=== PATIENT | female | born 1935 | race American Indian/Alaskan Native ===

== ENCOUNTER 2017-05-22 12:36 | Emergency (ER) | payer MEDICARE ==
[2017-05-22 13:07] VITALS: TEMP 98.5
--- NOTE | 2017-05-22 14:00 | ED PDOC ---
HPI: General Adult Time Seen by Provider: 05/22/17 13:14 Chief Complaint (Nursing): Lower Extremity Problem/Injury History Per: Patient Additional Complaint(s): Pt. states for the past 2 weeks she's had R lower leg pain and swelling. States on 04/19/2017 she took a [address] from [place] to here. She was seen by her PMD, Dr. Riojas who instructed her to come to ED for an US of the leg. Denies chest pain, palpitations, trauma, numbness, tingling, paresthesias, change in color. Past Medical History Reviewed: Historical Data, Nursing Documentation, Vital Signs Vital Signs: Last Vital Signs Temp 98.5 F 05/22/17 13:04 Pulse 77 05/22/17 13:04 Resp 17 05/22/17 13:04 BP 148/74 05/22/17 13:04 Pulse Ox 99 05/22/17 14:01 - Family History Family History: States: No Known Family Hx - Allergies Allergies/Adverse Reactions: Allergies Allergy/AdvReac Type Severity Reaction Status Date / Time tuberculin,PPD,multi-puncture Allergy ANAPHYLAXIS Verified 05/22/17 13:04 Review of Systems ROS Statement: Except As Marked, All Systems Reviewed And Found Negative Musculoskeletal: Positive for: Leg Pain Physical Exam - Physical Exam Appears: Positive for: Well, Non-toxic, No Acute Distress Skin: Positive for: Normal Color, Warm. Negative for: Rash Eye Exam: Positive for: Normal appearance Cardiovascular/Chest: Positive for: Regular Rate, Rhythm Respiratory: Positive for: Normal Breath Sounds. Negative for: Respiratory Distress Pulses-Dorsalis Pedis (L): 2+ Pulses-Dorsalis Pedis (R): 2+ Extremity: Positive for: Normal ROM, Calf Tenderness (R lower leg tenderness), Other (negative Yara's sign b/l; no skin changes to both legs). Negative for: Pedal Edema (b/l) Neurologic/Psych: Positive for: Alert, Oriented - Laboratory Results Result Diagrams: 05/22/17 13:47 05/22/17 13:47 - ECG O2 Sat by Pulse Oximetry: 99 - Progress ED Course And Treament: Labs ordered. Duplex R lower extremity ordered. Duplex RLE: no DVT Case d/w Dr. Riojas including elevated BNP and states pt. can be dc'd and f/u in his office. Disposition - Clinical Impression Clinical Impression: Leg swelling - Patient ED Disposition Is Patient to be Admitted: No - Disposition Referrals: Hebert Riojas MD [Family Provider] - Disposition: Routine/Home Disposition Time: 16:18 Condition: STABLE Instructions: Leg Pain (ED) Forms: [facility] (Fijian)
[2017-05-22 14:09] LABS: BASO # 0.1 K/uL (0.0-0.2); BASO % 0.9 % (0.0-2.0); EOS # 0.1 K/uL (0.0-0.7); EOS % 2.5 % (0.0-4.0); HEMATOCRIT 28.2 % (34.0-47.0); LYMPH # 0.7 K/uL (1.0-4.3); LYMPH % 12.1 % (20.0-40.0); MEAN CELL VOLUME 89.1 fl (81.0-99.0); MEAN CORPUSCULAR HEMOGLOBIN 28.9 pg (27.0-31.0); MEAN CORPUSCULAR HGB CONC 32.4 g/dL (33.0-37.0); MEAN PLATELET VOLUME 7.9 fl (7.2-11.7); MONO # 0.7 K/uL (0.0-0.8); MONO % 11.6 % (0.0-10.0); NEUT # 4.2 K/uL (1.8-7.0); NEUT % 72.9 % (50.0-75.0); NRBC % 0.1 % (0.0-0.0); RED CELL DISTRIBUTION WIDTH 14.3 % (11.5-14.5); WHITE BLOOD COUNT 5.8 K/uL (4.8-10.8)
[2017-05-22 14:17] LABS: ALB/GLOB RATIO 1.5 (1.0-2.1); ALKALINE PHOSPHATASE 58 U/L (38-126); AST/SGOT 25 U/L (14-36); BLOOD UREA NITROGEN 14 mg/dl (7-17); CARBON DIOXIDE 22 mmol/L (22-30); CHLORIDE 100 mmol/L (98-107); GFR AFRICAN-AMERICAN > 60; GLUCOSE,RANDOM 128 mg/dL (65-105); POTASSIUM 4.8 MMOL/L (3.6-5.0); SODIUM 133 mmol/l (132-148); TOTAL PROTEIN 6.7 G/DL (6.3-8.2)
[2017-05-22 14:27] LABS: ALT/SGPT 21 U/L (9-52); BILIRUBIN,TOTAL 0.5 mg/dl (0.2-1.3); CALCIUM 9.2 mg/dL (8.4-10.2)
[2017-05-22 14:37] LABS: PARTIAL THROMBOPLASTIN TIME 39.4 Seconds (25.6-37.1)
--- NOTE | 2017-05-22 15:10 | US ---
PROCEDURE: Right lower extremity venous duplex Doppler. HISTORY: pain and swelling COMPARISON: None available. TECHNIQUE: Common femoral, superficial femoral, popliteal and posterior tibial veins were evaluated. Flow was assessed with color Doppler, compressibility, assessment of phasic flow and augmentation response. FINDINGS: COMMON FEMORAL VEIN: Normal flow, compressibility and augmentation response. SUPERFICIAL FEMORAL VEIN: Normal flow, compressibility and augmentation response. POPLITEAL VEIN: Normal flow, compressibility and augmentation response. POSTERIOR TIBIAL VEIN: Normal flow, compressibility and augmentation response. OTHER FINDINGS: There are 3 hypoechoic collections in the popliteal fossa, the largest measures 1.2 x 1.3 cm. There is diffuse subcutaneous edema in the calf, ankle and popliteal fossa. IMPRESSION: No evidence of deep venous thrombosis in the right lower extremity. At least 3 fluid collections in the popliteal fossa, the larger of which likely represents a popliteal cyst. The sterility of these collections cannot be determined on ultrasound examination.
[2017-05-22 16:33] VITALS: BP 118/69; PULSE 72; RESP 18; O2SAT 98
== END 2017-05-22 16:33 | disposition home or self-care (01) ==
LOC: H.ER 12:36
DX: R60.0 Localized edema (principal); R79.89 Other specified abnormal findings of blood chemistry

== ENCOUNTER 2017-09-17 12:02 | Inpatient (IN) | payer MEDICARE ==
--- NOTE | 2017-09-17 13:29 | ED PDOC ---
Lower Extremity Pain/Injury Chief Complaint (Provider): s/p fall, poor PO intake History Per: Patient, Family History/Exam Limitations: no limitations Onset/Duration Of Symptoms: Days Current Symptoms Are (Timing): Still Present Severity: Moderate Pain Scale Rating Of: 5 Additional Complaint(s): 82 y/o female, with extensive PMHx, presents for evaluation secondary to poor PO intake. Pt suffered a fall on Wednesday 09/13 and underwent evaluation on [facility]. Head CT was negative, but pertinent evaluation findings were: nasal fracture, right wrist fracture, and left patellar fracture. No intervention was done at the hospital and pt was discharge on Tramadol and Meloxicam. Since discharge from [facility], mother and pt reports increased nausea, lack of appetite, poor PO fluid intake and constipation. Pt thinks the medications maybe causing her issues. Pain is currently 5/10. No headaches, changes in vision, CP/SOB/palpitations, V/D, numbness/tingling. PMD: Dr. Mcmanus PMR: Dr. Prince <Jose Martínez - Last Filed: 09/17/17 15:16> <Roya Lara - Last Filed: 09/17/17 16:21> Time Seen by Provider: 09/17/17 13:04 Chief Complaint (Nursing): Lower Extremity Problem/Injury Supervising Attending Note - Supervising Attending Note The Documented history was done by the: Physician Laundry Housekeeping Aide The documented physical exam was done by the: Physician Laundry Housekeeping Aide The documented procedures were done by the: Physician Laundry Housekeeping Aide - Attestation: I have personally seen and examined this patient.: Yes I have fully participated in the care of the patient.: Yes I have reviewed all pertinent clinical information, including history, physical exam and plan: Yes <Roya Lara - Last Filed: 09/17/17 16:21> Past Medical History Vital Signs: Last Vital Signs Temp 97.9 F 09/17/17 12:49 Pulse 85 09/17/17 12:49 Resp 16 09/17/17 12:49 BP 126/75 09/17/17 12:49 Pulse Ox 100 09/17/17 12:49 - Medical History PMH: Anemia, HTN, Hypercholesterolemia, Osteoporosis - Family History Family History: States: Unknown Family Hx - Immunization History Hx Tetanus Toxoid Vaccination: No Hx Influenza Vaccination: No Hx Pneumococcal Vaccination: No <BonideboraNeilJose - Last Filed: 09/17/17 15:16> Vital Signs: Last Vital Signs Temp 97.9 F 09/17/17 12:49 Pulse 85 09/17/17 12:49 Resp 16 09/17/17 12:49 BP 126/75 09/17/17 12:49 Pulse Ox 100 09/17/17 15:20 <LaraRoya ely Zac - Last Filed: 09/17/17 16:21> - Home Medications Home Medications: Ambulatory Orders Medication Instructions Recorded Atorvastatin [Lipitor] 09/17/17 - Allergies Allergies/Adverse Reactions: Allergies Allergy/AdvReac Type Severity Reaction Status Date / Time tuberculin,PPD,multi-puncture Allergy ANAPHYLAXIS Verified 09/17/17 12:48 levetiracetam [From Keppra] AdvReac DIZZINESS Verified 09/17/17 12:49 Wells Criteria for PE - Wells Criteria for Pulmonary Embolism Clinical Signs and Symptoms of DVT: No P.E is #1 Diagnosis, or Equally Likely: No Heart Rate >100: No Total Score: 0 <Jose Martínez - Last Filed: 09/17/17 15:16> Review of Systems ROS Statement: Except As Marked, All Systems Reviewed And Found Negative <Jose Martínez - Last Filed: 09/17/17 15:16> Physical Exam - Reviewed Nursing Documentation Reviewed: Yes Vital Signs Reviewed: Yes - Physical Exam Appears: Positive for: Non-toxic, No Acute Distress Head Exam: Positive for: NORMOCEPHALIC. Negative for: ATRAUMATIC (healing ecchymosis ) Skin: Positive for: Warm, Dry. Negative for: Pallor, Rash Eye Exam: Positive for: EOMI, PERRL, Other (left racoon eye ) ENT: Positive for: Other (nasal bridge edema healing ecchymosis s/p fracture) Neck: Positive for: Supple Cardiovascular/Chest: Positive for: Chest Non Tender, Irregularly Irregular. Negative for: JVD, Murmur Respiratory: Positive for: Normal Breath Sounds. Negative for: Decreased Breath Sounds, Rales, Rhonchi, Wheezing Pulses-Carotid (L): 2+ Pulses-Carotid (R): 2+ Gastrointestinal/Abdominal: Positive for: Bowel Sounds (normal BS), Soft. Negative for: Tenderness, Distended, Guarding, Rebound Extremity: Positive for: Tenderness (tenderness over left patella ). Negative for: Pedal Edema, Calf Tenderness, Deformity Neurologic/Psych: Positive for: Alert, market superintendent II-XII, Oriented. Negative for: Motor/Sensory Deficits <Jose Martínez - Last Filed: 09/17/17 15:16> - Laboratory Results Result Diagrams: 09/17/17 13:50 09/17/17 14:00 - ECG O2 Sat by Pulse Oximetry: 100 - Progress ED Course And Treament: CBC CMP UA EKG re-evaluated reviewed labs, discussed with [facility] resident Dr. Subramanian, pt to be admitted to acute rehab Re-evaluation Time: 15:17 Condition: Re-examined, Unchanged <Jose Martínez - Last Filed: 09/17/17 15:16> - Laboratory Results Result Diagrams: 09/17/17 13:50 09/17/17 14:00 <Roya Lara - Last Filed: 09/17/17 16:21> Disposition - Patient ED Disposition Is Patient to be Admitted: Yes - Disposition Disposition: Rehab Facility/Unit Disposition Time: 15:19 - Pt Status Changed To: Hospital Disposition Of: Inpatient - Admit Certification Admit to Inpatient:: After my assessment, the patient will require hospitalization for at least two midnights. This is because of the severity of symptoms shown, intensity of services needed, and/or the medical risk in this patient being treated as an outpatient. - POA Present On Arrival: Falls Or Trauma (s/p fall 09/13/2016) <Jose Martínez - Last Filed: 09/17/17 15:16> <Roya Lara - Last Filed: 09/17/17 16:21> - Clinical Impression Clinical Impression: Ankle injury, Physical deconditioning, Patellar fracture - Disposition Condition: STABLE
[2017-09-17 14:22] LABS: HEMOGLOBIN 9.2 g/dL (12.0-16.0); MEAN CELL VOLUME 81.3 fl (81.0-99.0); MEAN CORPUSCULAR HEMOGLOBIN 26.7 pg (27.0-31.0); MEAN CORPUSCULAR HGB CONC 32.8 g/dL (33.0-37.0); RBC 3.44 Mil/uL (3.80-5.20); RED CELL DISTRIBUTION WIDTH 15.5 % (11.5-14.5); WHITE BLOOD COUNT 5.8 K/uL (4.8-10.8)
[2017-09-17 14:32] LABS: ALB/GLOB RATIO 1.1 (1.0-2.1); ALBUMIN 3.7 g/dL (3.5-5.0); ALT/SGPT 21 U/L (9-52); AST/SGOT 22 U/L (14-36); BLOOD UREA NITROGEN 14 mg/dl (7-17); CALCIUM 8.9 mg/dL (8.4-10.2); GFR AFRICAN-AMERICAN > 60; GFR NON-AFRICAN AMERICAN > 60
--- NOTE | 2017-09-17 16:04 | CARD ---
APPROVED REPORT EKG Measurement Heart [id number] <Conclusion> Atrial fibrillation Nonspecific ST abnormality Abnormal ECG
--- NOTE | 2017-09-17 16:24 | CP.PCM.HP ---
History of Present Illness - History of Present Illness History of Present Illness: 82 yr old F presented to ED with complaint of severe right wrist and left knee pain along with intolerance to food and liquids s/p mechanical fall at home on . PMHx includes CAD s/p 4 stents placed, chronic A-fib -rate controlled, NIDDM type 2, chronic distal lateral RLE ulcer. Patient was seen and evaluated at [facility], was informed she had a left patella fracture and right wrist sprain, her right hand was placed in a splint and wrapped in JUANA bandage, she is right handed and could not get her balance using the cane with her left hand. She was discharged on the 09/14/17 with instructions to follow up with orthopedics as outpatient. Patient lives alone and was not able to move around her home as there are stairs leading up to her apartment and she also felt overall malaise, nausea/vomiting and couldn't keep food down. She could not get an appointment sooner with orthopedics outpatient. Denies chest pain, SOB, syncope or fevers/chills. Reports extreme difficulty moving around, getting her meds and doing minimal ADL's. PMD: Dr. Hardy Specialists: Dr. Nunez-wound care ; waiting to have appt with new energy efficiency finance manager: Dr. Boyd PMHx: CAD s/p 4 stents placed March 2009, chronic A-fib -rate controlled, NIDDM type 2, chronic distal lateral RLE ulcer SurgHx: BTL, 4 cardiac stents March 2009, tonsillectomy/adenoidectomy, Right thumb trigger finger release FMHx: mother from [place], had thyroid disease, Father at 56 yrs old from stomach cancer, sister at 51 yrs old from aneurysm SocHx: denies smoking, Etoh and drugs Medications: see medication reconciliation Allergies: tuberculin skin test/PPD, levetiracetam Present on Admission - Present on Admission Any Indicators Present on Admission: No History of DVT/PE: No History of Uncontrolled Diabetes: No Urinary Catheter: No Decubitus Ulcer Present: No History Surgical Site Infection Following: None Review of Systems - Review of Systems All systems: reviewed and no additional remarkable complaints except (for what is mentioned in the HPI) - Constitutional Constitutional: Weakness. absent: Chills - EENT Eyes: absent: Change in Vision Ears: absent: Dizziness Nose/Mouth/Throat: absent: Nasal Congestion, Nasal Discharge, Dysphagia - Cardiovascular Cardiovascular: Leg Ulcers (chronic distal lateral RLE). absent: Chest Pain, Palpitations, Pedal Edema - Respiratory Respiratory: absent: Cough, Dyspnea, Hemoptysis - Gastrointestinal Gastrointestinal: Nausea, Vomiting - Genitourinary Genitourinary: absent: Difficulty Urinating, Dysuria - Musculoskeletal Musculoskeletal: Joint Swelling (left knee s/p mechanical fall) Additional comments: right wrist pain - Neurological Neurological: Disequilibrium (cannot balance herself using left hand and cane, she is right hand dominant). absent: Confusion, Syncope - Psychiatric Psychiatric: absent: Anxiety, Homicidal Ideation, Suicidal Ideation - Endocrine Endocrine: absent: Polyphagia, Polyuria - Hematologic/Lymphatic Hematologic: absent: Easy Bleeding, Easy Bruising Past Patient History - Past Social History Smoking Status: Never Smoked - CARDIAC Hx Hypercholesterolemia: Yes Hx Hypertension: Yes - ENDOCRINE/METABOLIC Hx Diabetes Mellitus Type 2: Yes - HEMATOLOGICAL/ONCOLOGICAL Hx Anemia: Yes - MUSCULOSKELETAL/RHEUMATOLOGICAL Hx Osteoporosis: Yes - PSYCHIATRIC Hx Substance Use: No - ANESTHESIA Hx Anesthesia: No Meds Allergies/Adverse Reactions: Allergies Allergy/AdvReac Type Severity Reaction Status Date / Time tuberculin,PPD,multi-puncture Allergy ANAPHYLAXIS Verified 09/17/17 12:48 levetiracetam [From [facility]] AdvReac DIZZINESS Verified 09/17/17 12:49 Physical Exam - Constitutional Appears: No Acute Distress - Head Exam Head Exam: NORMOCEPHALIC Additional comments: ecchymosis present over dorsum of nose and left palpebromalar sulcus area - Eye Exam Eye Exam: EOMI, PERRL - ENT Exam ENT Exam: Mucous Membranes Dry - Neck Exam Neck exam: Positive for: Full Rom - Respiratory Exam Respiratory Exam: Clear to Auscultation Bilateral, NORMAL BREATHING PATTERN - Cardiovascular Exam Cardiovascular Exam: REGULAR RHYTHM, +S1, +S2 - GI/Abdominal Exam GI & Abdominal Exam: Normal Bowel Sounds, Soft. absent: Tenderness - Extremities Exam Extremities exam: Positive for: joint swelling (significant left knee and surrounding area with tenderness to light palpation all around), pedal pulses present. Negative for: pedal edema Additional comments: Right hand in posterior splint and juana bandage, Stage 2 RLE ulcer lateral distal along fibularis longus area, 2 x 1 cm with granulation tissue, no discharge - Back Exam Back exam: absent: CVA tenderness (L), CVA tenderness (R) - Neurological Exam Neurological exam: Alert, CN II-XII Intact, Oriented x3 - Psychiatric Exam Psychiatric exam: Normal Affect, Normal Mood - Skin Skin Exam: Dry, Normal Color, Warm Results - Vital Signs Recent Vital Signs: Last Vital Signs Temp 97.9 F 09/17/17 12:49 Pulse 85 09/17/17 12:49 Resp 16 09/17/17 12:49 BP 126/75 09/17/17 12:49 Pulse Ox 100 09/17/17 15:20 - Labs Result Diagrams: 09/17/17 13:50 09/17/17 14:00 Labs: Laboratory Results - last 24 hr 09/17/17 09/17/17 13:50 14:00 WBC 5.8 RBC 3.44 L Hgb 9.2 L Hct 27.9 L MCV 81.3 D MCH 26.7 L MCHC 32.8 L RDW 15.5 H Plt Count 293 Sodium 134 Potassium 3.8 Chloride 96 L Carbon Dioxide 28 Anion Gap 14 BUN 14 Creatinine 0.8 Est GFR ( Amer) > 60 Est GFR (Non-Af Amer) > 60 Random Glucose 227 H Calcium 8.9 Total Bilirubin 0.5 AST 22 ALT 21 Alkaline Phosphatase 77 Total Protein 7.0 Albumin 3.7 Globulin 3.3 Albumin/Globulin Ratio 1.1 Assessment & Plan - Assessment and Plan (Free Text) Assessment: 82 yr old F admitted for intolerance to PO diet, gait imbalance and difficulties with minimal ADL's s/p mechanical fall resulting in left patella fracture and right wrist sprain. -admit to telemetry -continue home medications -Orthopedic consult appreciated: will follow recommendations -Cardiology consult appreciated: will follow recommendations, chronic A-fib- rate controlled on Xarelto -liquid diet, Zofran PRN -Podiatry consult: Dr. Nunez -chronic RLE ulcer -wound care -IVF -f/u UA, next day CBC, CMP, coags - Date & Time Date: 09/17/17 Time: 15:45
[2017-09-17] MEDS: Sodium Chloride 0.9% 1,000 ML IV SCH (17:30)
[2017-09-17] MEDS: Latanoprost 0.005% Opht SOUTION OU SCH (21:56)
[2017-09-18] MEDS ORDERED: Docusate-Senna 50 mg-8.6 mg Tab PO ONE (00:06)
[2017-09-18 06:05] LABS: BASO # 0.1 K/uL (0.0-0.2); BASO % 0.9 % (0.0-2.0); EOS # 0.3 K/uL (0.0-0.7); EOS % 5.2 % (0.0-4.0); HEMOGLOBIN 7.5 g/dL (12.0-16.0); LYMPH # 0.7 K/uL (1.0-4.3); LYMPH % 13.1 % (20.0-40.0); MEAN CELL VOLUME 81.1 fl (81.0-99.0); MEAN CORPUSCULAR HEMOGLOBIN 26.2 pg (27.0-31.0); MEAN CORPUSCULAR HGB CONC 32.3 g/dL (33.0-37.0); MEAN PLATELET VOLUME 8.2 fl (7.2-11.7); MONO # 0.6 K/uL (0.0-0.8); MONO % 10.9 % (0.0-10.0); NEUT # 3.9 K/uL (1.8-7.0); NEUT % 69.9 % (50.0-75.0); RBC 2.85 Mil/uL (3.80-5.20); RED CELL DISTRIBUTION WIDTH 15.1 % (11.5-14.5); WHITE BLOOD COUNT 5.6 K/uL (4.8-10.8)
[2017-09-18 06:22] LABS: INR 1.3 (0.9-1.2); PROTHROMBIN TIME 14.5 Seconds (9.8-13.1)
[2017-09-18 06:23] LABS: PARTIAL THROMBOPLASTIN TIME 33.7 Seconds (25.6-37.1)
[2017-09-18 06:32] LABS: BLOOD UREA NITROGEN 17 mg/dl (7-17); CALCIUM 8.7 mg/dL (8.4-10.2); GFR AFRICAN-AMERICAN > 60; GFR NON-AFRICAN AMERICAN 53
[2017-09-18] MEDS: Sodium Chloride 0.9% 1,000 ML IV SCH (06:40)
[2017-09-18] MEDS: GlipiZIDE 2.5 mg SR Tab PO SCH (08:18)
[2017-09-18] MEDS: Metoprolol Succinate 25 mg XL Tab PO SCH (08:21)
[2017-09-18] MEDS: diltiaZEM 240 mg/24 Hours CD Cap PO SCH (08:22)
[2017-09-18] MEDS: Venlafaxine 37.5 mg ER Cap PO SCH (08:22)
[2017-09-18] MEDS ORDERED: Enoxaparin 40 mg Syringe SC SCH (09:00)
[2017-09-18 10:08] LABS: IRON 20 ug/dL (37-170)
[2017-09-18 10:17] LABS: TOTAL IRON BINDING CAPACITY 324 ug/dL (250-450)
[2017-09-18 10:19] LABS: % IRON SATURATION 6 % (20-55)
[2017-09-18 10:28] LABS: FERRITIN 66.6 ng/Ml (11.1-264.0)
--- NOTE | 2017-09-18 11:02 | CP.PCM.CON ---
History of Present Illness - History of Present Illness History of Present Illness: THE PATIENT IS AN 82 YEAR OLD FEMALE WHO TRIPPED ON A THROW RUG IN HER HOME ON AND FELL HITTING HER RIGHT WRIST, LEFT KNEE AND FACE. SHE SUSTAINED A LEFT PATELLA FRACTURE, NASAL FRACTURES AND A RIGHT WRIST SPRAIN AND WAS SEEN AT [facility] ER AND WAS DISCHARGED WITH HER DAUGHTER TO HER DAUGHTER 'S HOUSE. SHE COULD NOT CARRY ON WITH ACTIVITIES OF DAILY LIVING AND WENT TO THE ER AT [facility] AND WAS ADMITTED AND WILL GO TO REHAB. SHE ALSO HAS A HISTORY OF CAD, CHRONIC ATRIAL FIBRILLATION, HYPERTENSION, HYPERLIPIDEMIA, TYPE 2 DM AND DEPRESSION. CARDIOLOGY WAS ASKED TO SEE HER DUE TO HER CARDIAC HISTORY. 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 SHE WENT ON TO HAVE A CARDIAC CATHETERIZATION AND HAD CORONARY STENT INSERTIONS AND HAS BEEN STABLE SINCE. SHE STATES THAT SHE NEVER HAD A HEART ATTACK TO HER KNOWLEDGE. SHE DEVELOPED ATRIAL FIBRILLATION IN 2014 AND WAS PLACED ON XARELTO. SHE WAS ASKED IF SHE POSSIBLY GOT LIGHTHEADED OR HAD A BRIEF LOC ON 09/13/17 BUT EMPHATICALLY INSISTS THAT SHE JUST SLIPPED ON A THROW RUG CAUSING HER TO FALL AND SUSTAIN HER INJURIES. Past Patient History - Past Medical History & Family History Past Medical History?: Yes - Past Social History Smoking Status: Never Smoked - CARDIAC Hx Hypercholesterolemia: Yes Hx Hypertension: Yes - ENDOCRINE/METABOLIC Hx Diabetes Mellitus Type 2: Yes - HEMATOLOGICAL/ONCOLOGICAL Hx Anemia: Yes - MUSCULOSKELETAL/RHEUMATOLOGICAL Hx Osteoporosis: Yes - PSYCHIATRIC Hx Substance Use: No - ANESTHESIA Hx Anesthesia: No Meds Allergies/Adverse Reactions: Allergies Allergy/AdvReac Type Severity Reaction Status Date / Time tuberculin,PPD,multi-puncture Allergy ANAPHYLAXIS Verified 09/17/17 12:48 levetiracetam [From [facility]] AdvReac DIZZINESS Verified 09/17/17 12:49 - Medications Medications: Current Medications Acetaminophen (Tylenol 325mg Tab) 650 mg PO Q6 PRN PRN Reason: Pain, moderate (4-7) Aspirin (Ecotrin) 81 mg PO HS [facility] Last Admin: 09/17/17 21:56 Dose: 81 mg Atorvastatin Calcium (Lipitor) 40 mg PO HS [facility] Last Admin: 09/17/17 21:56 Dose: 40 mg Diltiazem HCl (Cardizem Cd) 240 mg PO DAILY [facility] Last Admin: 09/18/17 08:22 Dose: 240 mg Ferrous Sulfate (Feosol) 325 mg PO DAILY [facility] Last Admin: 09/18/17 08:18 Dose: 325 mg Glipizide (Glucotrol Xl) 2.5 mg PO DAILYWM [facility] Last Admin: 09/18/17 08:18 Dose: 2.5 mg Sodium Chloride (Sodium Chloride 0.9%) 1,000 mls @ 80 mls/hr IV .[id number] [facility] Stop: 09/18/17 16:03 Last Admin: 09/18/17 06:40 Dose: 80 mls/hr Isosorbide Mononitrate (Imdur) 60 mg PO DAILY [facility] Last Admin: 09/18/17 08:22 Dose: 60 mg Latanoprost (Xalatan Opht) 1 drop OU HS [facility] Last Admin: 09/17/17 21:56 Dose: 1 drop Metformin HCl (Glucophage) 1,000 mg PO BID [facility] Last Admin: 09/18/17 08:18 Dose: 1,000 mg Metoprolol Succinate (Toprol Xl) 25 mg PO DAILY [facility] Last Admin: 09/18/17 08:21 Dose: 25 mg Ondansetron HCl (Zofran Inj) 4 mg IVP Q6 PRN PRN Reason: Nausea/Vomiting Rivaroxaban (Xarelto) 15 mg PO DAILY@1700 [facility] PRN Reason: Protocol Timolol Maleate (Timoptic 0.5% Oph Soln) 1 drop OU DAILY [facility] Last Admin: 09/18/17 08:23 Dose: 1 drop Venlafaxine HCl (Effexor Xr) 37.5 mg PO DAILY [facility] Last Admin: 09/18/17 08:22 Dose: 37.5 mg Physical Exam - Respiratory Exam Respiratory Exam: Clear to Auscultation Bilateral - Cardiovascular Exam Cardiovascular Exam: Irregular Rhythm, +S1, +S2 - Extremities Exam Additional comments: RIGHT WRIST WITH A SPLINT AND BANDAGES LEFT KNEE WITH A PLASTIC CAST - Additional Findings Additional findings: EKG ATRIAL FIBRILLATION, R 60 BPM, NSSTT CHANGES H/H 9.2/27.[address] 293K 09/17/17 H/H TODAY 7.7/23.1 Results - Vital Signs Recent Vital Signs: Last Vital Signs Temp 98.2 F 09/18/17 07:36 Pulse 69 09/18/17 08:22 Resp 18 09/18/17 07:36 BP 139/69 09/18/17 08:22 Pulse Ox 98 09/18/17 07:36 - Labs Result Diagrams: 09/18/17 05:30 09/18/17 05:30 Labs: Laboratory Results - last 24 hr 09/17/17 09/17/17 09/17/17 13:50 14:00 16:53 WBC 5.8 RBC 3.44 L Hgb 9.2 L Hct 27.9 L MCV 81.3 D MCH 26.7 L MCHC 32.8 L RDW 15.5 H Plt Count 293 MPV Neut % (Auto) Lymph % (Auto) Porter % (Auto) Eos % (Auto) Baso % (Auto) Neut # Lymph # Porter # Eos # Baso # PT INR APTT Sodium 134 Potassium 3.8 Chloride 96 L Carbon Dioxide 28 Anion Gap 14 BUN 14 Creatinine 0.8 Est GFR ( Amer) > 60 Est GFR (Non-Af Amer) > 60 POC Glucose (mg/dL) 168 H Random Glucose 227 H Calcium 8.9 Iron TIBC % Saturation Ferritin Total Bilirubin 0.5 AST 22 ALT 21 Alkaline Phosphatase 77 Total Protein 7.0 Albumin 3.7 Globulin 3.3 Albumin/Globulin Ratio 1.1 BBK History Checked 09/17/17 09/18/17 09/18/17 21:27 05:30 05:30 WBC 5.6 RBC 2.85 L Hgb 7.5 L Hct 23.1 L MCV 81.1 MCH 26.2 L MCHC 32.3 L RDW 15.1 H Plt Count 238 MPV 8.2 Neut % (Auto) 69.9 Lymph % (Auto) 13.1 L Porter % (Auto) 10.9 H Eos % (Auto) 5.2 H Baso % (Auto) 0.9 Neut # 3.9 Lymph # 0.7 L Porter # 0.6 Eos # 0.3 Baso # 0.1 PT INR APTT Sodium 133 Potassium 3.9 Chloride 100 Carbon Dioxide 24 Anion Gap 13 BUN 17 Creatinine 1.0 Est GFR ( Amer) > 60 Est GFR (Non-Af Amer) 53 POC Glucose (mg/dL) 136 H Random Glucose 97 Calcium 8.7 Iron TIBC % Saturation Ferritin Total Bilirubin AST ALT Alkaline Phosphatase Total Protein Albumin Globulin Albumin/Globulin Ratio BBK History Checked 09/18/17 09/18/17 09/18/17 05:30 05:35 09:44 WBC RBC Hgb Hct MCV MCH MCHC RDW Plt Count MPV Neut % (Auto) Lymph % (Auto) Porter % (Auto) Eos % (Auto) Baso % (Auto) Neut # Lymph # Porter # Eos # Baso # PT 14.5 H INR 1.3 H APTT 33.7 Sodium Potassium Chloride Carbon Dioxide Anion Gap BUN Creatinine Est GFR ( Amer) Est GFR (Non-Af Amer) POC Glucose (mg/dL) 99 Random Glucose Calcium Iron 20 L TIBC 324 % Saturation 6 L Ferritin Total Bilirubin AST ALT Alkaline Phosphatase Total Protein Albumin Globulin Albumin/Globulin Ratio BBK History Checked 09/18/17 09/18/17 09:44 10:49 WBC RBC Hgb Hct MCV MCH MCHC RDW Plt Count MPV Neut % (Auto) Lymph % (Auto) Porter % (Auto) Eos % (Auto) Baso % (Auto) Neut # Lymph # Porter # Eos # Baso # PT INR APTT Sodium Potassium Chloride Carbon Dioxide Anion Gap BUN Creatinine Est GFR ( Amer) Est GFR (Non-Af Amer) POC Glucose (mg/dL) Random Glucose Calcium Iron TIBC % Saturation Ferritin 66.6 Total Bilirubin AST ALT Alkaline Phosphatase Total Protein Albumin Globulin Albumin/Globulin Ratio BBK History Checked No verified bt Assessment & Plan - Assessment and Plan (Free Text) Assessment: FALL WITH MULTIPLE TRAUMA INCLUDING NASAL FRACTURES, LEFT PATELLA FRACTURE AND RIGHT WRIST SPRAIN CAD CHRONIC ATRIAL FIBRILLATION HYPERTENSION HYPERLIPIDEMIA TYPE 2 DM ANEMIA WITH H/H DROP FROM 09/17/17 TO 09/18/17-PROBABLY FROM TRAUMA MAY ALSO MAY BE DILUTIONAL SHE IS ON IV FLUIDS Plan: THE PATIENT WAS ADMITTED TO 4N ON TELEMETRY SHE IS ON DILTIAZEM, METOPROLOL, ASPIRIN, XARELTO, NITRATES AND ATORVASTATIN I WILL STOP XARELTO AND ASPIRIN FOR NOW DUE TO HER ANEMIA AND FOLLOW H/H TO SEE IF SHE NEEDS TO BE TRANSFUSED REPEAT CBC IN AM AND PATIENT WILL TYPED AND SCREENED FOR REHAB
--- NOTE | 2017-09-18 11:34 | CP.PCM.CON ---
History of Present Illness - History of Present Illness History of Present Illness: Podiatry Consult Note- Dr. Donnelly 82 y.o f with PMH of CAD, chronic atrial fibrillation, HTN, hyperlipidemia, DM2 consulted for chronic right leg ulceration. Patient is known to Dr. Nunez for continue treatment of her right LE ulceration. Patient denies odor, drainage , pain to the ulceration. Patient reports that she changes her dressing daily at home with Santyl. She denies n/v/sob/cp/chills or f. Past Patient History - Past Medical History & Family History Past Medical History?: Yes - Past Social History Smoking Status: Never Smoked - CARDIAC Hx Hypercholesterolemia: Yes Hx Hypertension: Yes - ENDOCRINE/METABOLIC Hx Diabetes Mellitus Type 2: Yes - HEMATOLOGICAL/ONCOLOGICAL Hx Anemia: Yes - MUSCULOSKELETAL/RHEUMATOLOGICAL Hx Osteoporosis: Yes - PSYCHIATRIC Hx Substance Use: No - ANESTHESIA Hx Anesthesia: No Meds Allergies/Adverse Reactions: Allergies Allergy/AdvReac Type Severity Reaction Status Date / Time tuberculin,PPD,multi-puncture Allergy ANAPHYLAXIS Verified 09/17/17 12:48 levetiracetam [From [facility]] AdvReac DIZZINESS Verified 09/17/17 12:49 - Medications Medications: Current Medications Acetaminophen (Tylenol 325mg Tab) 650 mg PO Q6 PRN PRN Reason: Pain, moderate (4-7) Atorvastatin Calcium (Lipitor) 40 mg PO HS [facility] Last Admin: 09/17/17 21:56 Dose: 40 mg Diltiazem HCl (Cardizem Cd) 240 mg PO DAILY [facility] Last Admin: 09/18/17 08:22 Dose: 240 mg Ferrous Sulfate (Feosol) 325 mg PO DAILY [facility] Last Admin: 09/18/17 08:18 Dose: 325 mg Glipizide (Glucotrol Xl) 2.5 mg PO DAILYWM [facility] Last Admin: 09/18/17 08:18 Dose: 2.5 mg Sodium Chloride (Sodium Chloride 0.9%) 1,000 mls @ 80 mls/hr IV .[id number] [facility] Stop: 09/18/17 16:03 Last Admin: 09/18/17 06:40 Dose: 80 mls/hr Isosorbide Mononitrate (Imdur) 60 mg PO DAILY [facility] Last Admin: 09/18/17 08:22 Dose: 60 mg Latanoprost (Xalatan Opht) 1 drop OU HS [facility] Last Admin: 09/17/17 21:56 Dose: 1 drop Metformin HCl (Glucophage) 1,000 mg PO BID [facility] Last Admin: 09/18/17 08:18 Dose: 1,000 mg Metoprolol Succinate (Toprol Xl) 25 mg PO DAILY [facility] Last Admin: 09/18/17 08:21 Dose: 25 mg Ondansetron HCl (Zofran Inj) 4 mg IVP Q6 PRN PRN Reason: Nausea/Vomiting Timolol Maleate (Timoptic 0.5% Ophth Soln) 1 drop OU DAILY [facility] Last Admin: 09/18/17 08:23 Dose: 1 drop Venlafaxine HCl (Effexor Xr) 37.5 mg PO DAILY [facility] Last Admin: 09/18/17 08:22 Dose: 37.5 mg Physical Exam - Constitutional Appears: Well, Non-toxic, No Acute Distress - Extremities Exam Additional comments: Vasc: DP and PT weakly palpable, CFT < 3 seconds, temperature is cool to cool, no edema noted Ortho: no pain with palpation to the ulceration, MM is 5/5 in all four compartments Neuro: gross sensation intact, protective sensation diminished Derm: partial thickness ulceration noted to the posterior lateral aspect of lower leg measuring approximately 2.5 x 3 x .1, no probe to bone, no erythema, no drainage, no purulence, no undermining, or tunneling, no odor, no clinical signs of infection. Wound base is 80% fibrotic centrally with 20% granular base in peripheral. - Neurological Exam Neurological exam: Alert, Oriented x3 - Psychiatric Exam Psychiatric exam: Normal Affect, Normal Mood Results - Vital Signs Recent Vital Signs: Last Vital Signs Temp 98.2 F 09/18/17 07:36 Pulse 69 09/18/17 08:22 Resp 18 09/18/17 07:36 BP 139/69 09/18/17 08:22 Pulse Ox 98 09/18/17 07:36 - Labs Result Diagrams: 09/18/17 05:30 09/18/17 05:30 Labs: Laboratory Results - last 24 hr 09/17/17 09/17/17 09/17/17 13:50 14:00 16:53 WBC 5.8 RBC 3.44 L Hgb 9.2 L Hct 27.9 L MCV 81.3 D MCH 26.7 L MCHC 32.8 L RDW 15.5 H Plt Count 293 MPV Neut % (Auto) Lymph % (Auto) [place] % (Auto) Eos % (Auto) Baso % (Auto) Neut # Lymph # [place] # Eos # Baso # PT INR APTT Sodium 134 Potassium 3.8 Chloride 96 L Carbon Dioxide 28 Anion Gap 14 BUN 14 Creatinine 0.8 Est GFR ( Amer) > 60 Est GFR (Non-Af Amer) > 60 POC Glucose (mg/dL) 168 H Random Glucose 227 H Calcium 8.9 Iron TIBC % Saturation Ferritin Total Bilirubin 0.5 AST 22 ALT 21 Alkaline Phosphatase 77 Total Protein 7.0 Albumin 3.7 Globulin 3.3 Albumin/Globulin Ratio 1.1 BBK History Checked 09/17/17 09/18/17 09/18/17 21:27 05:30 05:30 WBC 5.6 RBC 2.85 L Hgb 7.5 L Hct 23.1 L MCV 81.1 MCH 26.2 L MCHC 32.3 L RDW 15.1 H Plt Count 238 MPV 8.2 Neut % (Auto) 69.9 Lymph % (Auto) 13.1 L [place] % (Auto) 10.9 H Eos % (Auto) 5.2 H Baso % (Auto) 0.9 Neut # 3.9 Lymph # 0.7 L [place] # 0.6 Eos # 0.3 Baso # 0.1 PT INR APTT Sodium 133 Potassium 3.9 Chloride 100 Carbon Dioxide 24 Anion Gap 13 BUN 17 Creatinine 1.0 Est GFR ( Amer) > 60 Est GFR (Non-Af Amer) 53 POC Glucose (mg/dL) 136 H Random Glucose 97 Calcium 8.7 Iron TIBC % Saturation Ferritin Total Bilirubin AST ALT Alkaline Phosphatase Total Protein Albumin Globulin Albumin/Globulin Ratio BBK History Checked 09/18/17 09/18/17 09/18/17 05:30 05:35 09:44 WBC RBC Hgb Hct MCV MCH MCHC RDW Plt Count MPV Neut % (Auto) Lymph % (Auto) [place] % (Auto) Eos % (Auto) Baso % (Auto) Neut # Lymph # [place] # Eos # Baso # PT 14.5 H INR 1.3 H APTT 33.7 Sodium Potassium Chloride Carbon Dioxide Anion Gap BUN Creatinine Est GFR ( Amer) Est GFR (Non-Af Amer) POC Glucose (mg/dL) 99 Random Glucose Calcium Iron 20 L TIBC 324 % Saturation 6 L Ferritin Total Bilirubin AST ALT Alkaline Phosphatase Total Protein Albumin Globulin Albumin/Globulin Ratio BBK History Checked 09/18/17 09/18/17 09/18/17 09:44 10:49 11:25 WBC RBC Hgb Hct MCV MCH MCHC RDW Plt Count MPV Neut % (Auto) Lymph % (Auto) [place] % (Auto) Eos % (Auto) Baso % (Auto) Neut # Lymph # [place] # Eos # Baso # PT INR APTT Sodium Potassium Chloride Carbon Dioxide Anion Gap BUN Creatinine Est GFR ( Amer) Est GFR (Non-Af Amer) POC Glucose (mg/dL) 144 H Random Glucose Calcium Iron TIBC % Saturation Ferritin 66.6 Total Bilirubin AST ALT Alkaline Phosphatase Total Protein Albumin Globulin Albumin/Globulin Ratio BBK History Checked No verified bt Assessment & Plan - Assessment and Plan (Free Text) Assessment: 82 y.o f with PMH of CAD, chronic atrial fibrillation, HTN, hyperlipidemia, DM2 with chronic right leg ulceration secondary to DM- stable, no clinical signs of infection Plan: Patient seen and evaluated Discussed plan in detail with attending Dr Donnelly Labs, vitals, charts reviewed Ulceration cleansed with saline solution and covered with dsd Will order santyl. Will apply to wounds daily Stable per podiatry Podiatry will continue to follow while in house
--- NOTE | 2017-09-18 12:09 | PQF GENQUE ---
Dr. Barahona, Please clarify the type of anemia: if in agreement with the dx. and if known; i.e. Blood loss anemia, acute Blood loss anemia, chronic Chronic anemia Deficiency anemia (please specify type) Due to/in/with antineoplastic chemotherapy Due to/in/with chronic kidney disease Due to/in/with kidney failure Due to/in/with neoplastic disease Iron deficiency anemia Macrocytic anemia Microcytic anemia Normocytic anemia Postoperative blood loss anemia Pernicious anemia Other anemia (please specify) Clinically unable to determine Unknown Cardiology consult documentation includes: ANEMIA WITH DROP FROM 09/17/17 TO -PROBABLY Plan: I WILL STOP XARELTO AND ASPIRIN FOR NOW DUE TO HER ANEMIA AND FOLLOW H/H TO SEE IF SHE NEEDS TO BE TRANSFUSED FROM TRAUMA. RBC:3.44->2.85 H/H:9.2/27.9->7.5/23.1 Iron:20 TIBC:324 %Saturation 6 Fetrritin:66.6 09/17: ferrous sulfate ordered This form is a permanent part of the medical record Clarification of your documentation is requested to better reflect the severity of illness and intensity of treatment of your patient. Indicators present [] Specify: [] [] Specify: [] [] Specify: [] [] Specify: [] Location in the medical record that reflects the above clinical findings: [] Treatment Provided: [] PHYSICIAN'S RESPONSE Based on your medical judgment of the clinical indicators outlined above please clarify the following: [] Practitioner response [] If unable to determine, please check the box, sign and date. Present On Admission (POA) Indicator: [] Present at the time of admission [] Not present at the time of admission [] Clinically Undetermined In responding to this query, please exercise your independent professional judgment. The fact that a question is asked does not imply that any particular answer is desired or expected. Thank you for your clarification on this documentation. If you have any questions please call. * Thank you, Martha Pierce RN ext. #[phone] MTDD
--- NOTE | 2017-09-18 12:20 | PQF GENQUE ---
Dr. Barahona, 2 queries as follows: 1. If in agreement :please list the BMI:19.4 in your progress note 2. And please provide a correlating diagnosis, if known, related to the the following clinical indicator present in the medical record: BMI:19.4; versus Small Frame etc. OR; Unable to determine OR: Unknown This form is a permanent part of the medical record Clarification of your documentation is requested to better reflect the severity of illness and intensity of treatment of your patient. Indicators present [] Specify: [] [] Specify: [] [] Specify: [] [] Specify: [] Location in the medical record that reflects the above clinical findings: [] Treatment Provided: [] PHYSICIAN'S RESPONSE Based on your medical judgment of the clinical indicators outlined above please clarify the following: [] Practitioner response [] If unable to determine, please check the box, sign and date. Present On Admission (POA) Indicator: [] Present at the time of admission [] Not present at the time of admission [] Clinically Undetermined In responding to this query, please exercise your independent professional judgment. The fact that a question is asked does not imply that any particular answer is desired or expected. Thank you for your clarification on this documentation. If you have any questions please call. * Thank you, Martha Pierce RN ext. #[phone] MTDD
--- NOTE | 2017-09-18 13:32 | CP.PCM.PN ---
Subjective - Date & Time of Evaluation Date of Evaluation: 09/18/17 Time of Evaluation: 10:40 - Subjective Subjective: Patient seen and examined at bedside with attending- Dr. Barahona. Patient reports she now has minimal appetite, upon further questioning reports history of ANALI with iron supplementation. Denies chest pain, SOB, nausea or vomiting. Objective - Vital Signs/Intake and Output Vital Signs (last 24 hours): Temp Pulse Resp BP Pulse Ox 98.6 F 74 18 134/56 L 98 09/18/17 12:00 09/18/17 12:00 09/18/17 12:00 09/18/17 12:00 09/18/17 12:00 - Medications Medications: Current Medications Acetaminophen (Tylenol 325mg Tab) 650 mg PO Q6 PRN PRN Reason: Pain, moderate (4-7) Atorvastatin Calcium (Lipitor) 40 mg PO HS [facility] Last Admin: 09/17/17 21:56 Dose: 40 mg Diltiazem HCl (Cardizem Cd) 240 mg PO DAILY [facility] Last Admin: 09/18/17 08:22 Dose: 240 mg Ferrous Sulfate (Feosol) 325 mg PO DAILY [facility] Last Admin: 09/18/17 08:18 Dose: 325 mg Glipizide (Glucotrol Xl) 2.5 mg PO DAILYWM [facility] Last Admin: 09/18/17 08:18 Dose: 2.5 mg Sodium Chloride (Sodium Chloride 0.9%) 1,000 mls @ 80 mls/hr IV .[id number] [facility] Stop: 09/18/17 16:03 Last Admin: 09/18/17 06:40 Dose: 80 mls/hr Isosorbide Mononitrate (Imdur) 60 mg PO DAILY [facility] Last Admin: 09/18/17 08:22 Dose: 60 mg Latanoprost (Xalatan Opht) 1 drop OU HS [facility] Last Admin: 09/17/17 21:56 Dose: 1 drop Metformin HCl (Glucophage) 1,000 mg PO BID [facility] Last Admin: 09/18/17 08:18 Dose: 1,000 mg Metoprolol Succinate (Toprol Xl) 25 mg PO DAILY [facility] Last Admin: 09/18/17 08:21 Dose: 25 mg Ondansetron HCl (Zofran Inj) 4 mg IVP Q6 PRN PRN Reason: Nausea/Vomiting Timolol Maleate (Timoptic 0.5% Ophth Soln) 1 drop OU DAILY [facility] Last Admin: 09/18/17 08:23 Dose: 1 drop Venlafaxine HCl (Effexor Xr) 37.5 mg PO DAILY [facility] Last Admin: 09/18/17 08:22 Dose: 37.5 mg - Labs Labs: 09/18/17 05:30 09/18/17 05:30 PT 14.5 Seconds (9.8-13.1) H 09/18/17 05:30 INR 1.3 (0.9-1.2) H 09/18/17 05:30 APTT 33.7 Seconds (25.6-37.1) 09/18/17 05:30 - Constitutional Appears: No Acute Distress - Head Exam Head Exam: NORMOCEPHALIC - Eye Exam Eye Exam: EOMI - ENT Exam ENT Exam: Mucous Membranes Moist - Neck Exam Neck Exam: Full ROM - Respiratory Exam Respiratory Exam: NORMAL BREATHING PATTERN - Cardiovascular Exam Cardiovascular Exam: REGULAR RHYTHM, +S1, +S2 - GI/Abdominal Exam GI & Abdominal Exam: Soft, Normal Bowel Sounds. absent: Tenderness - Extremities Exam Extremities Exam: Joint Swelling (significant left knee swelling and tenderness) Additional comments: right wrist in splint and serafin bandage - Neurological Exam Neurological Exam: Alert, Awake, CN II-XII Intact, Oriented x3 - Psychiatric Exam Psychiatric exam: Normal Affect, Normal Mood - Skin Skin Exam: Dry, Pallor, Warm Assessment and Plan - Assessment and Plan (Free Text) Assessment: 82 yr old F admitted for intolerance to PO diet, gait imbalance and difficulties with minimal ADL's s/p mechanical fall resulting in left patella fracture and right wrist sprain. Patient has acute on chronic ANALI likely due to acute blood loss from mechanical fall. -telemetry -continue home medications -Orthopedic consult appreciated: will follow recommendations -Cardiology consult appreciated: will follow recommendations, chronic A-fib- rate controlled; hold xarelto and ASA for now due to anemia -advance diet as tolerated, Zofran PRN -Podiatry consult: chronic RLE ulcer; will follow recommendations -wound care -IVF -f/u next day CBC, anemia profile, stool for occult blood; will consider blood transfusion following pending CBC -f/u repeat right wrist xray and left knee xray
--- NOTE | 2017-09-18 15:55 | RAD ---
PROCEDURE: Left Knee Radiographs. HISTORY: Pain. COMPARISON: None. FINDINGS: BONES: There is a nondisplaced patellar fracture. There is no other fracture identified. JOINTS: Mild medial and lateral compartment osteoarthritis. JOINT EFFUSION: Probable small joint effusion/ hemarthrosis. OTHER FINDINGS: None. IMPRESSION: Nondisplaced patellar fracture
--- NOTE | 2017-09-18 15:59 | RAD ---
PROCEDURE: Right Wrist Radiographs. HISTORY: s/p fall , pain COMPARISON: None. FINDINGS: BONES: No definite fracture. Evaluation of the thumb is grossly limited by overlying fiberglass splint material, however. JOINTS: Osteoarthritis of CMC 1 and of the articulation between the scaphoid and trapezium/trapezoid. SOFT TISSUES: Normal. OTHER FINDINGS: None. IMPRESSION: Limited examination. No definite fracture. Osteoarthritis as described.
[2017-09-18] MEDS: Latanoprost 0.005% Opht SOUTION OU SCH (21:01)
[2017-09-18] MEDS: Docusate-Senna 50 mg-8.6 mg Tab PO SCH (22:29)
[2017-09-19 06:32] LABS: HEMOGLOBIN 7.5 g/dL (12.0-16.0); MEAN CELL VOLUME 81.4 fl (81.0-99.0); MEAN CORPUSCULAR HEMOGLOBIN 26.7 pg (27.0-31.0); MEAN CORPUSCULAR HGB CONC 32.8 g/dL (33.0-37.0); RBC 2.83 Mil/uL (3.80-5.20); RED CELL DISTRIBUTION WIDTH 15.1 % (11.5-14.5); WHITE BLOOD COUNT 5.1 K/uL (4.8-10.8)
[2017-09-19] MEDS: diltiaZEM 240 mg/24 Hours CD Cap PO SCH (08:26)
[2017-09-19] MEDS: Venlafaxine 37.5 mg ER Cap PO SCH (08:30)
[2017-09-19] MEDS: Metoprolol Succinate 25 mg XL Tab PO SCH (08:31)
[2017-09-19] MEDS: Santyl Collagenase OINTMENT TOP SCH (08:32)
[2017-09-19] MEDS: GlipiZIDE 2.5 mg SR Tab PO SCH (08:32)
--- NOTE | 2017-09-19 10:44 | CP.PCM.PN ---
Subjective - Date & Time of Evaluation Date of Evaluation: 09/19/17 Time of Evaluation: 10:30 - Subjective Subjective: NO CHEST PAIN, SOB OR PALPITATIONS APPETITE INCREASING SLIGHTLY Objective - Vital Signs/Intake and Output Vital Signs (last 24 hours): Temp Pulse Resp BP Pulse Ox 97.6 F 72 20 168/88 H 99 09/19/17 08:29 09/19/17 08:31 09/19/17 08:29 09/19/17 08:31 09/19/17 08:29 - Medications Medications: Current Medications Acetaminophen (Tylenol 325mg Tab) 650 mg PO Q6 PRN PRN Reason: Pain, moderate (4-7) Atorvastatin Calcium (Lipitor) 40 mg PO HS [facility] Last Admin: 09/18/17 21:01 Dose: 40 mg Collagenase (Santyl) 1 applic TOP DAILY [facility] Last Admin: 09/19/17 08:32 Dose: 1 applic Diltiazem HCl (Cardizem Cd) 240 mg PO DAILY [facility] Last Admin: 09/19/17 08:26 Dose: 240 mg Ferrous Sulfate (Feosol) 325 mg PO DAILY [facility] Last Admin: 09/19/17 08:31 Dose: 325 mg Glipizide (Glucotrol Xl) 2.5 mg PO DAILYWM [facility] Last Admin: 09/19/17 08:32 Dose: 2.5 mg Isosorbide Mononitrate (Imdur) 60 mg PO DAILY [facility] Last Admin: 09/19/17 08:26 Dose: 60 mg Latanoprost (Xalatan Opht) 1 drop OU [facility] Last Admin: 09/18/17 21:01 Dose: 1 drop Metformin HCl (Glucophage) 1,000 mg PO BID [facility] Last Admin: 09/19/17 08:31 Dose: 1,000 mg Metoprolol Succinate (Toprol Xl) 25 mg PO DAILY [facility] Last Admin: 09/19/17 08:31 Dose: 25 mg Ondansetron HCl (Zofran Inj) 4 mg IVP Q6 PRN PRN Reason: Nausea/Vomiting Senna/Docusate Sodium (Senokot S 50 Mg-8.6 Mg) 2 tab PO HS [facility] Last Admin: 09/18/17 22:29 Dose: Not Given Timolol Maleate (Timoptic 0.5% Ophth Soln) 1 drop OU DAILY [facility] Last Admin: 09/19/17 08:26 Dose: 1 drop Venlafaxine HCl (Effexor Xr) 37.5 mg PO DAILY [facility] Last Admin: 09/19/17 08:30 Dose: 37.5 mg - Labs Labs: 09/19/17 04:28 09/18/17 05:30 PT 14.5 Seconds (9.8-13.1) H 09/18/17 05:30 INR 1.3 (0.9-1.2) H 09/18/17 05:30 APTT 33.7 Seconds (25.6-37.1) 09/18/17 05:30 - Respiratory Exam Respiratory Exam: Clear to Ausculation Bilateral - Cardiovascular Exam Cardiovascular Exam: Irregular Rhythm, +S1, +S2 - Additional Findings Additional findings: 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
--- NOTE | 2017-09-19 13:04 | CP.PCM.PN ---
Subjective - Date & Time of Evaluation Date of Evaluation: 09/19/17 Time of Evaluation: 08:35 - Subjective Subjective: Patient seen and examined at bedside with attending-Dr. Barahona. Awaker, alert, tolerating PO diet. Denies chest pain, SOB, nausea or vomiting. Patient is aware her hemoglobin is low and agrees to a blood transfusion of 2 units. Objective - Vital Signs/Intake and Output Vital Signs (last 24 hours): Temp Pulse Resp BP Pulse Ox 98.2 F 58 L 20 148/66 98 09/19/17 13:00 09/19/17 13:00 09/19/17 13:00 09/19/17 13:00 09/19/17 13:00 - Medications Medications: Current Medications Acetaminophen (Tylenol 325mg Tab) 650 mg PO Q6 PRN PRN Reason: Pain, moderate (4-7) Atorvastatin Calcium (Lipitor) 40 mg PO HS [facility] Last Admin: 09/18/17 21:01 Dose: 40 mg Collagenase (Santyl) 1 applic TOP DAILY [facility] Last Admin: 09/19/17 08:32 Dose: 1 applic Diltiazem HCl (Cardizem Cd) 240 mg PO DAILY [facility] Last Admin: 09/19/17 08:26 Dose: 240 mg Ferrous Sulfate (Feosol) 325 mg PO DAILY [facility] Last Admin: 09/19/17 08:31 Dose: 325 mg Glipizide (Glucotrol Xl) 2.5 mg PO DAILYWM [facility] Last Admin: 09/19/17 08:32 Dose: 2.5 mg Isosorbide Mononitrate (Imdur) 60 mg PO DAILY [facility] Last Admin: 09/19/17 08:26 Dose: 60 mg Latanoprost (Xalatan Opht) 1 drop OU HS [facility] Last Admin: 09/18/17 21:01 Dose: 1 drop Metformin HCl (Glucophage) 1,000 mg PO BID [facility] Last Admin: 09/19/17 08:31 Dose: 1,000 mg Metoprolol Succinate (Toprol Xl) 25 mg PO DAILY [facility] Last Admin: 09/19/17 08:31 Dose: 25 mg Ondansetron HCl (Zofran Inj) 4 mg IVP Q6 PRN PRN Reason: Nausea/Vomiting Senna/Docusate Sodium (Senokot S 50 Mg-8.6 Mg) 2 tab PO [facility] Last Admin: 09/18/17 22:29 Dose: Not Given Timolol Maleate (Timoptic 0.5% Ophth Soln) 1 drop OU DAILY [facility] Last Admin: 09/19/17 08:26 Dose: 1 drop Venlafaxine HCl (Effexor Xr) 37.5 mg PO DAILY [facility] Last Admin: 09/19/17 08:30 Dose: 37.5 mg - Labs Labs: 09/19/17 04:28 09/18/17 05:30 PT 14.5 Seconds (9.8-13.1) H 09/18/17 05:30 INR 1.3 (0.9-1.2) H 09/18/17 05:30 APTT 33.7 Seconds (25.6-37.1) 09/18/17 05:30 - Constitutional Appears: No Acute Distress - Head Exam Head Exam: NORMOCEPHALIC - Eye Exam Eye Exam: EOMI - ENT Exam ENT Exam: Mucous Membranes Moist - Neck Exam Neck Exam: Full ROM - Respiratory Exam Respiratory Exam: NORMAL BREATHING PATTERN - Cardiovascular Exam Cardiovascular Exam: REGULAR RHYTHM, +S1, +S2 - GI/Abdominal Exam GI & Abdominal Exam: Soft, Normal Bowel Sounds - Extremities Exam Extremities Exam: Joint Swelling (significant left knee swelling and tenderness) Additional comments: right wrist in splint and serafin bandage - Neurological Exam Neurological Exam: Alert, Awake, CN II-XII Intact, Oriented x3 - Psychiatric Exam Psychiatric exam: Normal Affect, Normal Mood - Skin Skin Exam: Dry, Pallor, Warm Assessment and Plan - Assessment and Plan (Free Text) Assessment: 82 yr old F admitted for intolerance to PO diet, gait imbalance and difficulties with minimal ADL's s/p mechanical fall resulting in left patella fracture and right wrist sprain. Patient has acute on chronic ANALI likely due to acute blood loss from mechanical fall and small frame with BMI 19.4 kg/m2. -continue home medications -Orthopedic consult appreciated: will follow recommendations -Cardiology consult appreciated: will follow recommendations, chronic A-fib- rate controlled; hold xarelto and ASA for now due to anemia -heart healthy diet -Podiatry consult: chronic RLE ulcer; will follow recommendations -wound care -f/u stool for occult blood -transfuse 2 units pRBC's -right wrist xray: no fracture and left knee xray: nondisplaced fracture with probable small joint effusion/hemarthrosis
--- NOTE | 2017-09-19 17:23 | CP.PCM.PN ---
Subjective - Date & Time of Evaluation Date of Evaluation: 09/19/17 Time of Evaluation: 17:23 - Subjective Subjective: Podiatry Progress Note- Dr. Donnelly 82 y.o f with PMH of CAD, chronic atrial fibrillation, HTN, hyperlipidemia, DM2 consulted for chronic right leg ulceration. Patient is seen at bedside sitting comfortably in bed, in NAD, and AA0x3. She denies n/v/sob/cp/chills or f. No new pedal complaints at this time. Objective - Vital Signs/Intake and Output Vital Signs (last 24 hours): Temp Pulse Resp BP Pulse Ox 98.5 F 57 L 16 126/78 99 09/19/17 16:18 09/19/17 16:18 09/19/17 16:18 09/19/17 16:18 09/19/17 16:18 - Medications Medications: Current Medications Acetaminophen (Tylenol 325mg Tab) 650 mg PO Q6 PRN PRN Reason: Pain, moderate (4-7) Atorvastatin Calcium (Lipitor) 40 mg PO HS [facility] Last Admin: 09/18/17 21:01 Dose: 40 mg Collagenase (Santyl) 1 applic TOP DAILY [facility] Last Admin: 09/19/17 08:32 Dose: 1 applic Diltiazem HCl (Cardizem Cd) 240 mg PO DAILY [facility] Last Admin: 09/19/17 08:26 Dose: 240 mg Ferrous Sulfate (Feosol) 325 mg PO DAILY [facility] Last Admin: 09/19/17 08:31 Dose: 325 mg Glipizide (Glucotrol Xl) 2.5 mg PO DAILYWM [facility] Last Admin: 09/19/17 08:32 Dose: 2.5 mg Isosorbide Mononitrate (Imdur) 60 mg PO DAILY [facility] Last Admin: 09/19/17 08:26 Dose: 60 mg Latanoprost (Xalatan Opht) 1 drop OU HS [facility] Last Admin: 09/18/17 21:01 Dose: 1 drop Metformin HCl (Glucophage) 1,000 mg PO BID [facility] Last Admin: 09/19/17 16:55 Dose: 1,000 mg Metoprolol Succinate (Toprol Xl) 25 mg PO DAILY [facility] Last Admin: 09/19/17 08:31 Dose: 25 mg Ondansetron HCl (Zofran Inj) 4 mg IVP Q6 PRN PRN Reason: Nausea/Vomiting Senna/Docusate Sodium (Senokot S 50 Mg-8.6 Mg) 2 tab PO HS [facility] Last Admin: 09/18/17 22:29 Dose: Not Given Timolol Maleate (Timoptic 0.5% Ophth Soln) 1 drop OU DAILY [facility] Last Admin: 09/19/17 08:26 Dose: 1 drop Venlafaxine HCl (Effexor Xr) 37.5 mg PO DAILY [facility] Last Admin: 09/19/17 08:30 Dose: 37.5 mg - Labs Labs: 09/19/17 04:28 09/18/17 05:30 PT 14.5 Seconds (9.8-13.1) H 09/18/17 05:30 INR 1.3 (0.9-1.2) H 09/18/17 05:30 APTT 33.7 Seconds (25.6-37.1) 09/18/17 05:30 - Constitutional Appears: Well, Non-toxic, No Acute Distress - Extremities Exam Extremities Exam: absent: Calf Tenderness Additional comments: LE Focused Exam: Vasc: DP and PT weakly palpable, CFT < 3 seconds, temperature is cool to cool, no edema noted Ortho: no pain with palpation to the ulceration, MM is 5/5 in all four compartments Neuro: gross sensation intact, protective sensation diminished Derm: partial thickness ulceration noted to the posterior lateral aspect of lower leg measuring approximately 2.5 x 3 x .1, no probe to bone, no erythema, no drainage, no purulence, no undermining, or tunneling, no odor, no clinical signs of infection. Wound base is 80% fibrotic centrally with 20% granular base in peripheral. - Psychiatric Exam Psychiatric exam: Normal Affect, Normal Mood Assessment and Plan - Assessment and Plan (Free Text) Assessment: 82 y.o f with PMH of CAD, chronic atrial fibrillation, HTN, hyperlipidemia, DM2 with chronic right leg ulceration secondary to DM- stable, no clinical signs of infection Plan: Patient seen and evaluated Discussed plan in detail with attending Dr Donnelly Labs, vitals, charts reviewed Nursing will provide wound care today with annel and heber. Stable per podiatry No surgical intervention Podiatry and Dr. Donnelly will continue to follow while in house Will f/u with Dr. Nunez upon discharge
--- NOTE | 2017-09-19 20:01 | CP.PCM.CON ---
History of Present Illness - History of Present Illness History of Present Illness: Consult note for Dr. Loomis 82 year female patient with PMHx of CAD, chronic atrial fibrillation, HTN, hyperlipidemia, DM2 was seen and evaluated at bedside for non-displaced patellar fracture. Patient states that she was at home and caught her foot on the rolled up carpet and fell. Patient reports that after she fell she felt a little pain in her left knee but denies of having pain anymore. Patient denies of having any new F/N/V/C/SOB/CP/headache. Denies of having any new complains at this time. Review of Systems - Constitutional Constitutional: As Per HPI Past Patient History - Past Medical History & Family History Past Medical History?: Yes - Past Social History Smoking Status: Never Smoked - CARDIAC Hx Hypercholesterolemia: Yes Hx Hypertension: Yes - ENDOCRINE/METABOLIC Hx Diabetes Mellitus Type 2: Yes - HEMATOLOGICAL/ONCOLOGICAL Hx Anemia: Yes - MUSCULOSKELETAL/RHEUMATOLOGICAL Hx Osteoporosis: Yes - PSYCHIATRIC Hx Substance Use: No - ANESTHESIA Hx Anesthesia: No Meds Allergies/Adverse Reactions: Allergies Allergy/AdvReac Type Severity Reaction Status Date / Time tuberculin,PPD,multi-puncture Allergy ANAPHYLAXIS Verified 09/17/17 12:48 levetiracetam [From [facility]] AdvReac DIZZINESS Verified 09/17/17 12:49 - Medications Medications: Current Medications Acetaminophen (Tylenol 325mg Tab) 650 mg PO Q6 PRN PRN Reason: Pain, moderate (4-7) Atorvastatin Calcium (Lipitor) 40 mg PO HS [facility] Last Admin: 09/18/17 21:01 Dose: 40 mg Collagenase (Santyl) 1 applic TOP DAILY [facility] Last Admin: 09/19/17 08:32 Dose: 1 applic Diltiazem HCl (Cardizem Cd) 240 mg PO DAILY [facility] Last Admin: 09/19/17 08:26 Dose: 240 mg Ferrous Sulfate (Feosol) 325 mg PO DAILY [facility] Last Admin: 09/19/17 08:31 Dose: 325 mg Glipizide (Glucotrol Xl) 2.5 mg PO DAILYWM [facility] Last Admin: 09/19/17 08:32 Dose: 2.5 mg Isosorbide Mononitrate (Imdur) 60 mg PO DAILY [facility] Last Admin: 09/19/17 08:26 Dose: 60 mg Latanoprost (Xalatan Opht) 1 drop OU HS [facility] Last Admin: 09/18/17 21:01 Dose: 1 drop Metformin HCl (Glucophage) 1,000 mg PO BID [facility] Last Admin: 09/19/17 16:55 Dose: 1,000 mg Metoprolol Succinate (Toprol Xl) 25 mg PO DAILY [facility] Last Admin: 09/19/17 08:31 Dose: 25 mg Ondansetron HCl (Zofran Inj) 4 mg IVP Q6 PRN PRN Reason: Nausea/Vomiting Senna/Docusate Sodium (Senokot S 50 Mg-8.6 Mg) 2 tab PO HS [facility] Last Admin: 09/18/17 22:29 Dose: Not Given Timolol Maleate (Timoptic 0.5% Ophth Soln) 1 drop OU DAILY [facility] Last Admin: 09/19/17 08:26 Dose: 1 drop Venlafaxine HCl (Effexor Xr) 37.5 mg PO DAILY [facility] Last Admin: 09/19/17 08:30 Dose: 37.5 mg Physical Exam - Constitutional Appears: Well, Non-toxic, No Acute Distress - Extremities Exam Extremities exam: Positive for: normal capillary refill, normal inspection, pedal pulses present. Negative for: calf tenderness, pedal edema Additional comments: Knee immobalizer intact to left LE - Neurological Exam Neurological exam: Alert, Oriented x3 - Psychiatric Exam Psychiatric exam: Normal Affect, Normal Mood Results - Vital Signs Recent Vital Signs: Last Vital Signs Temp 98.3 F 09/19/17 19:17 Pulse 75 09/19/17 19:17 Resp 20 09/19/17 19:17 BP 169/93 H 09/19/17 19:17 Pulse Ox 98 09/19/17 19:17 - Labs Result Diagrams: 09/19/17 04:28 09/18/17 05:30 Labs: Laboratory Results - last 24 hr 09/18/17 09/18/17 09/18/17 10:49 15:41 22:10 WBC RBC Hgb Hct MCV MCH MCHC RDW Plt Count POC Glucose (mg/dL) 159 H 103 Blood Type A POSITIVE Antibody Screen Negative Crossmatch See Detail BBK History Checked No verified bt 09/19/17 09/19/17 09/19/17 04:28 05:41 11:12 WBC 5.1 RBC 2.83 L Hgb 7.5 L Hct 23.0 L MCV 81.4 MCH 26.7 L MCHC 32.8 L RDW 15.1 H Plt Count 257 POC Glucose (mg/dL) 95 172 H Blood Type Antibody Screen Crossmatch BBK History Checked 09/19/17 15:47 WBC RBC Hgb Hct MCV MCH MCHC RDW Plt Count POC Glucose (mg/dL) 158 H Blood Type Antibody Screen Crossmatch BBK History Checked Assessment & Plan - Assessment and Plan (Free Text) Assessment: 82 year female patient with PMHx of CAD, chronic atrial fibrillation, HTN, hyperlipidemia, DM2 was evaluated for non-displaced patellar fracture. Plan: Patient seen and evaluated at bedside Discussed patient in details with attending Dr. Loomis X-ray of the L knee evaluated - non displaced patellar fracture noted Patient educated to WBAT Remain in knee immobilizer Follow up with Dr. Loomis in his office once discharge from the hospital Thank you for the Ortho consult - Date & Time Date: 09/19/17 Time: 20:05
[2017-09-19] MEDS: Latanoprost 0.005% Opht SOUTION OU SCH (21:20)
[2017-09-19] MEDS: Docusate-Senna 50 mg-8.6 mg Tab PO SCH (22:00)
[2017-09-20 07:42] LABS: HEMOGLOBIN 10.8 g/dL (12.0-16.0); MEAN CELL VOLUME 82.1 fl (81.0-99.0); MEAN CORPUSCULAR HEMOGLOBIN 26.9 pg (27.0-31.0); MEAN CORPUSCULAR HGB CONC 32.7 g/dL (33.0-37.0); RBC 4.04 Mil/uL (3.80-5.20); RED CELL DISTRIBUTION WIDTH 14.5 % (11.5-14.5); WHITE BLOOD COUNT 6.8 K/uL (4.8-10.8)
[2017-09-20] MEDS: diltiaZEM 240 mg/24 Hours CD Cap PO SCH (08:40)
[2017-09-20] MEDS: GlipiZIDE 2.5 mg SR Tab PO SCH (08:41)
[2017-09-20] MEDS: Venlafaxine 37.5 mg ER Cap PO SCH (08:41)
[2017-09-20] MEDS: Metoprolol Succinate 25 mg XL Tab PO SCH (08:42)
[2017-09-20] MEDS: Santyl Collagenase OINTMENT TOP SCH (08:42)
--- NOTE | 2017-09-20 08:51 | CP.PCM.PN ---
Subjective - Date & Time of Evaluation Date of Evaluation: 09/20/17 Time of Evaluation: 08:49 - Subjective Subjective: Podiatry Progress Note- Dr. Donnelly 82 y/o female patient with PMH of CAD, chronic atrial fibrillation, HTN, hyperlipidemia, DM2 seen and evaluated at bedside with attending Dr. Donnelly for chronic right leg ulceration. Patient is seen at bedside sitting comfortably in bed, in NAD, and AA0x3. She denies n/v/sob/cp/chills or f. No new pedal complaints at this time. Objective - Vital Signs/Intake and Output Vital Signs (last 24 hours): Temp Pulse Resp BP Pulse Ox 97.9 F 78 20 166/89 H 99 09/20/17 08:00 09/20/17 08:42 09/20/17 08:00 09/20/17 08:42 09/20/17 08:00 - Medications Medications: Current Medications Acetaminophen (Tylenol 325mg Tab) 650 mg PO Q6 PRN PRN Reason: Pain, moderate (4-7) Atorvastatin Calcium (Lipitor) 40 mg PO HS [facility] Last Admin: 09/19/17 21:19 Dose: 40 mg Collagenase (Santyl) 1 applic TOP DAILY [facility] Last Admin: 09/20/17 08:42 Dose: 1 applic Diltiazem HCl (Cardizem Cd) 240 mg PO DAILY [facility] Last Admin: 09/20/17 08:40 Dose: 240 mg Ferrous Sulfate (Feosol) 325 mg PO DAILY [facility] Last Admin: 09/20/17 08:40 Dose: 325 mg Glipizide (Glucotrol Xl) 2.5 mg PO DAILYWM [facility] Last Admin: 09/20/17 08:41 Dose: 2.5 mg Isosorbide Mononitrate (Imdur) 60 mg PO DAILY [facility] Last Admin: 09/20/17 08:41 Dose: 60 mg Latanoprost (Xalatan Opht) 1 drop OU HS [facility] Last Admin: 09/19/17 21:20 Dose: 1 drop Metformin HCl (Glucophage) 1,000 mg PO BID [facility] Last Admin: 09/20/17 08:41 Dose: 1,000 mg Metoprolol Succinate (Toprol Xl) 25 mg PO DAILY [facility] Last Admin: 09/20/17 08:42 Dose: 25 mg Ondansetron HCl (Zofran Inj) 4 mg IVP Q6 PRN PRN Reason: Nausea/Vomiting Senna/Docusate Sodium (Senokot S 50 Mg-8.6 Mg) 2 tab PO [facility] Last Admin: 09/19/17 22:00 Dose: Not Given Timolol Maleate (Timoptic 0.5% Ophth Soln) 1 drop OU DAILY [facility] Last Admin: 09/20/17 08:42 Dose: 1 drop Venlafaxine HCl (Effexor Xr) 37.5 mg PO DAILY [facility] Last Admin: 09/20/17 08:41 Dose: 37.5 mg - Labs Labs: 09/20/17 06:05 09/18/17 05:30 PT 14.5 Seconds (9.8-13.1) H 09/18/17 05:30 INR 1.3 (0.9-1.2) H 09/18/17 05:30 APTT 33.7 Seconds (25.6-37.1) 09/18/17 05:30 - Constitutional Appears: Well, Non-toxic, No Acute Distress - Extremities Exam Additional comments: LE Focused Exam: Vasc: DP and PT weakly palpable, CFT < 3 seconds, temperature is cool to cool, no edema noted Derm: partial thickness ulceration noted to the posterior lateral aspect of lower leg measuring approximately 2.5 x 3 x .1, no probe to bone, no erythema, no drainage, no purulence, no undermining, or tunneling, no odor, no clinical signs of infection. Wound base is 80% fibrotic centrally with 20% granular base in peripheral. Ortho: no pain with palpation to the ulceration, MM is 5/5 in all four compartments Neuro: gross sensation intact, protective sensation diminished - Neurological Exam Neurological Exam: Alert, Awake, Oriented x3 - Psychiatric Exam Psychiatric exam: Normal Affect, Normal Mood Assessment and Plan - Assessment and Plan (Free Text) Assessment: 82 y/o female with PMH of CAD, chronic atrial fibrillation, HTN, hyperlipidemia , DM2 with chronic right leg ulceration secondary to DM- stable, no clinical signs of infection Plan: Patient seen and evaluated with attending Dr. Donnelly Labs, vitals, charts reviewed - WBC @ 6.8 today, afebrile Dressing applied using Santyl, DSD Stable per podiatry No surgical intervention Podiatry will continue to follow while in house Will f/u with Dr. Nunez upon discharge
--- NOTE | 2017-09-20 10:28 | CP.PCM.PN ---
Subjective - Date & Time of Evaluation Date of Evaluation: 09/20/17 Time of Evaluation: 10:15 - Subjective Subjective: NO CHEST PAIN, PALPITATIONS OR SOB Objective - Vital Signs/Intake and Output Vital Signs (last 24 hours): Temp Pulse Resp BP Pulse Ox 97.9 F 78 20 166/89 H 99 09/20/17 08:00 09/20/17 08:42 09/20/17 08:00 09/20/17 08:42 09/20/17 08:00 - Medications Medications: Current Medications Acetaminophen (Tylenol 325mg Tab) 650 mg PO Q6 PRN PRN Reason: Pain, moderate (4-7) Atorvastatin Calcium (Lipitor) 40 mg PO HS [facility] Last Admin: 09/19/17 21:19 Dose: 40 mg Collagenase (Santyl) 1 applic TOP DAILY [facility] Last Admin: 09/20/17 08:42 Dose: 1 applic Diltiazem HCl (Cardizem Cd) 240 mg PO DAILY [facility] Last Admin: 09/20/17 08:40 Dose: 240 mg Ferrous Sulfate (Feosol) 325 mg PO DAILY [facility] Last Admin: 09/20/17 08:40 Dose: 325 mg Glipizide (Glucotrol Xl) 2.5 mg PO DAILYWM [facility] Last Admin: 09/20/17 08:41 Dose: 2.5 mg Isosorbide Mononitrate (Imdur) 60 mg PO DAILY [facility] Last Admin: 09/20/17 08:41 Dose: 60 mg Latanoprost (Xalatan Opht) 1 drop OU [facility] Last Admin: 09/19/17 21:20 Dose: 1 drop Metformin HCl (Glucophage) 1,000 mg PO BID [facility] Last Admin: 09/20/17 08:41 Dose: 1,000 mg Metoprolol Succinate (Toprol Xl) 25 mg PO DAILY [facility] Last Admin: 09/20/17 08:42 Dose: 25 mg Ondansetron HCl (Zofran Inj) 4 mg IVP Q6 PRN PRN Reason: Nausea/Vomiting Senna/Docusate Sodium (Senokot S 50 Mg-8.6 Mg) 2 tab PO HS [facility] Last Admin: 09/19/17 22:00 Dose: Not Given Timolol Maleate (Timoptic 0.5% Ophth Soln) 1 drop OU DAILY [facility] Last Admin: 09/20/17 08:42 Dose: 1 drop Venlafaxine HCl (Effexor Xr) 37.5 mg PO DAILY [facility] Last Admin: 09/20/17 08:41 Dose: 37.5 mg - Labs Labs: 09/20/17 06:05 09/18/17 05:30 PT 14.5 Seconds (9.8-13.1) H 09/18/17 05:30 INR 1.3 (0.9-1.2) H 09/18/17 05:30 APTT 33.7 Seconds (25.6-37.1) 09/18/17 05:30 - Respiratory Exam Respiratory Exam: Clear to Ausculation Bilateral - Cardiovascular Exam Cardiovascular Exam: Irregular Rhythm, +S1, +S2 - Additional Findings Additional findings: BLACK TOP RAKER ATRIAL FIBRILLATION WITH MVR H/H 10.8/33.2 Assessment and Plan - Assessment and Plan (Free Text) Assessment: FALL WITH MULTIPLE TRAUMA CAD CHRONIC ATRIAL FIBRILLATION HYPERTENSION HYPERLIPIDEMIA Plan: CONTINUE DILTIAZEM, METOPROLOL, NITRATES AND ATORVASTATIN TO RESUME ASA AND XARELTO ONCE WE ARE SURE H/H REMAIN STABLE THE PATIENT CAN BE DISCHARGED TO REHAB FROM THE [facility]
--- NOTE | 2017-09-20 18:24 | CP.PCM.PN ---
Subjective - Date & Time of Evaluation Date of Evaluation: 09/20/17 Time of Evaluation: 10:00 - Subjective Subjective: Patient feels a lot better today. Noted Hgb to be above 10 Has no chest pain or SOB Has minimal pain on the left knee. Able to ambulate and did some stairs yesterday but balance is not stable yet. Objective - Vital Signs/Intake and Output Vital Signs (last 24 hours): Temp Pulse Resp BP Pulse Ox 98.1 F 54 L 17 147/74 99 09/20/17 16:15 09/20/17 16:15 09/20/17 16:15 09/20/17 16:15 09/20/17 16:15 - Medications Medications: Current Medications Acetaminophen (Tylenol 325mg Tab) 650 mg PO Q6 PRN PRN Reason: Pain, moderate (4-7) Atorvastatin Calcium (Lipitor) 40 mg PO HS [facility] Last Admin: 09/19/17 21:19 Dose: 40 mg Collagenase (Santyl) 1 applic TOP DAILY [facility] Last Admin: 09/20/17 08:42 Dose: 1 applic Diltiazem HCl (Cardizem Cd) 240 mg PO DAILY [facility] Last Admin: 09/20/17 08:40 Dose: 240 mg Ferrous Sulfate (Feosol) 325 mg PO DAILY [facility] Last Admin: 09/20/17 08:40 Dose: 325 mg Glipizide (Glucotrol Xl) 2.5 mg PO DAILYWM [facility] Last Admin: 09/20/17 08:41 Dose: 2.5 mg Isosorbide Mononitrate (Imdur) 60 mg PO DAILY [facility] Last Admin: 09/20/17 08:41 Dose: 60 mg Latanoprost (Xalatan Opht) 1 drop OU HS [facility] Last Admin: 09/19/17 21:20 Dose: 1 drop Metformin HCl (Glucophage) 1,000 mg PO BID [facility] Last Admin: 09/20/17 16:14 Dose: 1,000 mg Metoprolol Succinate (Toprol Xl) 25 mg PO DAILY [facility] Last Admin: 09/20/17 08:42 Dose: 25 mg Ondansetron HCl (Zofran Inj) 4 mg IVP Q6 PRN PRN Reason: Nausea/Vomiting Senna/Docusate Sodium (Senokot S 50 Mg-8.6 Mg) 2 tab PO [facility] Last Admin: 09/19/17 22:00 Dose: Not Given Timolol Maleate (Timoptic 0.5% Ophth Soln) 1 drop OU DAILY [facility] Last Admin: 09/20/17 08:42 Dose: 1 drop Venlafaxine HCl (Effexor Xr) 37.5 mg PO DAILY [facility] Last Admin: 09/20/17 08:41 Dose: 37.5 mg - Labs Labs: 09/20/17 06:05 09/18/17 05:30 PT 14.5 Seconds (9.8-13.1) H 09/18/17 05:30 INR 1.3 (0.9-1.2) H 09/18/17 05:30 APTT 33.7 Seconds (25.6-37.1) 09/18/17 05:30 - Head Exam Head Exam: NORMAL INSPECTION - Eye Exam Eye Exam: Normal appearance - ENT Exam ENT Exam: Mucous Membranes Moist - Respiratory Exam Respiratory Exam: NORMAL BREATHING PATTERN - Cardiovascular Exam Cardiovascular Exam: REGULAR RHYTHM - GI/Abdominal Exam GI & Abdominal Exam: Normal Bowel Sounds - Neurological Exam Neurological Exam: Awake, Oriented x3 Assessment and Plan (1) Gait abnormality Status: Acute (2) Ankle injury Status: Acute (3) Patellar fracture Status: Acute - Assessment and Plan (Free Text) Plan: Cont meds Cont PT eval for TCU cont pain meds
[2017-09-20] MEDS: Latanoprost 0.005% Opht SOUTION OU SCH (21:10)
[2017-09-20] MEDS: Docusate-Senna 50 mg-8.6 mg Tab PO SCH (21:11)
[2017-09-21] MEDS: diltiaZEM 240 mg/24 Hours CD Cap PO SCH (08:48)
[2017-09-21] MEDS: Venlafaxine 37.5 mg ER Cap PO SCH (08:48)
[2017-09-21] MEDS: GlipiZIDE 2.5 mg SR Tab PO SCH (08:49)
[2017-09-21] MEDS: Metoprolol Succinate 25 mg XL Tab PO SCH (08:51)
--- NOTE | 2017-09-21 10:17 | CP.PCM.PN ---
Subjective - Date & Time of Evaluation Date of Evaluation: 09/21/17 Time of Evaluation: 10:15 - Subjective Subjective: Podiatry Progress Note- Dr. Donnelly 82 y/o female patient with PMH of CAD, chronic atrial fibrillation, HTN, hyperlipidemia, DM2 seen and evaluated at bedside for chronic right leg ulceration. Patient is seen at bedside sitting comfortably in bed, in NAD, and AA0x3. She denies n/v/sob/cp/chills or f. No new pedal complaints at this time. Objective - Vital Signs/Intake and Output Vital Signs (last 24 hours): Temp Pulse Resp BP Pulse Ox 97.5 F L 75 20 156/72 H 98 09/21/17 08:12 09/21/17 08:12 09/21/17 08:12 09/21/17 08:48 09/21/17 08:12 - Medications Medications: Current Medications Acetaminophen (Tylenol 325mg Tab) 650 mg PO Q6 PRN PRN Reason: Pain, moderate (4-7) Atorvastatin Calcium (Lipitor) 40 mg PO HS [facility] Last Admin: 09/20/17 21:11 Dose: 40 mg Collagenase (Santyl) 1 applic TOP DAILY [facility] Last Admin: 09/20/17 08:42 Dose: 1 applic Diltiazem HCl (Cardizem Cd) 240 mg PO DAILY [facility] Last Admin: 09/21/17 08:48 Dose: 240 mg Ferrous Sulfate (Feosol) 325 mg PO DAILY [facility] Last Admin: 09/21/17 08:48 Dose: 325 mg Glipizide (Glucotrol Xl) 2.5 mg PO DAILYWM [facility] Last Admin: 09/21/17 08:49 Dose: 2.5 mg Isosorbide Mononitrate (Imdur) 60 mg PO DAILY [facility] Last Admin: 09/21/17 08:50 Dose: 60 mg Latanoprost (Xalatan Opht) 1 drop OU HS [facility] Last Admin: 09/20/17 21:10 Dose: 1 drop Metformin HCl (Glucophage) 1,000 mg PO BID [facility] Last Admin: 09/21/17 08:49 Dose: 1,000 mg Metoprolol Succinate (Toprol Xl) 25 mg PO DAILY [facility] Last Admin: 09/21/17 08:51 Dose: 25 mg Ondansetron HCl (Zofran Inj) 4 mg IVP Q6 PRN PRN Reason: Nausea/Vomiting Senna/Docusate Sodium (Senokot S 50 Mg-8.6 Mg) 2 tab PO HS [facility] Last Admin: 09/20/17 21:11 Dose: 2 tab Timolol Maleate (Timoptic 0.5% Ophth Soln) 1 drop OU DAILY [facility] Last Admin: 09/21/17 08:50 Dose: 1 drop Venlafaxine HCl (Effexor Xr) 37.5 mg PO DAILY [facility] Last Admin: 09/21/17 08:48 Dose: 37.5 mg - Labs Labs: 09/20/17 06:05 09/18/17 05:30 PT 14.5 Seconds (9.8-13.1) H 09/18/17 05:30 INR 1.3 (0.9-1.2) H 09/18/17 05:30 APTT 33.7 Seconds (25.6-37.1) 09/18/17 05:30 - Constitutional Appears: Well, Non-toxic, No Acute Distress - Extremities Exam Additional comments: LE Focused Exam: Vasc: DP and PT weakly palpable, CFT < 3 seconds, temperature is cool to cool, no edema noted Derm: partial thickness ulceration noted to the posterior lateral aspect of lower leg measuring approximately 2.5 x 3 x .1, no probe to bone, no erythema, no drainage, no purulence, no undermining, or tunneling, no odor, no clinical signs of infection. Wound base is 80% fibrotic centrally with 20% granular base in peripheral. Ortho: no pain with palpation to the ulceration, MM is 5/5 in all four compartments Neuro: gross sensation intact, protective sensation diminished - Neurological Exam Neurological Exam: Alert, Awake, Oriented x3 - Psychiatric Exam Psychiatric exam: Normal Affect, Normal Mood Assessment and Plan - Assessment and Plan (Free Text) Assessment: 82 y/o female with PMH of CAD, chronic atrial fibrillation, HTN, hyperlipidemia , DM2 with chronic right leg ulceration secondary to DM- stable, no clinical signs of infection Plan: Patient seen and evaluated Labs, vitals, charts reviewed - WBC @ 6.8 yesterday, afebrile Dressing applied using Santyl, DSD Stable per podiatry No surgical intervention Podiatry will continue to follow while in house Will f/u with Dr. Nunez upon discharge
--- NOTE | 2017-09-21 14:07 | CP.PCM.PN ---
Subjective - Date & Time of Evaluation Date of Evaluation: 09/21/17 Time of Evaluation: 14:05 - Subjective Subjective: Patient remains stable Review of Xray showed patellar fracture. Right wrist Xray showed no fracture. Did well with PT. Objective - Vital Signs/Intake and Output Vital Signs (last 24 hours): Temp Pulse Resp BP Pulse Ox 98.3 F 84 20 152/80 H 98 09/21/17 13:04 09/21/17 13:04 09/21/17 13:04 09/21/17 13:04 09/21/17 13:04 - Medications Medications: Current Medications Acetaminophen (Tylenol 325mg Tab) 650 mg PO Q6 PRN PRN Reason: Pain, moderate (4-7) Atorvastatin Calcium (Lipitor) 40 mg PO HS REPLACED BY [facility] Last Admin: 09/20/17 21:11 Dose: 40 mg Collagenase (Santyl) 1 applic TOP DAILY REPLACED BY [facility] Last Admin: 09/20/17 08:42 Dose: 1 applic Diltiazem HCl (Cardizem Cd) 240 mg PO DAILY REPLACED BY [facility] Last Admin: 09/21/17 08:48 Dose: 240 mg Ferrous Sulfate (Feosol) 325 mg PO DAILY [facility]PL[facility]ED BY [facility] Last Admin: 09/21/17 08:48 Dose: 325 mg Glipizide (Glucotrol Xl) 2.5 mg PO DAILYWM REPLACED BY [facility] Last Admin: 09/21/17 08:49 Dose: 2.5 mg Isosorbide Mononitrate (Imdur) 60 mg PO DAILY REPL[facility]ED BY [facility] Last Admin: 09/21/17 08:50 Dose: 60 mg Latanoprost (Xalatan Opht) 1 drop OU HS REPLACED BY [facility] Last Admin: 09/20/17 21:10 Dose: 1 drop Metformin HCl (Glucophage) 1,000 mg PO BID REPLACED BY [facility] Last Admin: 09/21/17 08:49 Dose: 1,000 mg Metoprolol Succinate (Toprol Xl) 25 mg PO DAILY REPLACED BY [facility] Last Admin: 09/21/17 08:51 Dose: 25 mg Ondansetron HCl (Zofran Inj) 4 mg IVP Q6 PRN PRN Reason: Nausea/Vomiting Senna/Docusate Sodium (Senokot S 50 Mg-8.6 Mg) 2 tab PO HS REPLACED BY [facility] Last Admin: 09/20/17 21:11 Dose: 2 tab Timolol Maleate (Timoptic 0.5% Ophth Soln) 1 drop OU DAILY [facility] Last Admin: 09/21/17 08:50 Dose: 1 drop Venlafaxine HCl (Effexor Xr) 37.5 mg PO DAILY [facility] Last Admin: 09/21/17 08:48 Dose: 37.5 mg - Labs Labs: 09/20/17 06:05 09/18/17 05:30 PT 14.5 Seconds (9.8-13.1) H 09/18/17 05:30 INR 1.3 (0.9-1.2) H 09/18/17 05:30 APTT 33.7 Seconds (25.6-37.1) 09/18/17 05:30 - Head Exam Head Exam: NORMAL INSPECTION - Eye Exam Eye Exam: Normal appearance - ENT Exam ENT Exam: Mucous Membranes Moist - Respiratory Exam Respiratory Exam: Clear to Ausculation Bilateral - Cardiovascular Exam Cardiovascular Exam: REGULAR RHYTHM - Neurological Exam Neurological Exam: Awake, Oriented x3 Assessment and Plan (1) Gait abnormality Status: Acute (2) Patellar fracture Status: Acute (3) Wrist sprain Status: Acute - Assessment and Plan (Free Text) Plan: Cot meds Cont tx Cont pT discussed with Dr Ramirez
[2017-09-21] MEDS: Santyl Collagenase OINTMENT TOP SCH (16:34)
[2017-09-21] MEDS: Docusate-Senna 50 mg-8.6 mg Tab PO SCH (21:42)
[2017-09-21] MEDS: Latanoprost 0.005% Opht SOUTION OU SCH (21:42)
--- NOTE | 2017-09-22 02:53 | CON ---
DATE: 09/21/2017 CHIEF COMPLAINT: Left knee patella fracture and right wrist sprain. HISTORY OF PRESENT ILLNESS: Patient is an 82-year-old female who had a mechanical fall on 09/13/2017, patient was taken to outside hospital where the x-rays shown a nondisplaced fracture of the left patella and a sprain of the right wrist. Patient was initially treated at [facility]; however, patient was discharged on 09/14/2017. Since the patient lives alone, while at home, she had difficulty with stairs and also overall malaise, nausea, vomiting. Patient currently is examined at bedside, comfortable. She is in a left knee mobilizer and right thumb spica splint. Denies any loss of consciousness, denies any shortness of breath, or pain in any of the extremity joint. PAST MEDICAL HISTORY: Chronic AFib that is rate controlled, type 2 diabetes, CAD status post stent placement. PAST SURGICAL HISTORY: Cardiac stents, tonsillectomy, right thumb trigger finger release. ALLERGIES: TO PPD AND LEVETIRACETAM. PHYSICAL EXAMINATION: EXTREMITIES: Examination of patient's left knee, the knee mobilizer was taken off. No swelling or ecchymosis. Patient is able to straight leg raise. Minimal tenderness to palpation of the fracture site. Neurovascularly intact distally. Limited range of motion secondary to pain. The ligament exam is limited secondary to pain. Examination of patient's right thumb, a thumb spica splint is in place. Sensation is intact. Patient is able to move rest of the digits. Neurovascularly intact distally. IMAGING STUDIES: X-ray of the patient's right wrist showing advanced basal joint osteoarthritis. No evident displaced fracture or dislocation. X-ray of the patient's left knee showing a minimally displaced left transverse patella fracture. ASSESSMENT: An 82-year-old female with left status post mechanical fall with a left nondisplaced patella fracture and right thumb sprain. TREATMENT: I had a detailed discussion with the patient and her daughter who was at bedside. I explained the nature of the injury and reviewed different treatment options. Due to nondisplaced nature of the patella, I am recommending taping verus knee mobilizer with the knee locked in extension. Patient has agreed to proceed with the restrictions of knee mobilizer with the knee in extension. Regarding the patient's right wrist, she would continue the use of thumb spica splint. Patient may be weightbearing as tolerated with the knee mobilizer. Once the patient is discharged, will follow up in my office with repeat x-rays for further treatment options. If this fracture displaces, we will recommend surgery. However, at this point , we will proceed with nonoperative management for both right wrist and left patella fracture. Eladia Loomis MD
[2017-09-22] MEDS: Metoprolol Succinate 25 mg XL Tab PO SCH (08:22)
[2017-09-22] MEDS: diltiaZEM 240 mg/24 Hours CD Cap PO SCH (08:23)
[2017-09-22] MEDS: Venlafaxine 37.5 mg ER Cap PO SCH (08:23)
[2017-09-22] MEDS: GlipiZIDE 2.5 mg SR Tab PO SCH (08:24)
[2017-09-22] MEDS: Santyl Collagenase OINTMENT TOP SCH (08:25)
--- NOTE | 2017-09-22 09:01 | CP.PCM.PN ---
Subjective - Date & Time of Evaluation Date of Evaluation: 09/22/17 Time of Evaluation: 09:00 - Subjective Subjective: NO NEW COMPLAINTS Objective - Vital Signs/Intake and Output Vital Signs (last 24 hours): Temp Pulse Resp BP Pulse Ox 98.2 F 69 18 162/72 H 97 09/22/17 08:17 09/22/17 08:23 09/22/17 08:17 09/22/17 08:23 09/22/17 08:17 - Medications Medications: Current Medications Acetaminophen (Tylenol 325mg Tab) 650 mg PO Q6 PRN PRN Reason: Pain, moderate (4-7) Atorvastatin Calcium (Lipitor) 40 mg PO HS [facility] Last Admin: 09/21/17 21:42 Dose: 40 mg Collagenase (Santyl) 1 applic TOP DAILY [facility] Last Admin: 09/22/17 08:25 Dose: 1 applic Diltiazem HCl (Cardizem Cd) 240 mg PO DAILY [facility] Last Admin: 09/22/17 08:23 Dose: 240 mg Ferrous Sulfate (Feosol) 325 mg PO DAILY [facility] Last Admin: 09/22/17 08:21 Dose: 325 mg Glipizide (Glucotrol Xl) 2.5 mg PO DAILYWM [facility] Last Admin: 09/22/17 08:24 Dose: 2.5 mg Isosorbide Mononitrate (Imdur) 60 mg PO DAILY [facility] Last Admin: 09/22/17 08:24 Dose: 60 mg Latanoprost (Xalatan Opht) 1 drop OU [facility] Last Admin: 09/21/17 21:42 Dose: 1 drop Metformin HCl (Glucophage) 1,000 mg PO BID [facility] Last Admin: 09/22/17 08:21 Dose: 1,000 mg Metoprolol Succinate (Toprol Xl) 25 mg PO DAILY [facility] Last Admin: 09/22/17 08:22 Dose: 25 mg Ondansetron HCl (Zofran Inj) 4 mg IVP Q6 PRN PRN Reason: Nausea/Vomiting Senna/Docusate Sodium (Senokot S 50 Mg-8.6 Mg) 2 tab PO HS [facility] Last Admin: 09/21/17 21:42 Dose: 2 tab Timolol Maleate (Timoptic 0.5% Ophth Soln) 1 drop OU DAILY [facility] Last Admin: 09/22/17 08:24 Dose: 1 drop Venlafaxine HCl (Effexor Xr) 37.5 mg PO DAILY [facility] Last Admin: 09/22/17 08:23 Dose: 37.5 mg - Labs Labs: 09/20/17 06:05 09/18/17 05:30 PT 14.5 Seconds (9.8-13.1) H 09/18/17 05:30 INR 1.3 (0.9-1.2) H 09/18/17 05:30 APTT 33.7 Seconds (25.6-37.1) 09/18/17 05:30 - Respiratory Exam Respiratory Exam: Clear to Ausculation Bilateral - Cardiovascular Exam Cardiovascular Exam: Irregular Rhythm, +S1, +S2 - Additional Findings Additional findings: HOURLY SHIFT MANAGER SHOWS ATRIAL FIBRILLATION WITH MVR Assessment and Plan - Assessment and Plan (Free Text) Assessment: FALL WITH MULTIPLE TRAUMA CAD-STABLE CHRONIC ATRIAL FIBRILLATION HYPERTENSION HYPERLIPIDEMIA Plan: FOR DISCHARGE TO TCU
--- NOTE | 2017-09-22 10:33 | CP.PCM.DIS ---
Provider - Provider Date of Admission: 09/17/17 15:14 Attending physician: Kendall Barahona MD Time Spent in preparation of Discharge (in minutes): 30 Diagnosis - Discharge Diagnosis (1) Gait abnormality Status: Acute (2) Patellar fracture Status: Acute (3) Wrist sprain Status: Acute Hospital Course - Lab Results Lab Results: Most Recent Lab Values WBC 6.8 K/uL (4.8-10.8) 09/20/17 06:05 RBC 4.04 Mil/uL (3.80-5.20) 09/20/17 06:05 Hgb 10.8 g/dL (12.0-16.0) L D 09/20/17 06:05 Hct 33.2 % (34.0-47.0) L 09/20/17 06:05 MCV 82.1 fl (81.0-99.0) 09/20/17 06:05 MCH 26.9 pg (27.0-31.0) L 09/20/17 06:05 MCHC 32.7 g/dL (33.0-37.0) L 09/20/17 06:05 RDW 14.5 % (11.5-14.5) 09/20/17 06:05 Plt Count 284 K/uL (130-400) 09/20/17 06:05 MPV 8.2 fl (7.2-11.7) 09/18/17 05:30 Neut % (Auto) 69.9 % (50.0-75.0) 09/18/17 05:30 Lymph % (Auto) 13.1 % (20.0-40.0) L 09/18/17 05:30 [place] % (Auto) 10.9 % (0.0-10.0) H 09/18/17 05:30 Eos % (Auto) 5.2 % (0.0-4.0) H 09/18/17 05:30 Baso % (Auto) 0.9 % (0.0-2.0) 09/18/17 05:30 Neut # 3.9 K/uL (1.8-7.0) 09/18/17 05:30 Lymph # 0.7 K/uL (1.0-4.3) L 09/18/17 05:30 [place] # 0.6 K/uL (0.0-0.8) 09/18/17 05:30 Eos # 0.3 K/uL (0.0-0.7) 09/18/17 05:30 Baso # 0.1 K/uL (0.0-0.2) 09/18/17 05:30 PT 14.5 Seconds (9.8-13.1) H 09/18/17 05:30 INR 1.3 (0.9-1.2) H 09/18/17 05:30 APTT 33.7 Seconds (25.6-37.1) 09/18/17 05:30 Sodium 133 mmol/l (132-148) 09/18/17 05:30 Potassium 3.9 MMOL/L (3.6-5.0) 09/18/17 05:30 Chloride 100 mmol/L (98-107) 09/18/17 05:30 Carbon Dioxide 24 mmol/L (22-30) 09/18/17 05:30 Anion Gap 13 (10-20) 09/18/17 05:30 BUN 17 mg/dl (7-17) 09/18/17 05:30 Creatinine 1.0 mg/dl (0.7-1.2) 09/18/17 05:30 Est GFR ( Amer) > 60 09/18/17 05:30 Est GFR (Non-Af Amer) 53 09/18/17 05:30 POC Glucose (mg/dL) 111 mg/dL (65-110) H 09/22/17 05:10 Random Glucose 97 mg/dL (65-105) 09/18/17 05:30 Calcium 8.7 mg/dL (8.4-10.2) 09/18/17 05:30 Iron 20 ug/dL (37-170) L 09/18/17 09:44 TIBC 324 ug/dL (250-450) 09/18/17 09:44 % Saturation 6 % (20-55) L 09/18/17 09:44 Ferritin 66.6 ng/Ml (11.1-264.0) 09/18/17 09:44 Total Bilirubin 0.5 mg/dl (0.2-1.3) 09/17/17 14:00 AST 22 U/L (14-36) 01/17/18 14:00 ALT 21 U/L (9-52) 09/17/17 14:00 Alkaline Phosphatase 77 U/L (38-126) 09/17/17 14:00 Total Protein 7.0 G/DL (6.3-8.2) 09/17/17 14:00 Albumin 3.7 g/dL (3.5-5.0) 09/17/17 14:00 Globulin 3.3 gm/dL (2.2-3.9) 09/17/17 14:00 Albumin/Globulin Ratio 1.1 (1.0-2.1) 09/17/17 14:00 Folate 10.0 ng/mL 09/18/17 09:44 Blood Type A POSITIVE 09/18/17 10:49 Blood Type Confirm A POSITIVE 09/18/17 11:15 Antibody Screen Negative 09/18/17 10:49 Crossmatch See Detail 09/18/17 10:49 BBK History Checked No verified bt 09/18/17 10:49 - Hospital Course Hospital Course: This is an 82 y/o female admitted for gait dysfunciton. Noted to have sprain of the right wrist and fracture of the left patella which she sustained after a fa.. She was initially seen at [facility] and was sent home but could not ambulate hence sought consult at ER. She was noted to have patellar fracture. She was started on pain medications and phys therapy and did very well, She was noted to have elevated Bp and meds were adjusted. She was seen by Dr Ramirez and was advised no surgical intervention . She will be discharged to subacute rehab for further PT. She was discharged in stable condition. Discharge Exam - Head Exam Head Exam: NORMAL INSPECTION - Eye Exam Eye Exam: Normal appearance - Respiratory Exam Respiratory Exam: NORMAL BREATHING PATTERN - Cardiovascular Exam Cardiovascular Exam: REGULAR RHYTHM - GI/Abdominal Exam GI & Abdominal Exam: Normal Bowel Sounds - Neurological Exam Neurological exam: CN II-XII Intact, Oriented x3 Discharge Plan - Follow Up Plan Condition: STABLE Disposition: HOME/ ROUTINE Additional Instructions: discharge to TCU for rehab increase metoprolol to 25 bid
[2017-09-22 12:36] LABS: HEMOGLOBIN 11.5 g/dL (12.0-16.0); MEAN CELL VOLUME 83.5 fl (81.0-99.0); MEAN CORPUSCULAR HEMOGLOBIN 26.9 pg (27.0-31.0); MEAN CORPUSCULAR HGB CONC 32.2 g/dL (33.0-37.0); RBC 4.3 Mil/uL (3.80-5.20); RED CELL DISTRIBUTION WIDTH 15.1 % (11.5-14.5)
[2017-09-22 17:01] VITALS: BP 130/67; PULSE 61; RESP 14; TEMP 98; O2SAT 97
--- NOTE | 2017-09-22 21:13 | CP.PCM.PN ---
Subjective - Date & Time of Evaluation Date of Evaluation: 09/22/17 Time of Evaluation: 15:00 - Subjective Subjective: Podiatry Progress Note- Dr. Donnelly 82 y/o female patient with PMH of CAD, chronic atrial fibrillation, HTN, hyperlipidemia, DM2 seen and evaluated at bedside for chronic right leg ulceration. Patient is seen at bedside sitting comfortably in bed, in NAD, and AA0x3. She denies n/v/sob/cp/chills or f. No new pedal complaints at this time. Patient reports that she will be going to TCU today. She reports that she feels her wound is getting better. Objective - Vital Signs/Intake and Output Vital Signs (last 24 hours): Temp Pulse Resp BP Pulse Ox 98 F 61 14 130/67 97 09/22/17 17:01 09/22/17 17:01 09/22/17 17:01 09/22/17 17:01 09/22/17 17:01 - Labs Labs: 09/22/17 12:11 09/18/17 05:30 PT 14.5 Seconds (9.8-13.1) H 09/18/17 05:30 INR 1.3 (0.9-1.2) H 09/18/17 05:30 APTT 33.7 Seconds (25.6-37.1) 09/18/17 05:30 - Constitutional Appears: Well, Non-toxic, No Acute Distress - Extremities Exam Additional comments: Dressing is c/d/i without strikethrough - Neurological Exam Neurological Exam: Alert, Awake - Psychiatric Exam Psychiatric exam: Normal Affect, Normal Mood Assessment and Plan - Assessment and Plan (Free Text) Assessment: 82 y/o female with PMH of CAD, chronic atrial fibrillation, HTN, hyperlipidemia , DM2 with 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 Nunez upon discharge
== END 2017-09-22 18:00 | DRG 92 ==
LOC: H.ER 12:02 → H.ERHOLD 15:14 → H.TEL 18:58
PROVIDERS: ADMIT Family Medicine; ATTEND Family Medicine
PROC: 30233N1 Transfusion of Nonautologous Red Blood Cells into Peripheral Vein, Percutaneous Approach (ICD-10-PCS; principal; 2017-09-19)
DX: R26.89 Other abnormalities of gait and mobility (principal); D62 Acute posthemorrhagic anemia; E11.622 Type 2 diabetes mellitus with other skin ulcer; I48.2 Chronic atrial fibrillation; L97.919 Non-pressure chronic ulcer of unspecified part of right lower leg with unspecified severity; M25.00 Hemarthrosis, unspecified joint; Z68.1 Body mass index [BMI] 19.9 or less, adult; E78.00 Pure hypercholesterolemia, unspecified; E78.5 Hyperlipidemia, unspecified; I10 Essential (primary) hypertension; I25.10 Atherosclerotic heart disease of native coronary artery without angina pectoris; M81.0 Age-related osteoporosis without current pathological fracture; S63.501D Unspecified sprain of right wrist, subsequent encounter; S82.002D Unspecified fracture of left patella, subsequent encounter for closed fracture with routine healing; Z79.84 Long term (current) use of oral hypoglycemic drugs; Z95.5 Presence of coronary angioplasty implant and graft; F32.9 Major depressive disorder, single episode, unspecified; W01.0XXD Fall on same level from slipping, tripping and stumbling without subsequent striking against object, subsequent encounter; Y92.009 Unspecified place in unspecified non-institutional (private) residence as the place of occurrence of the external cause; M25.40 Effusion, unspecified joint; R63.0 Anorexia; S02.2XXD Fracture of nasal bones, subsequent encounter for fracture with routine healing

== ENCOUNTER 2017-09-22 12:30 | Inpatient (IN) | payer OTHER, MEDICARE ==
[2017-09-22 18:04] VITALS: BMI 19.3
[2017-09-22 18:33] VITALS: RESP 20
[2017-09-22] MEDS: Latanoprost 0.005% Opht SOUTION OU SCH (22:20)
--- NOTE | 2017-09-23 07:48 | CP.PCM.CON ---
History of Present Illness - History of Present Illness History of Present Illness: Podiatry Consult Note- Dr. Donnelly 82 y.o f with PMH of CAD, chronic atrial fibrillation, HTN, hyperlipidemia, DM2 consulted for chronic right leg ulceration. Patient is known to Dr. Nunez/ Dr. Donnelly for continue treatment of her right LE ulceration.Patient reports that she had this ulceration since May. She reports that it may have been from a insect bite. Patient denies odor, drainage, pain to the ulceration. Patient reports that she changes her dressing daily at home with Santyl. She denies n/v/sob/cp/chills or f. Past Patient History - Past Medical History & Family History Past Medical History?: Yes - Past Social History Smoking Status: Former Smoker - CARDIAC Hx Hypercholesterolemia: Yes Hx Hypertension: Yes - ENDOCRINE/METABOLIC Hx Diabetes Mellitus Type 2: Yes - HEMATOLOGICAL/ONCOLOGICAL Hx Anemia: Yes - MUSCULOSKELETAL/RHEUMATOLOGICAL Hx Falls: Yes (1) Hx Osteoporosis: Yes - PSYCHIATRIC Hx Substance Use: No - ANESTHESIA Hx Anesthesia: No Meds Allergies/Adverse Reactions: Allergies Allergy/AdvReac Type Severity Reaction Status Date / Time tuberculin,PPD,multi-puncture Allergy ANAPHYLAXIS Verified 09/22/17 18:05 levetiracetam [From [facility]] AdvReac DIZZINESS Verified 09/22/17 18:05 - Medications Medications: Current Medications Acetaminophen (Tylenol 325mg Tab) 650 mg PO Q6 PRN PRN Reason: Pain, moderate (4-7) Aspirin (Ecotrin) 81 mg PO HS [facility] Last Admin: 09/22/17 22:18 Dose: 81 mg Atorvastatin Calcium (Lipitor) 40 mg PO HS [facility] Last Admin: 09/22/17 22:19 Dose: 40 mg Collagenase (Santyl) 1 applic TOP DAILY [facility] Diltiazem HCl (Cardizem Cd) 240 mg PO DAILY [facility] Ferrous Sulfate (Feosol) 325 mg PO DAILY [facility] Glipizide (Glucotrol Xl) 2.5 mg PO BRK [facility] Isosorbide Mononitrate (Imdur) 60 mg PO DAILY [facility] Latanoprost (Xalatan Opht) 1 drop OU HS [facility] Last Admin: 09/22/17 22:20 Dose: 1 drop Metformin HCl (Glucophage) 1,000 mg PO BID [facility] Metoprolol Tartrate (Lopressor) 25 mg PO Q12 [facility] Last Admin: 09/22/17 22:19 Dose: 25 mg Rivaroxaban (Xarelto) 15 mg PO DAILY [facility] PRN Reason: Protocol Last Admin: 09/22/17 22:21 Dose: Not Given Timolol Maleate (Timoptic 0.5% Ophth Soln) 1 drop OU DAILY [facility] Venlafaxine HCl (Effexor Xr) 37.5 mg PO DAILY [facility] Physical Exam - Back Exam Additional comments: Vasc: DP and PT weakly palpable, CFT < 3 seconds, temperature is cool to cool, no edema noted Ortho: no pain with palpation to the ulceration, MM is 5/5 in all four compartments Neuro: gross sensation intact, protective sensation diminished Derm: partial thickness ulceration noted to the posterior lateral aspect of lower leg measuring approximately 2.5 x 3 x .1, no probe to bone, no erythema, no drainage, no purulence, no undermining, or tunneling, no odor, no clinical signs of infection. Wound base is 80% fibrotic centrally with 20% granular base in peripheral - Neurological Exam Neurological exam: Alert, Oriented x3 - Psychiatric Exam Psychiatric exam: Normal Affect, Normal Mood Results - Vital Signs Recent Vital Signs: Last Vital Signs Temp 97.3 F L 09/22/17 21:31 Pulse 80 09/22/17 22:19 Resp 20 09/22/17 21:31 BP 132/79 09/22/17 22:19 Pulse Ox 100 09/22/17 21:31 - Labs Labs: Laboratory Results - last 24 hr 09/22/17 09/23/17 21:07 05:57 POC Glucose (mg/dL) 89 99 Assessment & Plan - Assessment and Plan (Free Text) Assessment: 82 y.o f with PMH of CAD, chronic atrial fibrillation, HTN, hyperlipidemia, DM2 with 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 Nunez upon discharge - Date & Time Date: 09/23/17 Time: 09:36
--- NOTE | 2017-09-23 08:46 | CP.PCM.HP ---
History of Present Illness - History of Present Illness History of Present Illness: 82 yr old F admitted to TCU for PT and rehabilitations s/p mechanical fall resulting in right wrist sprain and left patellar fracture. Patient lives alone and was unable to safely ambulate using cane with left hand. PMHx includes CAD s /p 4 stents placed, chronic A-fib -rate controlled, NIDDM type 2, chronic distal lateral RLE ulcer. PMD: Dr. Hardy Specialists: Dr. Nunez-wound care ; Regulatory Leader: Dr. Boyd PMHx: CAD s/p 4 stents placed March 2009, chronic A-fib -rate controlled, NIDDM type 2, chronic distal lateral RLE ulcer SurgHx: BTL, 4 cardiac stents March 2009, tonsillectomy/adenoidectomy, Right thumb trigger finger release FMHx: mother from [place], had thyroid disease, Father at 56 yrs old from stomach cancer, sister at 51 yrs old from aneurysm SocHx: denies smoking, Etoh and drugs Medications: see medication reconciliation Allergies: tuberculin skin test/PPD, levetiracetam Present on Admission - Present on Admission Any Indicators Present on Admission: No History of DVT/PE: No History of Uncontrolled Diabetes: No Urinary Catheter: No Decubitus Ulcer Present: No History Surgical Site Infection Following: None Review of Systems - Review of Systems All systems: reviewed and no additional remarkable complaints except (for what is mentioned in the HPI) - Constitutional Constitutional: absent: Chills, Fever - EENT Eyes: absent: Blurred Vision, Change in Vision Ears: absent: Ear Pain Nose/Mouth/Throat: absent: Nasal Congestion, Nasal Discharge - Cardiovascular Cardiovascular: absent: Chest Pain, Dyspnea - Respiratory Respiratory: absent: Cough, Hemoptysis - Gastrointestinal Gastrointestinal: absent: Abdominal Pain, Nausea, Vomiting - Genitourinary Genitourinary: absent: Difficulty Urinating, Dysuria - Musculoskeletal Musculoskeletal: absent: Numbness, Tingling - Integumentary Integumentary: absent: Bleeding Lesions - Neurological Neurological: absent: Dizziness, Focal Weakness - Psychiatric Psychiatric: absent: Anxiety, Depression - Endocrine Endocrine: absent: Polydipsia, Polyuria - Hematologic/Lymphatic Hematologic: absent: Easy Bleeding, Easy Bruising Past Patient History - Past Medical History & Family History Past Medical History?: Yes - Past Social History Smoking Status: Former Smoker - CARDIAC Hx Hypercholesterolemia: Yes Hx Hypertension: Yes - ENDOCRINE/METABOLIC Hx Diabetes Mellitus Type 2: Yes - HEMATOLOGICAL/ONCOLOGICAL Hx Anemia: Yes - MUSCULOSKELETAL/RHEUMATOLOGICAL Hx Falls: Yes (1) Hx Osteoporosis: Yes - PSYCHIATRIC Hx Substance Use: No - ANESTHESIA Hx Anesthesia: No Meds Allergies/Adverse Reactions: Allergies Allergy/AdvReac Type Severity Reaction Status Date / Time tuberculin,PPD,multi-puncture Allergy ANAPHYLAXIS Verified 09/22/17 18:05 levetiracetam [From [facility]] AdvReac DIZZINESS Verified 09/22/17 18:05 Physical Exam - Constitutional Appears: Other (small thin frame) - Head Exam Head Exam: ATRAUMATIC, NORMOCEPHALIC - Eye Exam Eye Exam: EOMI - ENT Exam ENT Exam: Mucous Membranes Moist - Neck Exam Neck exam: Positive for: Full Rom. Negative for: Lymphadenopathy - Respiratory Exam Respiratory Exam: Clear to Auscultation Bilateral, NORMAL BREATHING PATTERN - Cardiovascular Exam Cardiovascular Exam: REGULAR RHYTHM, +S1, +S2 - GI/Abdominal Exam GI & Abdominal Exam: Normal Bowel Sounds, Soft. absent: Tenderness - Extremities Exam Extremities exam: Negative for: pedal edema Additional comments: right wrist in splint - Neurological Exam Neurological exam: Alert, CN II-XII Intact, Oriented x3 - Psychiatric Exam Psychiatric exam: Normal Affect, Normal Mood - Skin Skin Exam: Dry, Normal Color, Warm Results - Vital Signs Recent Vital Signs: Last Vital Signs Temp 97.3 F L 09/22/17 21:31 Pulse 80 09/22/17 22:19 Resp 20 09/22/17 21:31 BP 132/79 09/22/17 22:19 Pulse Ox 100 09/22/17 21:31 - Labs Labs: Laboratory Results - last 24 hr 09/22/17 09/23/17 21:07 05:57 POC Glucose (mg/dL) 89 99 Assessment & Plan - Assessment and Plan (Free Text) Assessment: 82 yr old F admitted to TCU for PT and rehabilitations s/p mechanical fall resulting in right wrist sprain and left patellar fracture. Patient lives alone and was unable to safely ambulate using cane with left hand. PMHx includes CAD s /p 4 stents placed, chronic A-fib -rate controlled, NIDDM type 2, chronic distal lateral RLE ulcer. -PT/OT -resume home meds -heart healthy diet -resume Xarelto -SCD's PRN -hypoglycemia protocol in place -Podiatry on consult - Date & Time Date: 09/23/17 Time: 08:45
[2017-09-23] MEDS ORDERED: Metoprolol Succinate 25 mg XL Tab PO SCH (09:00)
[2017-09-23] MEDS: diltiaZEM 240 mg/24 Hours CD Cap PO SCH (09:17)
[2017-09-23] MEDS: GlipiZIDE 2.5 mg SR Tab PO SCH (09:18)
[2017-09-23] MEDS: Venlafaxine 37.5 mg ER Cap PO SCH (09:19)
[2017-09-23] MEDS: Santyl Collagenase OINTMENT TOP SCH (09:20)
[2017-09-23] MEDS ORDERED: Dextrose 50% SYRINGE Inj (50 ml) IV PRN (18:12)
[2017-09-23] MEDS ORDERED: Glucagon Recombinant 1 mg Inj IM PRN (18:12)
[2017-09-23] MEDS: Latanoprost 0.005% Opht SOUTION OU SCH (21:21)
[2017-09-24] MEDS: Santyl Collagenase OINTMENT TOP SCH (08:18)
[2017-09-24] MEDS: diltiaZEM 240 mg/24 Hours CD Cap PO SCH (08:19)
[2017-09-24] MEDS: Venlafaxine 37.5 mg ER Cap PO SCH (08:20)
[2017-09-24] MEDS: GlipiZIDE 2.5 mg SR Tab PO SCH (08:20)
--- NOTE | 2017-09-24 09:11 | CP.PCM.PN ---
Subjective - Date & Time of Evaluation Date of Evaluation: 09/24/17 Time of Evaluation: 08:00 - Subjective Subjective: Podiatry Progress Note- Dr. Donnelly 82 y.o f with PMH of CAD, chronic atrial fibrillation, HTN, hyperlipidemia, DM2 seen at bedside for chronic right leg ulceration. Patient is sitting comfortably in bed enjoying breakfast. Patient reports no acute overnight events. She is in NAD and AA0x3. Reports no pain. She denies n/v/sob/cp/chills or f. No new pedal complaints Objective - Vital Signs/Intake and Output Vital Signs (last 24 hours): Temp Pulse Resp BP Pulse Ox 97.0 F L 82 20 152/78 H 99 09/24/17 08:22 09/24/17 08:22 09/24/17 08:22 09/24/17 08:22 09/24/17 08:22 - Medications Medications: Current Medications Acetaminophen (Tylenol 325mg Tab) 650 mg PO Q6 PRN PRN Reason: Pain, moderate (4-7) Aspirin (Ecotrin) 81 mg PO HS [facility] Last Admin: 09/23/17 21:21 Dose: 81 mg Atorvastatin Calcium (Lipitor) 40 mg PO HS [facility] Last Admin: 09/23/17 21:21 Dose: 40 mg Collagenase (Santyl) 1 applic TOP DAILY [facility] Last Admin: 09/24/17 08:18 Dose: 1 u Dextrose (Dextrose 50% Inj) 0 ml IV STAT PRN; Protocol PRN Reason: Hypoglycemia Protocol Dextrose (Glutose 15) 0 gm PO ONCE PRN; Protocol PRN Reason: Hypoglycemia Protocol Diltiazem HCl (Cardizem Cd) 240 mg PO DAILY [facility] Last Admin: 09/24/17 08:19 Dose: 240 mg Ferrous Sulfate (Feosol) 325 mg PO DAILY [facility] Last Admin: 09/24/17 08:20 Dose: 325 mg Glipizide (Glucotrol Xl) 2.5 mg PO BRK [facility] Last Admin: 09/24/17 08:20 Dose: 2.5 mg Glucagon (Glucagen Diagnostic Kit) 0 mg IM STAT PRN; Protocol PRN Reason: Hypoglycemia Protocol Isosorbide Mononitrate (Imdur) 60 mg PO DAILY [facility] Last Admin: 09/24/17 08:20 Dose: 60 mg Latanoprost (Xalatan Opht) 1 drop OU HS [facility] Last Admin: 09/23/17 21:21 Dose: 1 drop Metformin HCl (Glucophage) 1,000 mg PO BID [facility] Last Admin: 09/24/17 08:20 Dose: 1,000 mg Metoprolol Tartrate (Lopressor) 25 mg PO Q12 [facility] Last Admin: 09/24/17 08:20 Dose: 25 mg Rivaroxaban (Xarelto) 15 mg PO DAILY [facility] PRN Reason: Protocol Last Admin: 09/24/17 08:21 Dose: 15 mg Timolol Maleate (Timoptic 0.5% Ophth Soln) 1 drop OU DAILY [facility] Last Admin: 09/24/17 08:19 Dose: 1 u Venlafaxine HCl (Effexor Xr) 37.5 mg PO DAILY [facility] Last Admin: 09/24/17 08:20 Dose: 37.5 mg - Constitutional Appears: Well, Non-toxic, No Acute Distress - Extremities Exam Additional comments: Vasc: DP and PT weakly palpable, CFT < 3 seconds, temperature is cool to cool, no edema noted Ortho: no pain with palpation to the ulceration, MM is 5/5 in all four compartments Neuro: gross sensation intact, protective sensation diminished Derm: partial thickness ulceration noted to the posterior lateral aspect of lower leg measuring approximately 2.5 x 3 x .1, no probe to bone, no erythema, no drainage, no purulence, no undermining, or tunneling, no odor, no clinical signs of infection. 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 Nunez upon discharge
[2017-09-24] MEDS: Latanoprost 0.005% Opht SOUTION OU SCH (22:45)
[2017-09-25] MEDS: diltiaZEM 240 mg/24 Hours CD Cap PO SCH (08:49)
[2017-09-25] MEDS: GlipiZIDE 2.5 mg SR Tab PO SCH (08:49)
[2017-09-25] MEDS: Venlafaxine 37.5 mg ER Cap PO SCH (08:50)
[2017-09-25] MEDS: Santyl Collagenase OINTMENT TOP SCH (08:51)
--- NOTE | 2017-09-25 15:06 | CP.PCM.PN ---
Subjective - Date & Time of Evaluation Date of Evaluation: 09/25/17 Time of Evaluation: 10:55 - Subjective Subjective: Patient seen and examined with attending- Dr. Barahona, patient was actively participating in PT. Reports tolerating PO diet, ambulating with assistance. Denies chest pain, nausea, vomiting, weakness or dizziness. Objective - Vital Signs/Intake and Output Vital Signs (last 24 hours): Temp Pulse Resp BP Pulse Ox 97.5 F L 70 20 142/75 99 09/25/17 07:49 09/25/17 08:49 09/25/17 07:49 09/25/17 08:49 09/25/17 07:49 - Medications Medications: Current Medications Acetaminophen (Tylenol 325mg Tab) 650 mg PO Q6 PRN PRN Reason: Pain, moderate (4-7) Aspirin (Ecotrin) 81 mg PO HS [facility] Last Admin: 09/24/17 21:29 Dose: 81 mg Atorvastatin Calcium (Lipitor) 40 mg PO HS [facility] Last Admin: 09/24/17 21:30 Dose: 40 mg Collagenase (Santyl) 1 applic TOP DAILY [facility] Last Admin: 09/25/17 08:51 Dose: 1 u Dextrose (Dextrose 50% Inj) 0 ml IV STAT PRN; Protocol PRN Reason: Hypoglycemia Protocol Dextrose (Glutose 15) 0 gm PO ONCE PRN; Protocol PRN Reason: Hypoglycemia Protocol Diltiazem HCl (Cardizem Cd) 240 mg PO DAILY [facility] Last Admin: 09/25/17 08:49 Dose: 240 mg Ferrous Sulfate (Feosol) 325 mg PO DAILY [facility] Last Admin: 09/25/17 08:50 Dose: 325 mg Glipizide (Glucotrol Xl) 2.5 mg PO BRK [facility] Last Admin: 09/25/17 08:49 Dose: 2.5 mg Glucagon (Glucagen Diagnostic Kit) 0 mg IM STAT PRN; Protocol PRN Reason: Hypoglycemia Protocol Isosorbide Mononitrate (Imdur) 60 mg PO DAILY [facility] Last Admin: 09/25/17 08:49 Dose: 60 mg Latanoprost (Xalatan Opht) 1 drop OU HS [facility] Last Admin: 09/24/17 22:45 Dose: 1 drop Metformin HCl (Glucophage) 1,000 mg PO BID [facility] Last Admin: 09/25/17 08:48 Dose: 1,000 mg Metoprolol Tartrate (Lopressor) 25 mg PO Q12 [facility] Last Admin: 09/25/17 08:48 Dose: 25 mg Rivaroxaban (Xarelto) 15 mg PO DAILY [facility] PRN Reason: Protocol Last Admin: 09/25/17 08:48 Dose: 15 mg Timolol Maleate (Timoptic 0.5% Ophth Soln) 1 drop OU DAILY [facility] Last Admin: 09/25/17 08:51 Dose: 1 u Venlafaxine HCl (Effexor Xr) 37.5 mg PO DAILY [facility] Last Admin: 09/25/17 08:50 Dose: 37.5 mg - Constitutional Appears: No Acute Distress, Other (patient has small thin frame) - Head Exam Head Exam: ATRAUMATIC, NORMOCEPHALIC - Eye Exam Eye Exam: EOMI - ENT Exam ENT Exam: Mucous Membranes Moist - Neck Exam Neck Exam: Full ROM - Respiratory Exam Respiratory Exam: NORMAL BREATHING PATTERN - Cardiovascular Exam Cardiovascular Exam: REGULAR RHYTHM, +S1, +S2 - GI/Abdominal Exam GI & Abdominal Exam: Soft, Normal Bowel Sounds - Extremities Exam Extremities Exam: absent: Pedal Edema Additional comments: Right wrist and thumb in splint and JUANA bandage - Neurological Exam Neurological Exam: Alert, Awake, Oriented x3 - Psychiatric Exam Psychiatric exam: Normal Affect, Normal Mood - Skin Skin Exam: Dry, Warm Assessment and Plan - Assessment and Plan (Free Text) Assessment: 82 yr old F admitted to TCU for PT and rehabilitations s/p mechanical fall resulting in right wrist sprain and left patellar fracture. -PT/OT -continue home medications -heart healthy diet -SCD's PRN -hypoglycemia protocol in place -Podiatry on consult -consider right wrist thumb spica brace
[2017-09-25] MEDS: Latanoprost 0.005% Opht SOUTION OU SCH (21:02)
[2017-09-26 06:52] LABS: HEMOGLOBIN 11.4 g/dL (12.0-16.0); MEAN CELL VOLUME 82.5 fl (81.0-99.0); MEAN CORPUSCULAR HEMOGLOBIN 27.2 pg (27.0-31.0); RBC 4.2 Mil/uL (3.80-5.20); RED CELL DISTRIBUTION WIDTH 15.4 % (11.5-14.5); WHITE BLOOD COUNT 7.5 K/uL (4.8-10.8)
[2017-09-26 07:27] LABS: BLOOD UREA NITROGEN 27 mg/dl (7-17); CALCIUM 9.2 mg/dL (8.4-10.2); GFR AFRICAN-AMERICAN > 60; GFR NON-AFRICAN AMERICAN 53
[2017-09-26] MEDS: diltiaZEM 240 mg/24 Hours CD Cap PO SCH (08:00)
[2017-09-26] MEDS: GlipiZIDE 2.5 mg SR Tab PO SCH (08:01)
[2017-09-26] MEDS: Venlafaxine 37.5 mg ER Cap PO SCH (08:01)
--- NOTE | 2017-09-26 15:12 | CP.PCM.PN ---
Subjective - Date & Time of Evaluation Date of Evaluation: 09/26/17 Time of Evaluation: 10:50 - Subjective Subjective: Patient seen and examined at bedside with attending-Dr. Barahona. Patient reports doing well with PT. Denies chest pain, SOB, weakness or dizziness. Right wrist splint was removed and placed in a thump spica brace. Objective - Vital Signs/Intake and Output Vital Signs (last 24 hours): Temp Pulse Resp BP Pulse Ox 97.1 F L 74 20 154/88 H 99 09/26/17 10:00 09/26/17 10:00 09/26/17 10:00 09/26/17 10:00 09/26/17 10:00 - Medications Medications: Current Medications Acetaminophen (Tylenol 325mg Tab) 650 mg PO Q6 PRN PRN Reason: Pain, moderate (4-7) Aspirin (Ecotrin) 81 mg PO HS [facility] Last Admin: 09/25/17 21:00 Dose: 81 mg Atorvastatin Calcium (Lipitor) 40 mg PO HS [facility] Last Admin: 09/25/17 21:00 Dose: 40 mg Collagenase (Santyl) 1 applic TOP DAILY [facility] Last Admin: 09/25/17 08:51 Dose: 1 u Dextrose (Dextrose 50% Inj) 0 ml IV STAT PRN; Protocol PRN Reason: Hypoglycemia Protocol Dextrose (Glutose 15) 0 gm PO ONCE PRN; Protocol PRN Reason: Hypoglycemia Protocol Diltiazem HCl (Cardizem Cd) 240 mg PO DAILY [facility] Last Admin: 09/26/17 08:00 Dose: 240 mg Ferrous Sulfate (Feosol) 325 mg PO DAILY [facility] Last Admin: 09/26/17 08:01 Dose: 325 mg Glipizide (Glucotrol Xl) 2.5 mg PO BRK [facility] Last Admin: 09/26/17 08:01 Dose: 2.5 mg Glucagon (Glucagen Diagnostic Kit) 0 mg IM STAT PRN; Protocol PRN Reason: Hypoglycemia Protocol Isosorbide Mononitrate (Imdur) 60 mg PO DAILY [facility] Last Admin: 09/26/17 08:02 Dose: 60 mg Latanoprost (Xalatan Opht) 1 drop OU HS [facility] Last Admin: 09/25/17 21:02 Dose: 1 drop Metformin HCl (Glucophage) 1,000 mg PO BID [facility] Last Admin: 09/26/17 08:07 Dose: 1,000 mg Metoprolol Tartrate (Lopressor) 25 mg PO Q12 [facility] Last Admin: 09/26/17 08:02 Dose: 25 mg Rivaroxaban (Xarelto) 15 mg PO DAILY [facility] PRN Reason: Protocol Last Admin: 09/26/17 08:03 Dose: 15 mg Timolol Maleate (Timoptic 0.5% Ophth Soln) 1 drop OU DAILY [facility] Last Admin: 09/26/17 08:03 Dose: 1 u Venlafaxine HCl (Effexor Xr) 37.5 mg PO DAILY [facility] Last Admin: 09/26/17 08:01 Dose: 37.5 mg - Labs Labs: 09/26/17 06:25 09/26/17 06:25 - Constitutional Appears: No Acute Distress - Head Exam Head Exam: ATRAUMATIC, NORMOCEPHALIC - Eye Exam Eye Exam: EOMI - ENT Exam ENT Exam: Mucous Membranes Moist - Neck Exam Neck Exam: Full ROM - Respiratory Exam Respiratory Exam: Clear to Ausculation Bilateral, NORMAL BREATHING PATTERN - Cardiovascular Exam Cardiovascular Exam: REGULAR RHYTHM, +S1, +S2 - GI/Abdominal Exam GI & Abdominal Exam: Soft, Normal Bowel Sounds - Extremities Exam Extremities Exam: Full ROM. absent: Calf Tenderness, Pedal Edema - Neurological Exam Neurological Exam: Alert, Awake, CN II-XII Intact, Oriented x3 - Psychiatric Exam Psychiatric exam: Normal Affect, Normal Mood - Skin Skin Exam: Dry, Normal Color, Warm Assessment and Plan - Assessment and Plan (Free Text) Assessment: -continue present management -Wear right-thumb spica brace PRN -PT/OT
[2017-09-26] MEDS: Santyl Collagenase OINTMENT TOP SCH (16:42)
[2017-09-26] MEDS: Latanoprost 0.005% Opht SOUTION OU SCH (21:18)
[2017-09-27] MEDS: GlipiZIDE 2.5 mg SR Tab PO SCH (08:13)
[2017-09-27] MEDS: Venlafaxine 37.5 mg ER Cap PO SCH (08:14)
[2017-09-27] MEDS: diltiaZEM 240 mg/24 Hours CD Cap PO SCH (08:14)
[2017-09-27] MEDS: Santyl Collagenase OINTMENT TOP SCH (08:15)
--- NOTE | 2017-09-27 09:18 | CP.PCM.PN ---
Subjective - Date & Time of Evaluation Date of Evaluation: 09/27/17 Time of Evaluation: 09:16 - Subjective Subjective: 82 year old female seen at bedside for painful, healing ulceration of right lateral leg. Patient is AAO x 3 and NAD seen eating breakfast in bed at time of visit. Patient denies any acute overnight events or any further pedal complaints at this time. Denies any recent N/V/F/C/CP/SOB/D/posterior calf pain when squeezed. Objective - Vital Signs/Intake and Output Vital Signs (last 24 hours): Temp Pulse Resp BP Pulse Ox 97.7 F 75 20 142/76 99 09/26/17 19:57 09/27/17 08:15 09/26/17 19:57 09/27/17 08:15 09/26/17 19:57 - Medications Medications: Current Medications Acetaminophen (Tylenol 325mg Tab) 650 mg PO Q6 PRN PRN Reason: Pain, moderate (4-7) Aspirin (Ecotrin) 81 mg PO HS [facility] Last Admin: 09/26/17 21:17 Dose: 81 mg Atorvastatin Calcium (Lipitor) 40 mg PO HS [facility] Last Admin: 09/26/17 21:17 Dose: 40 mg Collagenase (Santyl) 1 applic TOP DAILY [facility] Last Admin: 09/27/17 08:15 Dose: 1 u Dextrose (Dextrose 50% Inj) 0 ml IV STAT PRN; Protocol PRN Reason: Hypoglycemia Protocol Dextrose (Glutose 15) 0 gm PO ONCE PRN; Protocol PRN Reason: Hypoglycemia Protocol Diltiazem HCl (Cardizem Cd) 240 mg PO DAILY [facility] Last Admin: 09/27/17 08:14 Dose: 240 mg Ferrous Sulfate (Feosol) 325 mg PO DAILY [facility] Last Admin: 09/27/17 08:14 Dose: 325 mg Glipizide (Glucotrol Xl) 2.5 mg PO BRK [facility] Last Admin: 09/27/17 08:13 Dose: 2.5 mg Glucagon (Glucagen Diagnostic Kit) 0 mg IM STAT PRN; Protocol PRN Reason: Hypoglycemia Protocol Isosorbide Mononitrate (Imdur) 60 mg PO DAILY [facility] Last Admin: 09/27/17 08:14 Dose: 60 mg Latanoprost (Xalatan Opht) 1 drop OU HS [facility] Last Admin: 09/26/17 21:18 Dose: 1 drop Metformin HCl (Glucophage) 1,000 mg PO BID [facility] Last Admin: 09/27/17 08:13 Dose: 1,000 mg Metoprolol Tartrate (Lopressor) 25 mg PO Q12 [facility] Last Admin: 09/27/17 08:15 Dose: 25 mg Rivaroxaban (Xarelto) 15 mg PO DAILY [facility] PRN Reason: Protocol Last Admin: 09/27/17 08:13 Dose: 15 mg Timolol Maleate (Timoptic 0.5% Ophth Soln) 1 drop OU DAILY [facility] Last Admin: 09/27/17 08:16 Dose: 1 u Venlafaxine HCl (Effexor Xr) 37.5 mg PO DAILY [facility] Last Admin: 09/27/17 08:14 Dose: 37.5 mg - Labs Labs: 09/26/17 06:25 09/26/17 06:25 - Constitutional Appears: Well, Non-toxic, No Acute Distress - Extremities Exam Additional comments: Vasc: DP and PT weakly palpable, CFT < 3 seconds, temperature is cool to cool, no edema noted Ortho: no pain with palpation to the ulceration, MM is 5/5 in all four compartments Neuro: gross sensation intact, protective sensation diminished Derm: partial thickness ulceration noted to the posterior lateral aspect of lower leg measuring approximately 2 x 2.5 x .1, no probe to bone, no erythema, no drainage, no purulence, no undermining, or tunneling, no odor, no clinical signs of infection. 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 Donnelly Afebrile and absent leukocytosis at last measurements Wound dressed with JAYLAN Rodriges No plan for surgical intervention at this time Podiatry will continue to follow while patient in house
[2017-09-27] MEDS: Latanoprost 0.005% Opht SOUTION OU SCH (20:59)
[2017-09-28] MEDS: Venlafaxine 37.5 mg ER Cap PO SCH (08:13)
[2017-09-28] MEDS: diltiaZEM 240 mg/24 Hours CD Cap PO SCH (08:14)
[2017-09-28] MEDS: GlipiZIDE 2.5 mg SR Tab PO SCH (08:14)
[2017-09-28] MEDS: Santyl Collagenase OINTMENT TOP SCH (08:17)
[2017-09-28 17:25] VITALS: O2SAT 99
[2017-09-28] MEDS: Latanoprost 0.005% Opht SOUTION OU SCH (21:15)
[2017-09-29 08:11] VITALS: BP 147/91; PULSE 91; TEMP 97.5
--- NOTE | 2017-09-29 08:19 | CP.PCM.PN ---
Subjective - Date & Time of Evaluation Date of Evaluation: 09/29/17 Time of Evaluation: 08:00 - Subjective Subjective: 82 year old female seen at bedside for painful, healing ulceration of right lateral leg. Patient is AAO x 3 and NAD seen eating breakfast in bed at time of visit. Patient denies any acute overnight events or any further pedal complaints at this time. Patient reports that pain has decreased greatly to the ulceration site. She feels that the ulceration appears smaller as well. Denies any recent N/V/F/C/CP/SOB/D/posterior calf pain when squeezed. Objective - Vital Signs/Intake and Output Vital Signs (last 24 hours): Temp Pulse Resp BP Pulse Ox 97.5 F L 91 H 20 147/91 H 99 09/29/17 08:09 09/29/17 08:09 09/29/17 08:09 09/29/17 08:09 09/29/17 08:09 - Medications Medications: Current Medications Acetaminophen (Tylenol 325mg Tab) 650 mg PO Q6 PRN PRN Reason: Pain, moderate (4-7) Aspirin (Ecotrin) 81 mg PO HS [facility] Last Admin: 09/28/17 21:15 Dose: 81 mg Atorvastatin Calcium (Lipitor) 40 mg PO HS [facility] Last Admin: 09/28/17 21:15 Dose: 40 mg Collagenase (Santyl) 1 applic TOP DAILY [facility] Last Admin: 09/28/17 08:17 Dose: Not Given Dextrose (Dextrose 50% Inj) 0 ml IV STAT PRN; Protocol PRN Reason: Hypoglycemia Protocol Dextrose (Glutose 15) 0 gm PO ONCE PRN; Protocol PRN Reason: Hypoglycemia Protocol Diltiazem HCl (Cardizem Cd) 240 mg PO DAILY [facility] Last Admin: 09/28/17 08:14 Dose: 240 mg Ferrous Sulfate (Feosol) 325 mg PO DAILY [facility] Last Admin: 09/28/17 08:14 Dose: 325 mg Glipizide (Glucotrol Xl) 2.5 mg PO BRK [facility] Last Admin: 09/28/17 08:14 Dose: 2.5 mg Glucagon (Glucagen Diagnostic Kit) 0 mg IM STAT PRN; Protocol PRN Reason: Hypoglycemia Protocol Isosorbide Mononitrate (Imdur) 60 mg PO DAILY [facility] Last Admin: 09/28/17 08:14 Dose: 60 mg Latanoprost (Xalatan Opht) 1 drop OU HS [facility] Last Admin: 09/28/17 21:15 Dose: 1 drop Metformin HCl (Glucophage) 1,000 mg PO BID [facility] Last Admin: 09/28/17 16:40 Dose: 1,000 mg Metoprolol Tartrate (Lopressor) 25 mg PO Q12 [facility] Last Admin: 09/28/17 21:15 Dose: 25 mg Rivaroxaban (Xarelto) 15 mg PO DAILY [facility] PRN Reason: Protocol Last Admin: 09/28/17 08:14 Dose: 15 mg Timolol Maleate (Timoptic 0.5% Ophth Soln) 1 drop OU DAILY [facility] Last Admin: 09/28/17 08:15 Dose: 1 u Venlafaxine HCl (Effexor Xr) 37.5 mg PO DAILY [facility] Last Admin: 09/28/17 08:13 Dose: 37.5 mg - Labs Labs: 09/26/17 06:25 09/26/17 06:25 - Constitutional Appears: Well, Non-toxic, No Acute Distress - Extremities Exam Additional comments: Vasc: DP and PT weakly palpable, CFT < 3 seconds, temperature is cool to cool, no edema noted Ortho: no pain with palpation to the ulceration, MM is 5/5 in all four compartments Neuro: gross sensation intact, protective sensation diminished Derm: partial thickness ulceration noted to the posterior lateral aspect of lower leg measuring approximately 2 x 2.5 x .1, no probe to bone, no erythema, no drainage, no purulence, no undermining, or tunneling, no odor, no clinical signs of infection. 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 Donnelly Afebrile and absent leukocytosis at last measurements Wound dressed with Santyl, DSD No plan for surgical intervention at this time-stable per podiatry standpoint Patient will follow up with Dr. Nunez as an outpatient Patient instructed to continue application of Santyl with dsd every other day or as instructed by Dr. Nunez
[2017-09-29] MEDS: Venlafaxine 37.5 mg ER Cap PO SCH (08:32)
[2017-09-29] MEDS: diltiaZEM 240 mg/24 Hours CD Cap PO SCH (08:32)
[2017-09-29] MEDS: GlipiZIDE 2.5 mg SR Tab PO SCH (08:32)
[2017-09-29] MEDS: Santyl Collagenase OINTMENT TOP SCH (08:35)
--- NOTE | 2017-09-29 22:58 | CP.PCM.PN ---
Subjective - Date & Time of Evaluation Date of Evaluation: 09/27/17 Time of Evaluation: 09:30 - Subjective Subjective: Patient remains stable Doing well with PT Has no chest pain or SOB. Has minimal pain on the knee. Objective - Vital Signs/Intake and Output Vital Signs (last 24 hours): Temp Pulse Resp BP Pulse Ox 97.5 F L 91 H 20 147/91 H 99 09/29/17 08:09 09/29/17 08:33 09/29/17 08:09 09/29/17 08:33 09/29/17 08:09 - Labs Labs: 09/26/17 06:25 09/26/17 06:25 - Head Exam Head Exam: NORMAL INSPECTION - Eye Exam Eye Exam: Normal appearance - ENT Exam ENT Exam: Mucous Membranes Moist - Respiratory Exam Respiratory Exam: NORMAL BREATHING PATTERN - Cardiovascular Exam Cardiovascular Exam: REGULAR RHYTHM - GI/Abdominal Exam GI & Abdominal Exam: Normal Bowel Sounds - Neurological Exam Neurological Exam: CN II-XII Intact - Skin Skin Exam: Intact Assessment and Plan (1) Gait abnormality Status: Acute (2) Patellar fracture Status: Acute (3) Wrist sprain Status: Acute - Assessment and Plan (Free Text) Plan: Cont meds Cont tx Cont PT
--- NOTE | 2017-09-29 23:01 | CP.PCM.PN ---
Subjective - Date & Time of Evaluation Date of Evaluation: 09/28/17 Time of Evaluation: 10:00 - Subjective Subjective: Patient is doing well Has no chest pain or SOB Has been doing well with PT Objective - Vital Signs/Intake and Output Vital Signs (last 24 hours): Temp Pulse Resp BP Pulse Ox 97.5 F L 91 H 20 147/91 H 99 09/29/17 08:09 09/29/17 08:33 09/29/17 08:09 09/29/17 08:33 09/29/17 08:09 - Labs Labs: 09/26/17 06:25 09/26/17 06:25 - Head Exam Head Exam: NORMAL INSPECTION - Eye Exam Eye Exam: Normal appearance - Respiratory Exam Respiratory Exam: NORMAL BREATHING PATTERN - Cardiovascular Exam Cardiovascular Exam: REGULAR RHYTHM - GI/Abdominal Exam GI & Abdominal Exam: Normal Bowel Sounds Assessment and Plan (1) Gait abnormality Status: Acute (2) Patellar fracture Status: Acute (3) Wrist sprain Status: Acute - Assessment and Plan (Free Text) Plan: Cont meds Cont tx Cont PT Discharge plans in am
--- NOTE | 2017-09-29 23:24 | CP.PCM.DIS ---
Provider - Provider Date of Admission: 09/22/17 18:14 Attending physician: Kendall Barahona MD Time Spent in preparation of Discharge (in minutes): 30 Diagnosis - Discharge Diagnosis (1) Gait abnormality Status: Acute (2) Patellar fracture Status: Acute (3) Wrist sprain Status: Acute Hospital Course - Lab Results Lab Results: Most Recent Lab Values WBC 7.5 K/uL (4.8-10.8) 09/26/17 06:25 RBC 4.20 Mil/uL (3.80-5.20) 09/26/17 06:25 Hgb 11.4 g/dL (12.0-16.0) L 09/26/17 06:25 Hct 34.7 % (34.0-47.0) 09/26/17 06:25 MCV 82.5 fl (81.0-99.0) 09/26/17 06:25 MCH 27.2 pg (27.0-31.0) 09/26/17 06:25 MCHC 33.0 g/dL (33.0-37.0) 09/26/17 06:25 RDW 15.4 % (11.5-14.5) H 09/26/17 06:25 Plt Count 380 K/uL (130-400) 09/26/17 06:25 Sodium 133 mmol/l (132-148) 09/26/17 06:25 Potassium 4.5 MMOL/L (3.6-5.0) 09/26/17 06:25 Chloride 94 mmol/L (98-107) L 09/26/17 06:25 Carbon Dioxide 30 mmol/L (22-30) 09/26/17 06:25 Anion Gap 14 (10-20) 09/26/17 06:25 BUN 27 mg/dl (7-17) H 09/26/17 06:25 Creatinine 1.0 mg/dl (0.7-1.2) 09/26/17 06:25 Est GFR ( Amer) > 60 09/26/17 06:25 Est GFR (Non-Af Amer) 53 09/26/17 06:25 POC Glucose (mg/dL) 285 mg/dL (65-110) H 09/29/17 10:38 Random Glucose 105 mg/dL (65-105) 01/26/18 06:25 Calcium 9.2 mg/dL (8.4-10.2) 09/26/17 06:25 - Hospital Course Hospital Course: This is an 82 y/o female who was admitted to TCU for further PT after she was discharged from the medical floor for sprain of the right wrist and fracture of the left patella. She was started on PT and Dr Ramirez was called for consult and suggested no surgery and to continues PT. She was able to achieve all the goals of Pt and was discharged in stable condition and advised follow up with PMD. Discharge Exam - Head Exam Head Exam: NORMAL INSPECTION - Eye Exam Pupil Exam: NORMAL ACCOMODATION - Respiratory Exam Respiratory Exam: Clear to PA & Lateral, NORMAL BREATHING PATTERN - Cardiovascular Exam Cardiovascular Exam: REGULAR RHYTHM - GI/Abdominal Exam GI & Abdominal Exam: Normal Bowel Sounds - Neurological Exam Neurological exam: CN II-XII Intact - Psychiatric Exam Psychiatric exam: Normal Affect, Normal Mood Discharge Plan - Follow Up Plan Condition: GOOD Disposition: HOME/ ROUTINE Instructions: Fall Prevention (DC), Knee Immobilizer (DC) Additional Instructions: followup with Dr. Ricardo Mcmanus, call for appointment to see in one week [phone] Nunez, call for appointment. [phone]. wound care center phone number [phone]. continue to change dressings every other day with annel.
== END 2017-09-29 12:00 | disposition home or self-care (01) | DRG 945 ==
LOC: H.TCU 18:14
PROVIDERS: ADMIT Family Medicine; ATTEND Family Medicine
PROC: F07Z9FZ Gait Training/Functional Ambulation Treatment using Assistive, Adaptive, Supportive or Protective Equipment (ICD-10-PCS; principal; 2017-09-22)
PROC: F07M6FZ Therapeutic Exercise Treatment of Musculoskeletal System - Whole Body using Assistive, Adaptive, Supportive or Protective Equipment (ICD-10-PCS; 2017-09-22)
PROC: F08Z4FZ Home Management Treatment using Assistive, Adaptive, Supportive or Protective Equipment (ICD-10-PCS; 2017-09-22)
DX: S63.501D Unspecified sprain of right wrist, subsequent encounter (principal); L97.919 Non-pressure chronic ulcer of unspecified part of right lower leg with unspecified severity; E11.622 Type 2 diabetes mellitus with other skin ulcer; I48.2 Chronic atrial fibrillation; S82.002D Unspecified fracture of left patella, subsequent encounter for closed fracture with routine healing; R26.9 Unspecified abnormalities of gait and mobility; E78.00 Pure hypercholesterolemia, unspecified; E78.5 Hyperlipidemia, unspecified; I10 Essential (primary) hypertension; I25.10 Atherosclerotic heart disease of native coronary artery without angina pectoris; M81.0 Age-related osteoporosis without current pathological fracture; Z79.01 Long term (current) use of anticoagulants; Z79.84 Long term (current) use of oral hypoglycemic drugs; Z80.0 Family history of malignant neoplasm of digestive organs; Z83.49 Family history of other endocrine, nutritional and metabolic diseases; Z87.891 Personal history of nicotine dependence; Z95.5 Presence of coronary angioplasty implant and graft; D64.9 Anemia, unspecified; W18.30XD Fall on same level, unspecified, subsequent encounter

== ENCOUNTER 2017-11-21 01:00 | Emergency (ER) | payer MEDICARE ==
[2017-11-21 01:00] VITALS: BMI 19.3
[2017-11-21 01:12] VITALS: O2SAT 98
[2017-11-21] MEDS ORDERED: Sodium Chloride 0.9% 500 ML IV STA (01:20)
[2017-11-21] MEDS ORDERED: Morphine 4 MG/ML VIAL IVP ONE ×2 (01:41→03:10)
[2017-11-21] MEDS ORDERED: Morphine 4 MG/ML VIAL ONE ×2 (01:52→03:12)
[2017-11-21 02:30] LABS: ALB/GLOB RATIO 1.3 (1.0-2.1); ALBUMIN 4.4 g/dL (3.5-5.0); ALT/SGPT 36 U/L (9-52); AST/SGOT 26 U/L (14-36); BLOOD UREA NITROGEN 24 mg/dl (7-17); CALCIUM 9.5 mg/dL (8.4-10.2); GFR AFRICAN-AMERICAN > 60; GFR NON-AFRICAN AMERICAN > 60; LIPASE 113 U/L (23-300)
[2017-11-21 02:32] LABS: INR 1.4 (0.9-1.2); PARTIAL THROMBOPLASTIN TIME 33.2 Seconds (25.6-37.1); PROTHROMBIN TIME 15.8 Seconds (9.8-13.1)
--- NOTE | 2017-11-21 02:42 | CT ---
EXAM: CT Head Without Intravenous Contrast EXAM DATE/TIME: 11/21/2017 1:40 AM CLINICAL HISTORY: 82 years old, female; Pain; Headache TECHNIQUE: Axial computed tomography images of the head/brain without intravenous contrast. All CT scans at this facility use one or more dose reduction techniques, viz.: automated exposure control; ma/kV adjustment per patient size (including targeted exams where dose is matched to indication; i.e. head); or iterative reconstruction technique. Coronal and sagittal reformatted images were created and reviewed. COMPARISON: No relevant prior studies available. FINDINGS: There is atrophy. There is chronic small vessel ischemic disease. There is subarachnoid blood within the suprasellar cistern more prominent on the right. There is blood within the ambient cistern more prominent on the left. CTA is recommended to evaluate for possible aneurysm. No intraparenchymal hemorrhage. Mucosal thickening left maxillary sinus. The osseous structures are normal. IMPRESSION: Subarachnoid blood in the suprasellar and ambient cisterns. CTA is recommended to evaluate for possible aneurysm.
[2017-11-21] MEDS ORDERED: Nicardipine 20 MG/200 ML 20 MG/200 ML BAG IV ONE (02:44)
[2017-11-21] MEDS ORDERED: Iodixanol 320 MG/ML 100 ML BOTTLE IV ONE (02:50)
[2017-11-21 03:11] LABS: BASO # 0.1 K/uL (0.0-0.2); BASO % 0.4 % (0.0-2.0); EOS # 0.1 K/uL (0.0-0.7); EOS % 0.9 % (0.0-4.0); HEMOGLOBIN 11.6 g/dL (12.0-16.0); LYMPH # 0.7 K/uL (1.0-4.3); LYMPH % 5.5 % (20.0-40.0); MEAN CELL VOLUME 85.8 fl (81.0-99.0); MEAN CORPUSCULAR HEMOGLOBIN 27.7 pg (27.0-31.0); MEAN CORPUSCULAR HGB CONC 32.3 g/dL (33.0-37.0); MONO # 0.4 K/uL (0.0-0.8); MONO % 3.4 % (0.0-10.0); NEUT # 11.4 K/uL (1.8-7.0); NEUT % 89.8 % (50.0-75.0); NRBC % 0.1 % (0.0-0.0); PLATELET COUNT 244 K/uL (130-400); RBC 4.18 Mil/uL (3.80-5.20); RED CELL DISTRIBUTION WIDTH 17.6 % (11.5-14.5); WHITE BLOOD COUNT 12.7 K/uL (4.8-10.8)
[2017-11-21] MEDS ORDERED: Nicardipine 20 MG/200 ML 20 MG/200 ML BAG ONE ×2 (03:11→06:54)
[2017-11-21 03:17] LABS: URINE BILIRUBIN NEGATIVE (NEGATIVE); URINE BLOOD NEGATIVE (NEGATIVE); URINE CLARITY CLEAR (Clear); URINE COLOR STRAW (YELLOW); URINE GLUCOSE (UA) 150 mg/dL (Normal); URINE LEUKOCYTE ESTERASE NEG Leu/uL (Negative); URINE PROTEIN 30 mg/dL (NEGATIVE); URINE UROBILINOGEN 0.2-1.0 mg/dL (0.2-1.0)
--- NOTE | 2017-11-21 04:02 | ED PDOC ---
HPI:Nausea, Vomiting, Diarrhea Time Seen by Provider: 11/21/17 01:19 Chief Complaint (Nursing): GI Problem Chief Complaint (Provider): GI Problem History Per: Patient History/Exam Limitations: no limitations Onset/Duration Of Symptoms: Hrs (x6) Current Symptoms Are (Timing): Still Present Associated Symptoms: Vomiting, Diarrhea Additional Complaint(s): 82 year old female presents to ED with complaints of persistent vomiting and diarrhea x6 hours and has a past medical history of diabetes mellitus, HTN, and 4 stents. (+) right-sided frontal headache and difficulty opening right eyelid. (-) chest pain, SOB, injury, fall, sycnopal event, or LOC. Of note, patient takes Xarelto and ASA. Patient was recently admitted for subacute rehab for a left patellar fracture. PCP: Ricardo Mcmanus NIHSS Stroke Scale - Date/Time Evaluation Performed Date Performed: 11/21/17 Time Performed: 01:19 When Was NIHSS Performed: Baseline - How Severe is the Stroke Level of Consciousness: 0=Alert LOC to Questions: 0=Both comments correct LOC to commands: 0=Obeys both correctly Best Gaze: 0=Normal Visual: 0=No visual loss Facial: 1=Minor asymmetry Motor Arm - Left: 0=No drift Motor Arm - Right: 0=No drift Motor Leg - Left: 0=No drift Motor Leg - Right: 0=No drift Limb Ataxia: 0=Absent Sensory: 0=Normal Best Language: 0=No aphasia Dysarthia: 0=Normal articulation Extinction & Inattention (Neglect): 0=Normal, no object Score: 1 Past Medical History Reviewed: Historical Data, Nursing Documentation, Vital Signs Vital Signs: Last Vital Signs Temp 96.0 F L 11/21/17 01:04 Pulse 102 H 11/21/17 01:04 Resp 18 11/21/17 01:04 BP 116/74 11/21/17 01:04 Pulse Ox 98 11/21/17 01:04 - Medical History PMH: Anemia, Atrial Fibrillation, HTN, Hypercholesterolemia, Osteoporosis - Family History Family History: States: Unknown Family Hx - Living Arrangements Living Arrangements: Alone - Immunization History Hx Tetanus Toxoid Vaccination: No Hx Influenza Vaccination: No Hx Pneumococcal Vaccination: No - Home Medications Home Medications: Ambulatory Orders Medication Instructions Recorded Alendronate [Fosamax] 70 mg PO SUN 09/17/17 Aspirin [Ecotrin] 81 mg PO HS 09/17/17 Atorvastatin [Lipitor] 40 mg PO HS 09/17/17 Ferrous Sulfate [Feosol] 325 mg PO DAILY 09/17/17 Glucosamine HCl 1,500 mg PO BID 09/17/17 Isosorbide Mononitrate [Imdur] 60 mg PO DAILY 09/17/17 Latanoprost 0.005% Opht [Xalatan 1 drop LEFTEYE HS 09/17/17 Opht] MetFORMIN [glucoPHAGE] 1,000 mg PO BID 09/17/17 Rivaroxaban [Xarelto] 15 mg PO DAILY 09/17/17 Timolol 0.5% Ophth [Timoptic 0.5% 1 drop EACHEYE DAILY 09/17/17 Ophth Soln] Venlafaxine [Effexor XR] 37.5 mg PO DAILY 09/17/17 [id number] CD [Cardizem CD] 240 mg PO DAILY 09/17/17 Collagenase [Santyl] 1 appl TOP DAILY 09/29/17 GlipiZIDE SR [Glucotrol XL] 2.5 mg PO BRK 09/29/17 Metoprolol Tartrate [Lopressor] 25 mg PO Q12 09/29/17 - Allergies Allergies/Adverse Reactions: Allergies Allergy/AdvReac Type Severity Reaction Status Date / Time tuberculin,PPD,multi-puncture Allergy ANAPHYLAXIS Verified 11/21/17 01:12 levetiracetam [From Keppra] AdvReac DIZZINESS Verified 11/21/17 01:12 Review of Systems ROS Statement: Except As Marked, All Systems Reviewed And Found Negative Eyes: Positive for: Other (Right eyelid is difficult to open) Cardiovascular: Negative for: Chest Pain Respiratory: Negative for: Shortness of Breath Gastrointestinal: Positive for: Vomiting, Diarrhea Neurological: Positive for: Headache Physical Exam - Reviewed Nursing Documentation Reviewed: Yes Vital Signs Reviewed: Yes - Physical Exam Appears: Positive for: Non-toxic, No Acute Distress Skin: Positive for: Normal Color, Warm, Dry Eye Exam: Positive for: EOMI, PERRL. Negative for: Normal appearance (ptosis to the right eyelid) Cardiovascular/Chest: Positive for: Regular Rate, Rhythm. Negative for: Murmur Respiratory: Positive for: Normal Breath Sounds. Negative for: Respiratory Distress Gastrointestinal/Abdominal: Positive for: Soft. Negative for: Tenderness Extremity: Positive for: Normal ROM. Negative for: Deformity Neurologic/Psych: Positive for: Alert, Oriented - Laboratory Results Result Diagrams: 11/21/17 03:09 11/21/17 02:18 - ECG O2 Sat by Pulse Oximetry: 98 (RA) Pulse Ox Interpretation: Normal - Critical Care Total Time (In Min): 120 Comments: Multiple re-evals, multiple phone calls. Extensive arrangements for transfer. Medical Decision Making Medical Decision Makin Initial impression: right ptosis, gastroenteritis Initial plan: * EKG * Labs * UDip * PTT/PT * Zofran Inj 4mg IV * NS IV * UA 0140 * CT HEAD * Morphine 4mg IVP 0244 CT HEAD FINDINGS: There is atrophy. There is chronic small vessel ischemic disease. There is subarachnoid blood within the suprasellar cistern more prominent on the right. There is blood within the ambient cistern more prominent on the left. CTA is recommended to evaluate for possible aneurysm. No intraparenchymal hemorrhage. Mucosal thickening left maxillary sinus. The osseous structures are normal. IMPRESSION: Subarachnoid blood in the suprasellar and ambient cisterns. CTA is recommended to evaluate for possible aneurysm. * CT ANGIOGRAPHY HEAD * Cardene IV 0310 * Morphine 4mg IVP 0421 CTA FINDINGS: Atherosclerotic calcifications are present throughout the vasculature. The distal vertebral arteries are patent. The basilar artery is patent. The right posterior cerebral artery is patent. The P1 segment of the left posterior cerebral artery is hypotrophic. The P2 segment of the left posterior cerebral artery is well supplied by the anterior circulation/ posterior communicating artery. The internal carotid arteries are ectatic and contain calcifications. There is no significant stenosis or occlusion. The M1 segments of the middle cerebral arteries are patent. The bifurcation of the left middle cerebral artery is seen on coronal images 85 through 88. The M1 bifurcation is not as well-seen on the right. however opacified insular branches are presen . If there is concern for acute infarct in this region, MRI diffusion weighted imaging could be performed. The anterior cerebral arteries and anterior communicating artery are patent. Again seen is extensive subarachnoid hemorrhage within the suprasellar cistern more prominent on the right and in the ambient cistern more prominent on the left. The left posterior cerebral artery is seen coursing through the left ambient cistern without evidence of contrast extravasation. There is no evidence of contrast extravasation within the suprasellar subarachnoid hemorrhage. Partial opacification of the left maxillary sinus IMPRESSION: Subarachnoid hemorrhage in the suprasellar cistern and ambient cisterns. No aneurysm. Asymmetry in the M2 segments of the middle cerebral artery, being less prominent on the right. If there is concern for acute infarct in this region, MRI diffusion weighted imaging could be performed [address] Carney (neurologist construction trades contractor). Recommends further consultation with neuro interventionalist service. Agrees with the Bindu drip for BP mgmnt. [address] Onofre (neuro-interventionalist). Accepts patient and will return call to further determine where patient will be transferred. 0442 Dr. Carney called back: asks to give 2g Mag Sulfate. [address] Ayala, Dr. Onofre' partner. Accepts case, would like to transfer patient to [facility]. Spoke with patient's daughter, Pushpa, who agreed to transfer. Patient also agreed and signed consent. 0517 Dr. Ayala reports that there is a bed within [facility], but no transport rig from their side. Requests [facility]'s phone number. 0527 Dr. Ayala called back, [facility]'s transfer at 06:15 is adequate as he wants patient at facility before 0800. States that the patient can eat crackers for now. Asks that the patient receives 50mg Vimpat for seizure prophylaxis. 0608 * Vimpat IV Dx: subarachnoid hemorrhage Condition: guarded Scribe Attestation: Documented by Re Castellon acting as a scribe Negro Alicea MD. Scribe Attestation: All medical record entries made by the Scribe were at my direction and personally dictated by me. I have reviewed the chart and agree that the record accurately reflects my personal performance of the history, physical exam, medical decision making, and the department course for this patient. I have also personally directed, reviewed, and agree with the discharge instructions and disposition. Disposition - Clinical Impression Clinical Impression: Subarachnoid hemorrhage, Ptosis - Disposition Referrals: Ricardo Hardy MD [Primary Care Provider] - Disposition: Other Institution Disposition Time: 06:47 Condition: GUARDED Forms: F-Origin (Kazakh)
--- NOTE | 2017-11-21 04:22 | CT ---
EXAM: CT Angiography Head Mip With Intravenous Contrast EXAM DATE/TIME: 11/21/2017 2:44 AM CLINICAL HISTORY: 82 years old, female; Condition or disease; Other: Subarachonid bleed; Additional info: Subarrachnoid bleed TECHNIQUE: Axial computed tomographic angiography images of the head mip with intravenous contrast. All CT scans at this facility use one or more dose reduction techniques, viz.: automated exposure control; ma/kV adjustment per patient size (including targeted exams where dose is matched to indication; i.e. head); or iterative reconstruction technique. MIP reconstructed images were created and reviewed. CONTRAST: 95 mL of [id number] administered intravenously. COMPARISON: CT - HEAD W/O CONTRAST 2017-11-21 01:57 FINDINGS: Atherosclerotic calcifications are present throughout the vasculature. The distal vertebral arteries are patent. The basilar artery is patent. The right posterior cerebral artery is patent. The P1 segment of the left posterior cerebral artery is hypotrophic. The P2 segment of the left posterior cerebral artery is well supplied by the anterior circulation/posterior communicating artery. The internal carotid arteries are ectatic and contain calcifications. There is no significant stenosis or occlusion. The M1 segments of the middle cerebral arteries are patent. The bifurcation of the left middle cerebral artery is seen on coronal images 85 through 88. The M1 bifurcation is not as well-seen on the right. however opacified insular branches are presen . If there is concern for acute infarct in this region, MRI diffusion weighted imaging could be performed. The anterior cerebral arteries and anterior communicating artery are patent. Again seen is extensive subarachnoid hemorrhage within the suprasellar cistern more prominent on the right and in the ambient cistern more prominent on the left. The left posterior cerebral artery is seen coursing through the left ambient cistern without evidence of contrast extravasation. There is no evidence of contrast extravasation within the suprasellar subarachnoid hemorrhage. Partial opacification of the left maxillary sinus IMPRESSION: Subarachnoid hemorrhage in the suprasellar cistern and ambient cisterns. No aneurysm. Asymmetry in the M2 segments of the middle cerebral artery, being less prominent on the right. If there is concern for acute infarct in this region, MRI diffusion weighted imaging could be performed.
[2017-11-21] MEDS ORDERED: Magnesium Sulfate 2 gm/50 ml 2 GM/50 ML BAG IV STA (04:37)
[2017-11-21] MEDS ORDERED: Magnesium Sulfate 2 gm/50 ml 2 GM/50 ML BAG ONE (04:40)
[2017-11-21 05:48] LABS: EOSINOPHIL 1 % (0-7); LYMPHOCYTE 8 % (20-50); MONOCYTE 3 % (0-10); NEUTROPHIL 88 % (42-75); TOTAL CELLS COUNTED 100
[2017-11-21 05:49] LABS: ANISOCYTOSIS SLIGHT; PLATELET ESTIMATE NORMAL (NORMAL)
[2017-11-21 06:06] VITALS: BP 118/61; PULSE 96; RESP 17; TEMP 98.1
[2017-11-21] MEDS ORDERED: LACOSAMIDE IVPB STA (06:08)
[2017-11-21] MEDS ORDERED: SODIUM CHLORIDE 0.9% IVPB STA (06:08)
--- NOTE | 2017-11-21 09:56 | CARD ---
APPROVED REPORT EKG Measurement Heart [id number] <Conclusion> Atrial fibrillation Abnormal ECG
--- NOTE | 2017-11-21 10:15 | RAD ---
HISTORY: chest pain COMPARISON: No prior. FINDINGS: LUNGS: No active pulmonary disease. PLEURA: No significant pleural effusion identified, no pneumothorax apparent. CARDIOVASCULAR: Cardiomegaly is not excluded but frontal technique limits interpretation. No pulmonary vascular derangement appreciable. OSSEOUS STRUCTURES: No significant abnormalities. VISUALIZED UPPER ABDOMEN: Normal. OTHER FINDINGS: None. IMPRESSION: No acute infiltrate, pleural effusion or pneumothorax. Cardiomegaly not excluded. No pulmonary vascular derangement. Yes
== END 2017-11-21 07:20 | disposition short-term general hospital (02) ==
LOC: H.ER 01:00
DX: I60.9 Nontraumatic subarachnoid hemorrhage, unspecified (principal); Z79.84 Long term (current) use of oral hypoglycemic drugs; E11.9 Type 2 diabetes mellitus without complications; Z79.82 Long term (current) use of aspirin; M81.0 Age-related osteoporosis without current pathological fracture; I48.91 Unspecified atrial fibrillation; E78.00 Pure hypercholesterolemia, unspecified
CPT/HCPCS: 70450; 70496; 71045; 80053; 81003; 82948; 83605; 83690; 84484; 85025; 85610; 85730; 93005; 96374; 96375; 96376; 99284; J2270; J2405; J7040; Q9967

== ENCOUNTER 2017-12-05 16:51 | Inpatient (IN) | payer MEDICARE ==
[2017-12-06 12:21] VITALS: BMI 30.8
[2017-12-06] MEDS ORDERED: Insulin Regular 100 units/ml SC SCH ×2 (16:30→17:15)
[2017-12-06] MEDS: Insulin Regular 100 units/ml SC SCH (21:41)
[2017-12-06] MEDS: Latanoprost 0.005% Opht SOUTION OS SCH (21:42)
[2017-12-06] MEDS ORDERED: Insulin Detemir 100 Units/ml Inj SC SCH (22:00)
--- NOTE | 2017-12-06 23:19 | CP.PCM.HP ---
History of Present Illness - History of Present Illness History of Present Illness: This is an 82 y/o female admitted for acute rehab after a CVA.( subarachnoid hemorrhage).She developed a focal deficit of right ptosis. There was no facial palsy. No extremity weakness. Has a history of hypertension, DM 2 osteoporosis She developed a diffused erythematous rash all over body which she claims to have started after a CT scan procedure. Present on Admission - Present on Admission Any Indicators Present on Admission: No History of DVT/PE: No History of Uncontrolled Diabetes: No Urinary Catheter: No Decubitus Ulcer Present: No Past Patient History - Past Medical History & Family History Past Medical History?: Yes - Past Social History Smoking Status: Never Smoked - CARDIAC Hx Atrial Fibrillation: Yes Hx Hypercholesterolemia: Yes Hx Hypertension: Yes Other/Comment: pherepheral neuropathy - NEUROLOGICAL HX Cerebrovascular Accident: Yes - HEENT Hx Cataracts: Yes (both eyes) Other/Comment: ppytosis rt eyetrydium excision with graft left. pytosis rt eye - ENDOCRINE/METABOLIC Hx Diabetes Mellitus Type 2: Yes - HEMATOLOGICAL/ONCOLOGICAL Hx AIDS: No Hx Anemia: Yes Hx Blood Transfusions: Yes Hx Human Immunodeficiency Virus (HIV): No - MUSCULOSKELETAL/RHEUMATOLOGICAL Hx Arthritis: Yes (hands) Hx Falls: Yes Hx Fractures: Yes (left patella ,nose) Hx Osteoporosis: Yes - PSYCHIATRIC Hx Depression: Yes (effexor) Hx Substance Use: No - SURGICAL HISTORY Hx Angioplasty: Yes Other/Comment: trigger finger left hand - ANESTHESIA Hx Anesthesia: No Hx Anesthesia Reactions: No Meds Allergies/Adverse Reactions: Allergies Allergy/AdvReac Type Severity Reaction Status Date / Time tuberculin,PPD,multi-puncture Allergy ANAPHYLAXIS Verified 11/21/17 01:12 levetiracetam [From [facility]] AdvReac DIZZINESS Verified 11/21/17 01:12 Physical Exam - Head Exam Head Exam: NORMAL INSPECTION - Eye Exam Eye Exam: Normal appearance - ENT Exam ENT Exam: Mucous Membranes Moist - Respiratory Exam Respiratory Exam: Clear to Auscultation Bilateral, NORMAL BREATHING PATTERN - Cardiovascular Exam Cardiovascular Exam: REGULAR RHYTHM - GI/Abdominal Exam GI & Abdominal Exam: Normal Bowel Sounds - Neurological Exam Neurological exam: Alert, Normal Gait, Oriented x3 Additional comments: ptosis right - Skin Skin Exam: Erythema, Rash Results - Vital Signs Recent Vital Signs: Last Vital Signs Temp 97.7 F 12/06/17 20:00 Pulse 80 12/06/17 21:40 Resp 19 12/06/17 20:00 BP 159/86 H 12/06/17 21:40 Pulse Ox 99 12/06/17 20:00 - Labs Result Diagrams: 12/09/17 05:30 12/09/17 05:30 Labs: Laboratory Results - last 24 hr 12/06/17 12/06/17 16:28 21:03 POC Glucose (mg/dL) 152 H 127 H Assessment & Plan (1) Ptosis Status: Acute (2) Subarachnoid hemorrhage Status: Acute (3) Hypertension Status: Acute (4) Diabetes mellitus type 2 in nonobese Status: Acute (5) Drug allergy Status: Acute - Assessment and Plan (Free Text) Plan: start PT Bp meds start iv solumedrol and benadryl cont diabetic meds.
[2017-12-07] MEDS: Insulin Regular 100 units/ml SC SCH ×4 (06:37→21:04)
[2017-12-07 07:52] LABS: HEMOGLOBIN 10.6 g/dL (12.0-16.0); MEAN CELL VOLUME 86.7 fl (81.0-99.0); MEAN CORPUSCULAR HEMOGLOBIN 28.6 pg (27.0-31.0); RBC 3.7 Mil/uL (3.80-5.20); RED CELL DISTRIBUTION WIDTH 17.8 % (11.5-14.5); WHITE BLOOD COUNT 7.6 K/uL (4.8-10.8)
[2017-12-07 08:10] LABS: PROTHROMBIN TIME 11.6 Seconds (9.8-13.1)
[2017-12-07 08:11] LABS: ALBUMIN 2.8 g/dL (3.5-5.0); ALT/SGPT 48 U/L (9-52); AST/SGOT 40 U/L (14-36); BLOOD UREA NITROGEN 15 mg/dl (7-17); CALCIUM 8.7 mg/dL (8.4-10.2); GFR AFRICAN-AMERICAN > 60; GFR NON-AFRICAN AMERICAN 60
--- NOTE | 2017-12-07 09:44 | CP.PCM.CON ---
History of Present Illness - History of Present Illness History of Present Illness: 82 year old female admitted with diagnosis of CVA secondary to subarachnoid hge , with PMH of HTn, Cad, peripheral neuropathy, elevated cholestrol Review of Systems - Musculoskeletal Musculoskeletal: Muscle Weakness - Neurological Neurological: Abnormal Gait, Weakness, Other Visual Disturbances Past Patient History - Past Medical History & Family History Past Medical History?: Yes - Past Social History Smoking Status: Never Smoked - CARDIAC Hx Atrial Fibrillation: Yes Hx Hypercholesterolemia: Yes Hx Hypertension: Yes Other/Comment: pherepheral neuropathy - NEUROLOGICAL HX Cerebrovascular Accident: Yes - HEENT Hx Cataracts: Yes (both eyes) Other/Comment: ppytosis rt eyetrydium excision with graft left. pytosis rt eye - ENDOCRINE/METABOLIC Hx Diabetes Mellitus Type 2: Yes - HEMATOLOGICAL/ONCOLOGICAL Hx AIDS: No Hx Anemia: Yes Hx Blood Transfusions: Yes Hx Human Immunodeficiency Virus (HIV): No - MUSCULOSKELETAL/RHEUMATOLOGICAL Hx Arthritis: Yes (hands) Hx Falls: Yes Hx Fractures: Yes (left patella ,nose) Hx Osteoporosis: Yes - PSYCHIATRIC Hx Depression: Yes (effexor) Hx Substance Use: No - SURGICAL HISTORY Hx Angioplasty: Yes Other/Comment: trigger finger left hand - ANESTHESIA Hx Anesthesia: No Hx Anesthesia Reactions: No Meds Allergies/Adverse Reactions: Allergies Allergy/AdvReac Type Severity Reaction Status Date / Time tuberculin,PPD,multi-puncture Allergy ANAPHYLAXIS Verified 11/21/17 01:12 levetiracetam [From [facility]] AdvReac DIZZINESS Verified 11/21/17 01:12 - Medications Medications: Current Medications Alendronate Sodium (Fosamax) 70 mg PO SUN [facility] Apixaban (Eliquis) 2.5 mg PO BID [facility] PRN Reason: Protocol Last Admin: 12/06/17 17:33 Dose: 2.5 mg Atorvastatin Calcium (Lipitor) 40 mg PO HS [facility] Last Admin: 12/06/17 21:40 Dose: 40 mg Diltiazem HCl (Cardizem Cd) 120 mg PO DAILY [facility] Ferrous Sulfate (Feosol) 325 mg PO DAILY [facility] Glipizide (Glucotrol Xl) 2.5 mg PO BRK [facility] Home Med (Glucosamine Hcl [Glucosamine Hcl]) 1,500 mg PO BID [facility] Insulin Human Regular (Humulin R) 0 units SC ACHS [facility] Last Admin: 12/07/17 06:37 Dose: 6 units Isosorbide Mononitrate (Imdur) 60 mg PO DAILY [facility] Latanoprost (Xalatan Opht) 1 drop OS HS [facility] Last Admin: 12/06/17 21:42 Dose: 1 drop Magnesium Oxide (Mag-Ox) 400 mg PO DAILY [facility] Metoprolol Tartrate (Lopressor) 25 mg PO Q12 [facility] Last Admin: 12/06/17 21:40 Dose: 25 mg Timolol Maleate (Timoptic 0.5% Ophth Soln) 1 drop OU DAILY [facility] Venlafaxine HCl (Effexor Xr) 37.5 mg PO DAILY [facility] Physical Exam - Head Exam Head Exam: ATRAUMATIC, NORMAL INSPECTION, NORMOCEPHALIC - Eye Exam Eye Exam: Normal appearance, PERRL Additional comments: problems with vision - ENT Exam ENT Exam: Mucous Membranes Moist - Neck Exam Neck exam: Positive for: Normal Inspection - Respiratory Exam Respiratory Exam: Clear to Auscultation Bilateral, NORMAL BREATHING PATTERN - Cardiovascular Exam Cardiovascular Exam: REGULAR RHYTHM - GI/Abdominal Exam GI & Abdominal Exam: Normal Bowel Sounds - Rectal Exam Rectal Exam: NORMAL INSPECTION - Exam External exam: NORMAL EXTERNAL EXAM - Back Exam Back exam: NORMAL INSPECTION - Neurological Exam Neurological exam: Alert, Oriented x3 Additional comments: problems with balance , coordination - Psychiatric Exam Psychiatric exam: Normal Affect, Normal Mood - Skin Skin Exam: Normal Color Results - Vital Signs Recent Vital Signs: Last Vital Signs Temp 98.0 F 12/07/17 08:56 Pulse 78 12/07/17 08:56 Resp 20 12/07/17 08:56 BP 143/68 12/07/17 08:56 Pulse Ox 98 12/07/17 08:56 - Labs Result Diagrams: 12/07/17 06:20 12/07/17 06:20 Labs: Laboratory Results - last 24 hr 12/06/17 12/06/17 12/07/17 16:28 21:03 06:15 WBC RBC Hgb Hct MCV MCH MCHC RDW Plt Count PT INR Sodium Potassium Chloride Carbon Dioxide Anion Gap BUN Creatinine Est GFR ( Amer) Est GFR (Non-Af Amer) POC Glucose (mg/dL) 152 H 127 H 206 H Random Glucose Calcium Total Bilirubin AST ALT Alkaline Phosphatase Total Protein Albumin Globulin Albumin/Globulin Ratio 12/07/17 12/07/17 12/07/17 06:20 06:20 06:20 WBC 7.6 RBC 3.70 L Hgb 10.6 L Hct 32.1 L MCV 86.7 MCH 28.6 MCHC 33.0 RDW 17.8 H Plt Count 570 H D PT 11.6 INR 1.0 Sodium 135 Potassium 4.8 Chloride 102 Carbon Dioxide 21 L Anion Gap 17 BUN 15 Creatinine 0.9 Est GFR ( Amer) > 60 Est GFR (Non-Af Amer) 60 POC Glucose (mg/dL) Random Glucose 209 H Calcium 8.7 Total Bilirubin 0.2 AST 40 H D ALT 48 Alkaline Phosphatase 59 Total Protein 5.7 L Albumin 2.8 L D Globulin 2.8 Albumin/Globulin Ratio 1.0 Assessment & Plan (1) Ankle injury Status: Acute (2) Gait abnormality Status: Acute (3) Leg swelling Status: Acute (4) Patellar fracture Status: Acute (5) Physical deconditioning Status: Acute (6) Ptosis Status: Acute (7) Subarachnoid hemorrhage Assessment and Plan: plan for physical, occupatioanl, rec and speech therapy for range of motion, strenghtening,transfers and gait training. to write overall plan of care. Covering for Dr Prince Status: Acute (8) Wrist sprain Status: Acute
--- NOTE | 2017-12-07 09:51 | PCM.OPOC ---
Physiatry Overall Plan of Care - Overall Plan of Care Rehab Impairment: Mobility, Gait, Cognition, Balance, Coordination Etiologic Diagnosis: Cerebrovascular Accident Rehab/Medical Prognosis: Fair - Anticipated Interventions Physical Therapy:: Yes Occupational Therapy:: Yes Speech Therapy:: Yes Recreational Therapy:: Yes - Therapy Goals Bed Mobility: Independent Ambulation: Supervision Functional Positional Changes:: Independent - Functional Outcomes Functional Outcomes: fair - Discharge Plan Identification of Barriers to Discharge: Cognition Discharge Destination: Home
[2017-12-07] MEDS: diltiaZEM 120 mg/24 Hours CD Cap PO SCH (09:54)
[2017-12-07] MEDS: GlipiZIDE 2.5 mg SR Tab PO SCH (10:00)
[2017-12-07] MEDS: ALENDRONATE 70 MG TAB PO SCH (10:00)
[2017-12-07] MEDS: Magnesium Oxide 400 mg Tab UD PO SCH (10:01)
[2017-12-07] MEDS: Venlafaxine 37.5 mg ER Cap PO SCH (10:15)
--- NOTE | 2017-12-07 11:07 | CP.PCM.CON ---
History of Present Illness - History of Present Illness History of Present Illness: 82 yr old woman who was found on 11/21/17 to have a suprasellar and ambient cistern subarachnoid hemorrhage, with resulting underlying stroke, transferred to [facility] for care, who is here now for rehab. She has a pmh of DM1, hypertension , cad s/p stenting, afib on xarelto, and peripheral neuropathy. The headahe started on 11/20/17 after fide patient had dinner and had a severe headache, progressing to lright eye ptosis and lblurred vision. There were no aneurysms found on CTA and conventional angiogram done in [facility] showed no aneurysm, but dysplastic Right MCA and basilar arteries. PMH/PSH: as above FH/SH: . no tobacco, no etoh. All: keppra on exam: aaxox3. pupils 3mm-2mm with light. right CN 3 lesion, with complete ptosis. All other cranial nerves normal. motor, sensory exam normal, with no deficits. +2 dtr ul and ll bl. toes downgoing. No clonus Gait normal. no ataxia. Past Patient History - Past Medical History & Family History Past Medical History?: Yes - Past Social History Smoking Status: Never Smoked - CARDIAC Hx Atrial Fibrillation: Yes Hx Hypercholesterolemia: Yes Hx Hypertension: Yes Other/Comment: pherepheral neuropathy - NEUROLOGICAL HX Cerebrovascular Accident: Yes - HEENT Hx Cataracts: Yes (both eyes) Other/Comment: ppytosis rt eyetrydium excision with graft left. pytosis rt eye - ENDOCRINE/METABOLIC Hx Diabetes Mellitus Type 2: Yes - HEMATOLOGICAL/ONCOLOGICAL Hx AIDS: No Hx Anemia: Yes Hx Blood Transfusions: Yes Hx Human Immunodeficiency Virus (HIV): No - MUSCULOSKELETAL/RHEUMATOLOGICAL Hx Arthritis: Yes (hands) Hx Falls: Yes Hx Fractures: Yes (left patella ,nose) Hx Osteoporosis: Yes - PSYCHIATRIC Hx Depression: Yes (effexor) Hx Substance Use: No - SURGICAL HISTORY Hx Angioplasty: Yes Other/Comment: trigger finger left hand - ANESTHESIA Hx Anesthesia: No Hx Anesthesia Reactions: No Meds Allergies/Adverse Reactions: Allergies Allergy/AdvReac Type Severity Reaction Status Date / Time tuberculin,PPD,multi-puncture Allergy ANAPHYLAXIS Verified 11/21/17 01:12 levetiracetam [From [facility]] AdvReac DIZZINESS Verified 11/21/17 01:12 - Medications Medications: Current Medications Alendronate Sodium (Fosamax) 70 mg PO SUN [facility] Last Admin: 12/07/17 10:00 Dose: 70 mg Apixaban (Eliquis) 2.5 mg PO BID [facility] PRN Reason: Protocol Last Admin: 12/07/17 10:00 Dose: 2.5 mg Atorvastatin Calcium (Lipitor) 40 mg PO HS [facility] Last Admin: 12/06/17 21:40 Dose: 40 mg Diltiazem HCl (Cardizem Cd) 120 mg PO DAILY [facility] Last Admin: 12/07/17 09:54 Dose: 120 mg Ferrous Sulfate (Feosol) 325 mg PO DAILY [facility] Last Admin: 12/07/17 10:00 Dose: 325 mg Glipizide (Glucotrol Xl) 2.5 mg PO BRK [facility] Last Admin: 12/07/17 10:00 Dose: 2.5 mg Home Med (Glucosamine Hcl [Glucosamine Hcl]) 1,500 mg PO BID [facility] Insulin Human Regular (Humulin R) 0 units SC [facility] Last Admin: 12/07/17 06:37 Dose: 6 units Isosorbide Mononitrate (Imdur) 60 mg PO DAILY [facility] Last Admin: 12/07/17 10:01 Dose: 60 mg Latanoprost (Xalatan Opht) 1 drop OS HS [facility] Last Admin: 12/06/17 21:42 Dose: 1 drop Magnesium Oxide (Mag-Ox) 400 mg PO DAILY [facility] Last Admin: 12/07/17 10:01 Dose: 400 mg Metoprolol Tartrate (Lopressor) 25 mg PO Q12 [facility] Last Admin: 12/07/17 10:01 Dose: 25 mg Timolol Maleate (Timoptic 0.5% Ophth Soln) 1 drop OU DAILY [facility] Last Admin: 12/07/17 10:18 Dose: 1 drop Venlafaxine HCl (Effexor Xr) 37.5 mg PO DAILY [facility] Last Admin: 12/07/17 10:15 Dose: 37.5 mg Results - Vital Signs Recent Vital Signs: Last Vital Signs Temp 98.0 F 12/07/17 08:56 Pulse 78 12/07/17 10:01 Resp 20 12/07/17 08:56 BP 130/61 12/07/17 10:01 Pulse Ox 98 12/07/17 08:56 - Labs Result Diagrams: 12/07/17 06:20 12/07/17 06:20 Labs: Laboratory Results - last 24 hr 12/06/17 12/06/17 12/07/17 16:28 21:03 06:15 WBC RBC Hgb Hct MCV MCH MCHC RDW Plt Count PT INR Sodium Potassium Chloride Carbon Dioxide Anion Gap BUN Creatinine Est GFR ( Amer) Est GFR (Non-Af Amer) POC Glucose (mg/dL) 152 H 127 H 206 H Random Glucose Calcium Total Bilirubin AST ALT Alkaline Phosphatase Total Protein Albumin Globulin Albumin/Globulin Ratio 12/07/17 12/07/17 12/07/17 06:20 06:20 06:20 WBC 7.6 RBC 3.70 L Hgb 10.6 L Hct 32.1 L MCV 86.7 MCH 28.6 MCHC 33.0 RDW 17.8 H Plt Count 570 H D PT 11.6 INR 1.0 Sodium 135 Potassium 4.8 Chloride 102 Carbon Dioxide 21 L Anion Gap 17 BUN 15 Creatinine 0.9 Est GFR ( Amer) > 60 Est GFR (Non-Af Amer) 60 POC Glucose (mg/dL) Random Glucose 209 H Calcium 8.7 Total Bilirubin 0.2 AST 40 H D ALT 48 Alkaline Phosphatase 59 Total Protein 5.7 L Albumin 2.8 L D Globulin 2.8 Albumin/Globulin Ratio 1.0 - Imaging and Cardiology CT scan - head Additional comment: ct head recent has not been repeated. Assessment & Plan - Assessment and Plan (Free Text) Assessment: 82 yr old woman s/p subarachnoid bleed in suprasellar cistern with CN3 affected, now stable on eliquiis for afib. She is very stable neurologically but i feel that repeat CT scan head would be helpful. no aeds at this time. PLan: 1. CT head without contrast 2. Continue rehab 3. Recommend outpatient plastic surgery for correction of right eyelid ptosis. Thankyou for this consult. Our team will follow Dr. Shahla Saenz [facility] neurology
--- NOTE | 2017-12-07 20:12 | CP.PCM.PN ---
Subjective - Date & Time of Evaluation Date of Evaluation: 12/07/17 Time of Evaluation: 14:00 - Subjective Subjective: patient continues to do well Still with difficulty opening right eye. Has no facial palsy Objective - Vital Signs/Intake and Output Vital Signs (last 24 hours): Temp Pulse Resp BP Pulse Ox 98.0 F 78 20 130/61 98 12/07/17 08:56 12/07/17 10:01 12/07/17 08:56 12/07/17 10:01 12/07/17 08:56 - Medications Medications: Current Medications Alendronate Sodium (Fosamax) 70 mg PO SUN [facility] Last Admin: 12/07/17 10:00 Dose: 70 mg Apixaban (Eliquis) 2.5 mg PO BID [facility] PRN Reason: Protocol Last Admin: 12/07/17 17:49 Dose: 2.5 mg Atorvastatin Calcium (Lipitor) 40 mg PO HS [facility] Last Admin: 12/06/17 21:40 Dose: 40 mg Diltiazem HCl (Cardizem Cd) 120 mg PO DAILY [facility] Last Admin: 12/07/17 09:54 Dose: 120 mg Ferrous Sulfate (Feosol) 325 mg PO DAILY [facility] Last Admin: 12/07/17 10:00 Dose: 325 mg Glipizide (Glucotrol Xl) 2.5 mg PO BRK [facility] Last Admin: 12/07/17 10:00 Dose: 2.5 mg Home Med (Glucosamine Hcl [Glucosamine Hcl]) 1,500 mg PO BID [facility] Insulin Human Regular (Humulin R) 0 units SC [facility] Last Admin: 12/07/17 17:49 Dose: Not Given Isosorbide Mononitrate (Imdur) 60 mg PO DAILY [facility] Last Admin: 12/07/17 10:01 Dose: 60 mg Latanoprost (Xalatan Opht) 1 drop OS HS [facility] Last Admin: 12/06/17 21:42 Dose: 1 drop Magnesium Oxide (Mag-Ox) 400 mg PO DAILY [facility] Last Admin: 12/07/17 10:01 Dose: 400 mg Metoprolol Tartrate (Lopressor) 25 mg PO Q12 [facility] Last Admin: 12/07/17 10:01 Dose: 25 mg Timolol Maleate (Timoptic 0.5% Ophth Soln) 1 drop OU DAILY [facility] Last Admin: 12/07/17 10:18 Dose: 1 drop Venlafaxine HCl (Effexor Xr) 37.5 mg PO DAILY [facility] Last Admin: 12/07/17 10:15 Dose: 37.5 mg - Labs Labs: 12/07/17 06:20 12/07/17 06:20 PT 11.6 Seconds (9.8-13.1) 12/07/17 06:20 INR 1.0 (0.9-1.2) 12/07/17 06:20 - Head Exam Head Exam: NORMAL INSPECTION - Eye Exam Eye Exam: Normal appearance - Respiratory Exam Respiratory Exam: Clear to Ausculation Bilateral - Cardiovascular Exam Cardiovascular Exam: REGULAR RHYTHM - GI/Abdominal Exam GI & Abdominal Exam: Normal Bowel Sounds - Neurological Exam Neurological Exam: CN II-XII Intact, Oriented x3 Additional comments: inability to open right eye, complete paralysis of right upper lid Assessment and Plan (1) Ptosis Status: Acute (2) Subarachnoid hemorrhage Status: Acute - Assessment and Plan (Free Text) Plan: cont meds cont tx PT cont all meds.
[2017-12-07] MEDS: Latanoprost 0.005% Opht SOUTION OS SCH (21:04)
[2017-12-08] MEDS: Insulin Regular 100 units/ml SC SCH (06:39)
[2017-12-08] MEDS: GLUCOSAMINE HCL 750 MG PO SCH ×4 (08:13→16:43)
[2017-12-08] MEDS: diltiaZEM 120 mg/24 Hours CD Cap PO SCH (08:17)
[2017-12-08] MEDS: Venlafaxine 37.5 mg ER Cap PO SCH (08:17)
[2017-12-08] MEDS: GlipiZIDE 2.5 mg SR Tab PO SCH (08:19)
[2017-12-08] MEDS: Magnesium Oxide 400 mg Tab UD PO SCH (08:19)
--- NOTE | 2017-12-08 10:39 | CT ---
PROCEDURE: CT HEAD WITHOUT CONTRAST. HISTORY: subarachnoid hemorrhage COMPARISON: CT head dated 11/21/2017. TECHNIQUE: Axial computed tomography images were obtained through the head/brain without intravenous contrast. Radiation dose: Total exam DLP = 765.5 mGy-cm. This CT exam was performed using one or more of the following dose reduction techniques: Automated exposure control, adjustment of the mA and/or kV according to patient size, and/or use of iterative reconstruction technique. FINDINGS: HEMORRHAGE: Subarachnoid hemorrhage has resolved. No intracranial hemorrhage. BRAIN: No mass effect or edema. Atrophy. Chronic microvascular ischemic changes. Left basal ganglia lacunar infarction. VENTRICLES: Prominent. No hydrocephalus. CALVARIUM: Unremarkable. PARANASAL SINUSES: Unremarkable as visualized. No significant inflammatory changes. MASTOID AIR CELLS: Unremarkable as visualized. No inflammatory changes. OTHER FINDINGS: None. IMPRESSION: Resolution of his previously described subarachnoid hemorrhage. No acute intracranial pathology.
--- NOTE | 2017-12-08 19:24 | CP.PCM.PN ---
Subjective - Date & Time of Evaluation Date of Evaluation: 12/08/17 Time of Evaluation: 19:23 - Subjective Subjective: Patient seen in the room doing ok good strength in the UE right eye still with reduced vision denies N/V or chest pain stable and appreciates her improvement in therapies to this point Objective - Vital Signs/Intake and Output Vital Signs (last 24 hours): Temp Pulse Resp BP Pulse Ox 97.9 F 94 H 20 143/76 99 12/08/17 10:00 12/08/17 10:00 12/08/17 10:00 12/08/17 10:00 12/08/17 10:00 - Medications Medications: Current Medications Alendronate Sodium (Fosamax) 70 mg PO SUN [facility] Last Admin: 12/07/17 10:00 Dose: 70 mg Apixaban (Eliquis) 2.5 mg PO BID [facility] PRN Reason: Protocol Last Admin: 12/08/17 16:44 Dose: 2.5 mg Atorvastatin Calcium (Lipitor) 40 mg PO HS [facility] Last Admin: 12/07/17 21:03 Dose: 40 mg Diltiazem HCl (Cardizem Cd) 120 mg PO DAILY [facility] Last Admin: 12/08/17 08:17 Dose: 120 mg Diphenhydramine HCl (Benadryl) 50 mg PO HS PRN PRN Reason: Itching / Pruritus Ferrous Sulfate (Feosol) 325 mg PO DAILY [facility] Last Admin: 12/08/17 08:18 Dose: 325 mg Glipizide (Glucotrol Xl) 2.5 mg PO BRK [facility] Last Admin: 12/08/17 08:19 Dose: 2.5 mg Home Med (Glucosamine Hcl [Glucosamine Hcl]) 750 mg PO BID [facility] Last Admin: 12/08/17 16:43 Dose: 750 mg Hydrocortisone (Hydrocortisone 2.5%) 1 applic TOP Q12 [facility] Insulin Human Regular (Humulin R) 0 units SC 0630 [facility] Isosorbide Mononitrate (Imdur) 60 mg PO DAILY [facility] Last Admin: 12/08/17 08:19 Dose: 60 mg Latanoprost (Xalatan Opht) 1 drop OS HS [facility] Last Admin: 12/07/17 21:04 Dose: 1 drop Magnesium Oxide (Mag-Ox) 400 mg PO DAILY [facility] Last Admin: 12/08/17 08:19 Dose: 400 mg Metformin HCl (Glucophage) 1,000 mg PO BID [facility] Last Admin: 12/08/17 16:43 Dose: 1,000 mg Metoprolol Tartrate (Lopressor) 25 mg PO Q12 [facility] Last Admin: 12/08/17 08:19 Dose: 25 mg Pantoprazole Sodium (Protonix Ec Tab) 40 mg PO 0630 [facility] Timolol Maleate (Timoptic 0.5% [facility]) 1 drop OU DAILY [facility] Last Admin: 12/08/17 08:17 Dose: 1 drop Venlafaxine HCl (Effexor Xr) 37.5 mg PO DAILY [facility] Last Admin: 12/08/17 08:17 Dose: 37.5 mg - Labs Labs: 12/07/17 06:20 12/07/17 06:20 PT 11.6 Seconds (9.8-13.1) 12/07/17 06:20 INR 1.0 (0.9-1.2) 12/07/17 06:20
[2017-12-08] MEDS: Latanoprost 0.005% Opht SOUTION OS SCH (21:13)
[2017-12-09 06:21] LABS: HEMOGLOBIN 9.6 g/dL (12.0-16.0); MEAN CELL VOLUME 87.3 fl (81.0-99.0); MEAN CORPUSCULAR HEMOGLOBIN 28.4 pg (27.0-31.0); MEAN CORPUSCULAR HGB CONC 32.5 g/dL (33.0-37.0); RBC 3.38 Mil/uL (3.80-5.20); RED CELL DISTRIBUTION WIDTH 18.2 % (11.5-14.5); WHITE BLOOD COUNT 8.7 K/uL (4.8-10.8)
[2017-12-09] MEDS: Pantoprazole 40 mg EC Tab PO SCH (06:23)
[2017-12-09] MEDS ORDERED: Pantoprazole 40 mg EC Tab PO SCH (06:30)
[2017-12-09 06:36] LABS: ALB/GLOB RATIO 1.1 (1.0-2.1); ALBUMIN 3.1 g/dL (3.5-5.0); ALT/SGPT 47 U/L (9-52); AST/SGOT 29 U/L (14-36); BLOOD UREA NITROGEN 22 mg/dl (7-17); CALCIUM 9.1 mg/dL (8.4-10.2); GFR AFRICAN-AMERICAN > 60; GFR NON-AFRICAN AMERICAN 53
[2017-12-09] MEDS: Insulin Regular 100 units/ml SC SCH (07:07)
[2017-12-09] MEDS: Venlafaxine 37.5 mg ER Cap PO SCH (08:28)
[2017-12-09] MEDS: diltiaZEM 120 mg/24 Hours CD Cap PO SCH (08:29)
[2017-12-09] MEDS: Magnesium Oxide 400 mg Tab UD PO SCH (08:31)
[2017-12-09] MEDS: GLUCOSAMINE HCL 750 MG PO SCH ×2 (08:31→17:17)
[2017-12-09] MEDS: GlipiZIDE 2.5 mg SR Tab PO SCH (08:31)
[2017-12-09] MEDS: GlipiZIDE 5 mg SR Tab PO SCH ×2 (09:53→17:18)
--- NOTE | 2017-12-09 13:20 | PSY.TMCNF ---
Nursing - Vital Signs Vital Signs (Last 8 hours): Vital Signs 12/09/17 12/09/17 12/09/17 08:28 08:29 08:30 Temperature 98.1 F Pulse Rate 70 77 93 H Respiratory 20 Rate Blood Pressure 132/77 132/77 132/77 O2 Sat by Pulse 100 Oximetry 12/09/17 09:00 Temperature 98.1 F Pulse Rate 93 H Respiratory 20 Rate Blood Pressure 132/77 O2 Sat by Pulse Oximetry - Medications/Other Issues Comment: To follow as per nutrition protocol - Bladder Management Bladder Pattern: Normal Voiding Method: Toilet - Bowel Management Bowel Pattern: Normal - Goals/Time Frame Comments: Pt was seen awake and alert laying in bed in her room. Pt agreeable to evaluation visit. Pt was able to identify her leisure interests such as art, reading, traveling, and spending time with family. Pt reported that she enjoys mounting photos on the side and that she knows 4 languages. Pt reported she enjoys traveling and her goal is to travel again within a year or two depending on her medical state. Pt was engaged in discussion about traveling and her hobbies. Pt stated that she has visual deficits with the R eye as it will open at times. Pt would benefit from participating in recreation therapy sessions to improve attention to task and arousal level. Pt's mood leighton stable-positive throughout visit. Physical Therapy - Bed Mobility Bed Mobility: Supervision, Verbal Cues, Contact Guard Comment: CG/CS. HOB elevated w/ bed rail bed mob, occ CG needed for to complete task - Transfers Wheelchair to Mat: Verbal Cues, Contact Guard Sit to Stand: Verbal Cues, Contact Guard Comment: vc for hand placement for t/f - Ambulation Level of Assistance: Verbal Cues, Contact Guard Distance (ft.): 150 Assistive Devices: N/A Comment: x2, 75' x 2, 250' x 1 w/o AD. wide COLBY, mildly unsteady when navigating turns/obstacles/close quarters, decr'd step/stride length, decr'd gait speed, decr'd reciprocal arm swing (pt tends to keep B shldrs slightly abducted during gait). occ LOB to R w/ CG to recover when navigating obstacles or turns - Stair Negotiation Stairs: Level of Assistance: Verbal Cues, Contact Guard, Minimal Assistance Number of Stairs: 11 Stairs: Assistive Devices: Right Handrail Comment: 8 in steps. B UE on R HR, step to pattern (pt states this is her PLOF strategy for stairs - pt has 29 steps at home), asc w/ R, decr'd w/ L (pt preference) - Standing Balance Static Stand: Supervision Dynamic Stand: Contact Guard Assist, Minimal Assistance - Pain Pain (assessed during therapy session): 0 - Insight/Carryover Insight/Carryover: Good - Patient/Family Education Comment: CVA related recovery topics, safety, fxnl mob, balance, vision, posture , rehab goals, POC, benefits of being OOB - Assessment/Plan Assessment: 82 yo female presenting to [facility] s/ acute CVA. pt presents with ptosis R eye, unsteadiness on feet, impaired standing balance, impaired act tolerance and generalized weakness impacting her ability to complete her self care routine safely and effectivley. pt is doing well so far and progressing towards goals . she is able to complete lb self care with cga , transfers and mobiltiy with cga w/o an AD. Tricia warrenkameron skilled OT services 5-6x/week to improve aforementioned defecits. - Goals Timeframe: 2 weeks Goals: MOD I. -transfers. -tub transfer using shower chair. -improve act tolerance to 10 mins during adl. -toileting tasks - Provider License Number: [id number] Occupational Therapy - Arousal/Attention/Orientation Level of Consciousness: Awake, Alert Patient Orientation: Person, Place, Time, Appropriate to Age, Appropriate to Situation - ADL/IADL Self Feeding: Set-up Help Grooming: Set-up Help Dressing-Upper Extremity: Minimal Assistance Dressing-Lower Extremity: Minimal Assistance - Sitting Balance Static Sitting: Independent without upper extremity support Dynamic Sitting: Requires supervision - Transfers Wheelchair to Bed Transfers: Contact Guard Toilet Transfers: Contact Guard Comment: tub/shower transfers TBA - Upper Extremity Status Right Upper Extremity Comment: WFL Left Upper Extremity Comment: WFL - Pain Pain (assessed during therapy session): 0 - Insight/Carryover Insight/Carryover: Good - Patient/Family Education Comment: CVA related recovery topics, safety, fxnl mob, balance, vision, posture , rehab goals, POC, benefits of being OOB - Assessment/Plan Assessment: 82 yo female presenting to [facility] s/ acute CVA. pt presents with ptosis R eye, unsteadiness on feet, impaired standing balance, impaired act tolerance and generalized weakness impacting her ability to complete her self care routine safely and effectivley. pt is doing well so far and progressing towards goals . she is able to complete lb self care with cga , transfers and mobiltiy with cga w/o an AD. Reccommend skileld skilled OT services 5-6x/week to improve aforementioned defecits. - Goals Timeframe: 2 weeks Goals: MOD I. -transfers. -tub transfer using shower chair. -improve act tolerance to 10 mins during adl. -toileting tasks - Provider Therapist: Jazz Jean OTR/L License Number: [id number] Speech Therapy - Plan Assessment: 82 yo female presenting to [facility] acute CVA. pt presents with ptosis R eye, unsteadiness on feet, impaired standing balance, impaired act tolerance and generalized weakness impacting her ability to complete her self care routine safely and effectivley. pt is doing well so far and progressing towards goals . she is able to complete lb self care with cga , transfers and mobiltiy with cga w/o an AD. Reccommend [facility] skilled OT services 5-6x/week to improve aforementioned defecits. Recreational Therapy - Participation Participation: Participates in Individual and/or Group Sessions - Attendance Attendance: 3-5 times per week - Activities Leisure Activities: Reading - Socialization Level of Socialization: Initiates/interacts freely with care givers and peer - Diversional Time Diversional Time: reading, watching television - Assessment Assessment/Plan: 82 yo female presenting to [facility] acute CVA. pt presents with ptosis R eye, unsteadiness on feet, impaired standing balance, impaired act tolerance and generalized weakness impacting her ability to complete her self care routine safely and effectivley. pt is doing well so far and progressing towards goals . she is able to complete lb self care with cga , transfers and mobiltiy with cga w/o an AD. Reccommend [facility] skilled OT services 5-6x/week to improve aforementioned defecits. - Provider Therapist: Dinora Zapata, [employer] #[id number] Nutrition - Current Diet Current Diet/ Supplement/ Feedings: Moderate consistent CHO Heart healthy Soft thin liquids - Appetite Percent Meal Consumed: 50-74% - Assessment/Goals/Time Frame Assessment/Goals/Time Frame: To follow as per nutrition protocol - Provider Provider: Ignacia Delvalle RD Rehabilitation Plan - Discharge Plan Discharge to: Home
--- NOTE | 2017-12-09 13:32 | CP.PCM.PN ---
Subjective - Date & Time of Evaluation Date of Evaluation: 12/09/17 Time of Evaluation: 13:32 - Subjective Subjective: Patient seen in the room and doing ok right eye is still an issue, but doing great in therapies denies sob/cp no fever no joint pain continue current care Objective - Vital Signs/Intake and Output Vital Signs (last 24 hours): Temp Pulse Resp BP Pulse Ox 98.1 F 93 H 20 132/77 100 12/09/17 09:00 12/09/17 09:00 12/09/17 09:00 12/09/17 09:00 12/09/17 08:30 - Medications Medications: Current Medications Alendronate Sodium (Fosamax) 70 mg PO SUN [facility] Last Admin: 12/07/17 10:00 Dose: 70 mg Apixaban (Eliquis) 2.5 mg PO BID [facility] PRN Reason: Protocol Last Admin: 12/09/17 08:30 Dose: 2.5 mg Atorvastatin Calcium (Lipitor) 40 mg PO HS [facility] Last Admin: 12/08/17 21:12 Dose: 40 mg Diltiazem HCl (Cardizem Cd) 120 mg PO DAILY [facility] Last Admin: 12/09/17 08:29 Dose: 120 mg Diphenhydramine HCl (Benadryl) 50 mg PO HS [facility] PRN Reason: Itching / Pruritus Ferrous Sulfate (Feosol) 325 mg PO DAILY [facility] Last Admin: 12/09/17 08:30 Dose: 325 mg Glipizide (Glucotrol Xl) 5 mg PO BID [facility] Last Admin: 12/09/17 09:53 Dose: Not Given Home Med (Glucosamine Hcl [Glucosamine Hcl]) 750 mg PO BID [facility] Last Admin: 12/09/17 08:31 Dose: 750 mg Hydrocortisone (Hydrocortisone 2.5%) 1 applic TOP Q12 [facility] Last Admin: 12/09/17 08:32 Dose: 1 applic Insulin Human Regular (Humulin R) 0 units SC 0630 [facility] Last Admin: 12/09/17 07:07 Dose: 9 units Isosorbide Mononitrate (Imdur) 60 mg PO DAILY [facility] Last Admin: 12/09/17 08:31 Dose: 60 mg Latanoprost (Xalatan Opht) 1 drop OS HS [facility] Last Admin: 12/08/17 21:13 Dose: 1 drop Magnesium Oxide (Mag-Ox) 400 mg PO DAILY [facility] Last Admin: 12/09/17 08:31 Dose: 400 mg Metformin HCl (Glucophage) 1,000 mg PO BID [facility] Last Admin: 12/09/17 08:30 Dose: 1,000 mg Metoprolol Tartrate (Lopressor) 25 mg PO Q12 [facility] Last Admin: 12/09/17 08:28 Dose: 25 mg Pantoprazole Sodium (Protonix Ec Tab) 40 mg PO 0630 [facility] Last Admin: 12/09/17 06:23 Dose: 40 mg Sitagliptin Phosphate (Januvia) 100 mg PO DAILY [facility] Last Admin: 12/09/17 09:35 Dose: 100 mg Timolol Maleate (Timoptic 0.5% [facility]) 1 drop OU DAILY [facility] Last Admin: 12/09/17 08:32 Dose: 1 drop Venlafaxine HCl (Effexor Xr) 37.5 mg PO DAILY [facility] Last Admin: 12/09/17 08:28 Dose: 37.5 mg - Labs Labs: 12/09/17 05:30 12/09/17 05:30 PT 11.6 Seconds (9.8-13.1) 12/07/17 06:20 INR 1.0 (0.9-1.2) 12/07/17 06:20
[2017-12-09] MEDS: Latanoprost 0.005% Opht SOUTION OS SCH (21:39)
[2017-12-10] MEDS: Pantoprazole 40 mg EC Tab PO SCH (07:04)
[2017-12-10] MEDS: Insulin Regular 100 units/ml SC SCH (07:08)
[2017-12-10] MEDS: GLUCOSAMINE HCL 750 MG PO SCH ×2 (09:23→16:56)
[2017-12-10] MEDS: Magnesium Oxide 400 mg Tab UD PO SCH (09:23)
[2017-12-10] MEDS: diltiaZEM 120 mg/24 Hours CD Cap PO SCH (09:24)
[2017-12-10] MEDS: GlipiZIDE 5 mg SR Tab PO SCH ×2 (09:25→16:57)
[2017-12-10] MEDS: Venlafaxine 37.5 mg ER Cap PO SCH (11:44)
[2017-12-10] MEDS: Latanoprost 0.005% Opht SOUTION OS SCH (21:03)
--- NOTE | 2017-12-10 23:42 | CP.PCM.PN ---
Subjective - Date & Time of Evaluation Date of Evaluation: 12/08/17 Time of Evaluation: 10:00 - Subjective Subjective: Patient remains stable Has no chest pain or SOB Afebrile Still with diffused pruritic rashes all over body Objective - Vital Signs/Intake and Output Vital Signs (last 24 hours): Temp Pulse Resp BP Pulse Ox 97.7 F 70 20 139/80 99 12/10/17 20:41 12/10/17 20:42 12/10/17 20:41 12/10/17 20:42 12/10/17 20:41 - Medications Medications: Current Medications Alendronate Sodium (Fosamax) 70 mg PO SUN [facility] Last Admin: 12/07/17 10:00 Dose: 70 mg Apixaban (Eliquis) 2.5 mg PO BID [facility] PRN Reason: Protocol Last Admin: 12/10/17 16:57 Dose: 2.5 mg Atorvastatin Calcium (Lipitor) 40 mg PO HS [facility] Last Admin: 12/10/17 21:03 Dose: 40 mg Diltiazem HCl (Cardizem Cd) 120 mg PO DAILY [facility] Last Admin: 12/10/17 09:24 Dose: 120 mg Diphenhydramine HCl (Benadryl) 50 mg PO HS PRN PRN Reason: Itching / Pruritus Ferrous Sulfate (Feosol) 325 mg PO DAILY [facility] Last Admin: 12/10/17 09:24 Dose: 325 mg Glipizide (Glucotrol Xl) 5 mg PO BID [facility] Last Admin: 12/10/17 16:57 Dose: 5 mg Home Med (Glucosamine Hcl [Glucosamine Hcl]) 750 mg PO BID [facility] Last Admin: 12/10/17 16:56 Dose: 750 mg Insulin Human Regular (Humulin R) 0 units SC 0630 [facility] Last Admin: 12/10/17 07:08 Dose: 12 units Isosorbide Mononitrate (Imdur) 60 mg PO DAILY [facility] Last Admin: 12/10/17 09:27 Dose: 60 mg Lactic Acid (Lac-Hydrin 12% Lotion (225 G)) 1 applic TOP Q12 [facility] Last Admin: 12/10/17 20:43 Dose: 1 applic Latanoprost (Xalatan Opht) 1 drop OS HS [facility] Last Admin: 12/10/17 21:03 Dose: 1 drop Magnesium Oxide (Mag-Ox) 400 mg PO DAILY [facility] Last Admin: 12/10/17 09:23 Dose: 400 mg Metformin HCl (Glucophage) 1,000 mg PO BID [facility] Last Admin: 12/10/17 16:56 Dose: 1,000 mg Metoprolol Tartrate (Lopressor) 25 mg PO Q12 [facility] Last Admin: 12/10/17 20:42 Dose: 25 mg Pantoprazole Sodium (Protonix Ec Tab) 40 mg PO 0630 [facility] Last Admin: 12/10/17 07:04 Dose: 40 mg Prednisone (Prednisone Tab) 10 mg PO DAILY [facility] Stop: 12/20/17 10:31 Last Admin: 12/10/17 11:44 Dose: 10 mg Sitagliptin Phosphate (Januvia) 100 mg PO DAILY [facility] Last Admin: 12/10/17 09:23 Dose: 100 mg Timolol Maleate (Timoptic 0.5% Ophth Soln) 1 drop OU DAILY [facility] Last Admin: 12/10/17 09:23 Dose: 1 drop Venlafaxine HCl (Effexor Xr) 37.5 mg PO DAILY [facility] Last Admin: 12/10/17 11:44 Dose: 37.5 mg - Labs Labs: 12/09/17 05:30 12/09/17 05:30 PT 11.6 Seconds (9.8-13.1) 12/07/17 06:20 INR 1.0 (0.9-1.2) 12/07/17 06:20 - Head Exam Head Exam: NORMAL INSPECTION - Eye Exam Eye Exam: Normal appearance - ENT Exam ENT Exam: Mucous Membranes Moist - Respiratory Exam Respiratory Exam: Clear to Ausculation Bilateral - Cardiovascular Exam Cardiovascular Exam: REGULAR RHYTHM - Neurological Exam Neurological Exam: Awake, Oriented x3 Additional comments: right ptosis Assessment and Plan (1) Ptosis Status: Acute (2) Subarachnoid hemorrhage Status: Acute (3) Hypertension Status: Acute (4) Diabetes mellitus type 2 in nonobese Status: Acute (5) Drug allergy Status: Acute - Assessment and Plan (Free Text) Plan: Cont meds Cont tx Cont PT cont solumedrol
--- NOTE | 2017-12-10 23:46 | CP.PCM.PN ---
Subjective - Date & Time of Evaluation Date of Evaluation: 12/09/17 Time of Evaluation: 11:00 - Subjective Subjective: Patient remains stable Still with ptosis rashes have improved Objective - Vital Signs/Intake and Output Vital Signs (last 24 hours): Temp Pulse Resp BP Pulse Ox 97.7 F 70 20 139/80 99 12/10/17 20:41 12/10/17 20:42 12/10/17 20:41 12/10/17 20:42 12/10/17 20:41 - Medications Medications: Current Medications Alendronate Sodium (Fosamax) 70 mg PO SUN [facility] Last Admin: 12/07/17 10:00 Dose: 70 mg Apixaban (Eliquis) 2.5 mg PO BID [facility] PRN Reason: Protocol Last Admin: 12/10/17 16:57 Dose: 2.5 mg Atorvastatin Calcium (Lipitor) 40 mg PO HS [facility] Last Admin: 12/10/17 21:03 Dose: 40 mg Diltiazem HCl (Cardizem Cd) 120 mg PO DAILY [facility] Last Admin: 12/10/17 09:24 Dose: 120 mg Diphenhydramine HCl (Benadryl) 50 mg PO HS PRN PRN Reason: Itching / Pruritus Ferrous Sulfate (Feosol) 325 mg PO DAILY [facility] Last Admin: 12/10/17 09:24 Dose: 325 mg Glipizide (Glucotrol Xl) 5 mg PO BID [facility] Last Admin: 12/10/17 16:57 Dose: 5 mg Home Med (Glucosamine Hcl [Glucosamine Hcl]) 750 mg PO BID [facility] Last Admin: 12/10/17 16:56 Dose: 750 mg Insulin Human Regular (Humulin R) 0 units SC 0630 [facility] Last Admin: 12/10/17 07:08 Dose: 12 units Isosorbide Mononitrate (Imdur) 60 mg PO DAILY [facility] Last Admin: 12/10/17 09:27 Dose: 60 mg Lactic Acid (Lac-Hydrin 12% Lotion (225 G)) 1 applic TOP Q12 [facility] Last Admin: 12/10/17 20:43 Dose: 1 applic Latanoprost (Xalatan Opht) 1 drop OS HS [facility] Last Admin: 12/10/17 21:03 Dose: 1 drop Magnesium Oxide (Mag-Ox) 400 mg PO DAILY [facility] Last Admin: 12/10/17 09:23 Dose: 400 mg Metformin HCl (Glucophage) 1,000 mg PO BID [facility] Last Admin: 12/10/17 16:56 Dose: 1,000 mg Metoprolol Tartrate (Lopressor) 25 mg PO Q12 [facility] Last Admin: 12/10/17 20:42 Dose: 25 mg Pantoprazole Sodium (Protonix Ec Tab) 40 mg PO 0630 [facility] Last Admin: 12/10/17 07:04 Dose: 40 mg Prednisone (Prednisone Tab) 10 mg PO DAILY [facility] Stop: 12/20/17 10:31 Last Admin: 12/10/17 11:44 Dose: 10 mg Sitagliptin Phosphate (Januvia) 100 mg PO DAILY [facility] Last Admin: 12/10/17 09:23 Dose: 100 mg Timolol Maleate (Timoptic 0.5% [facility]) 1 drop OU DAILY [facility] Last Admin: 12/10/17 09:23 Dose: 1 drop Venlafaxine HCl (Effexor Xr) 37.5 mg PO DAILY [facility] Last Admin: 12/10/17 11:44 Dose: 37.5 mg - Labs Labs: 12/09/17 05:30 12/09/17 05:30 PT 11.6 Seconds (9.8-13.1) 12/07/17 06:20 INR 1.0 (0.9-1.2) 12/07/17 06:20 - Head Exam Head Exam: NORMAL INSPECTION - Eye Exam Eye Exam: Normal appearance - Respiratory Exam Respiratory Exam: NORMAL BREATHING PATTERN - Cardiovascular Exam Cardiovascular Exam: REGULAR RHYTHM - GI/Abdominal Exam GI & Abdominal Exam: Normal Bowel Sounds - Neurological Exam Neurological Exam: Awake, Oriented x3 Assessment and Plan (1) Ptosis Status: Acute (2) Subarachnoid hemorrhage Status: Acute (3) Hypertension Status: Acute (4) Diabetes mellitus type 2 in nonobese Status: Acute (5) Drug allergy Status: Acute - Assessment and Plan (Free Text) Plan: Cont meds Cont tx Cont PT
--- NOTE | 2017-12-10 23:48 | CP.PCM.PN ---
Subjective - Date & Time of Evaluation Date of Evaluation: 12/10/17 Time of Evaluation: 11:00 - Subjective Subjective: Patient remaiusn stable still with ptosis accuchecks are normal rashes have improved Objective - Vital Signs/Intake and Output Vital Signs (last 24 hours): Temp Pulse Resp BP Pulse Ox 97.7 F 70 20 139/80 99 12/10/17 20:41 12/10/17 20:42 12/10/17 20:41 12/10/17 20:42 12/10/17 20:41 - Medications Medications: Current Medications Alendronate Sodium (Fosamax) 70 mg PO SUN [facility] Last Admin: 12/07/17 10:00 Dose: 70 mg Apixaban (Eliquis) 2.5 mg PO BID [facility] PRN Reason: Protocol Last Admin: 12/10/17 16:57 Dose: 2.5 mg Atorvastatin Calcium (Lipitor) 40 mg PO HS [facility] Last Admin: 12/10/17 21:03 Dose: 40 mg Diltiazem HCl (Cardizem Cd) 120 mg PO DAILY [facility] Last Admin: 12/10/17 09:24 Dose: 120 mg Diphenhydramine HCl (Benadryl) 50 mg PO HS PRN PRN Reason: Itching / Pruritus Ferrous Sulfate (Feosol) 325 mg PO DAILY [facility] Last Admin: 12/10/17 09:24 Dose: 325 mg Glipizide (Glucotrol Xl) 5 mg PO BID [facility] Last Admin: 12/10/17 16:57 Dose: 5 mg Home Med (Glucosamine Hcl [Glucosamine Hcl]) 750 mg PO BID [facility] Last Admin: 12/10/17 16:56 Dose: 750 mg Insulin Human Regular (Humulin R) 0 units SC 0630 [facility] Last Admin: 12/10/17 07:08 Dose: 12 units Isosorbide Mononitrate (Imdur) 60 mg PO DAILY [facility] Last Admin: 12/10/17 09:27 Dose: 60 mg Lactic Acid (Lac-Hydrin 12% Lotion (225 G)) 1 applic TOP Q12 [facility] Last Admin: 12/10/17 20:43 Dose: 1 applic Latanoprost (Xalatan Opht) 1 drop OS HS [facility] Last Admin: 12/10/17 21:03 Dose: 1 drop Magnesium Oxide (Mag-Ox) 400 mg PO DAILY [facility] Last Admin: 12/10/17 09:23 Dose: 400 mg Metformin HCl (Glucophage) 1,000 mg PO BID [facility] Last Admin: 12/10/17 16:56 Dose: 1,000 mg Metoprolol Tartrate (Lopressor) 25 mg PO Q12 [facility] Last Admin: 12/10/17 20:42 Dose: 25 mg Pantoprazole Sodium (Protonix Ec Tab) 40 mg PO 0630 [facility] Last Admin: 12/10/17 07:04 Dose: 40 mg Prednisone (Prednisone Tab) 10 mg PO DAILY [facility] Stop: 12/20/17 10:31 Last Admin: 12/10/17 11:44 Dose: 10 mg Sitagliptin Phosphate (Januvia) 100 mg PO DAILY [facility] Last Admin: 12/10/17 09:23 Dose: 100 mg Timolol Maleate (Timoptic 0.5% [facility]) 1 drop OU DAILY [facility] Last Admin: 12/10/17 09:23 Dose: 1 drop Venlafaxine HCl (Effexor Xr) 37.5 mg PO DAILY [facility] Last Admin: 12/10/17 11:44 Dose: 37.5 mg - Labs Labs: 12/09/17 05:30 12/09/17 05:30 PT 11.6 Seconds (9.8-13.1) 12/07/17 06:20 INR 1.0 (0.9-1.2) 12/07/17 06:20 - Head Exam Head Exam: NORMAL INSPECTION - Eye Exam Eye Exam: Normal appearance - Cardiovascular Exam Cardiovascular Exam: REGULAR RHYTHM - GI/Abdominal Exam GI & Abdominal Exam: Normal Bowel Sounds - Neurological Exam Neurological Exam: Awake, Oriented x3 Assessment and Plan (1) Ptosis Status: Acute (2) Subarachnoid hemorrhage Status: Acute (3) Hypertension Status: Acute (4) Diabetes mellitus type 2 in nonobese Status: Acute (5) Drug allergy Status: Acute - Assessment and Plan (Free Text) Plan: Cont meds Cont tx Cont PT
[2017-12-11] MEDS: Insulin Regular 100 units/ml SC SCH (06:31)
[2017-12-11] MEDS: Pantoprazole 40 mg EC Tab PO SCH (06:34)
[2017-12-11] MEDS: Magnesium Oxide 400 mg Tab UD PO SCH (08:48)
[2017-12-11] MEDS: GlipiZIDE 5 mg SR Tab PO SCH ×2 (08:48→17:21)
[2017-12-11] MEDS: Venlafaxine 37.5 mg ER Cap PO SCH (08:49)
[2017-12-11] MEDS: diltiaZEM 120 mg/24 Hours CD Cap PO SCH (08:49)
[2017-12-11] MEDS: GLUCOSAMINE HCL 750 MG PO SCH ×2 (08:51→17:21)
[2017-12-11] MEDS: Latanoprost 0.005% Opht SOUTION OS SCH (21:28)
[2017-12-12] MEDS: Insulin Regular 100 units/ml SC SCH (06:37)
[2017-12-12] MEDS: Pantoprazole 40 mg EC Tab PO SCH (06:38)
[2017-12-12 06:53] LABS: BASO % 0.4 % (0.0-2.0); EOS # 0.3 K/uL (0.0-0.7); EOS % 3.2 % (0.0-4.0); HEMOGLOBIN 9.9 g/dL (12.0-16.0); LYMPH # 1.1 K/uL (1.0-4.3); LYMPH % 12.2 % (20.0-40.0); MEAN CELL VOLUME 88.2 fl (81.0-99.0); MEAN CORPUSCULAR HGB CONC 32.8 g/dL (33.0-37.0); MEAN PLATELET VOLUME 8.2 fl (7.2-11.7); MONO # 0.8 K/uL (0.0-0.8); MONO % 9.4 % (0.0-10.0); NEUT # 6.7 K/uL (1.8-7.0); NEUT % 74.8 % (50.0-75.0); NRBC % 0.1 % (0.0-0.0); RBC 3.42 Mil/uL (3.80-5.20); RED CELL DISTRIBUTION WIDTH 18.7 % (11.5-14.5)
[2017-12-12] MEDS: Venlafaxine 37.5 mg ER Cap PO SCH (09:02)
[2017-12-12] MEDS: GLUCOSAMINE HCL 750 MG PO SCH ×2 (09:02→16:40)
[2017-12-12] MEDS: GlipiZIDE 5 mg SR Tab PO SCH ×2 (09:02→16:40)
[2017-12-12] MEDS: diltiaZEM 120 mg/24 Hours CD Cap PO SCH (09:03)
[2017-12-12] MEDS: Magnesium Oxide 400 mg Tab UD PO SCH (09:03)
--- NOTE | 2017-12-12 10:47 | CP.PCM.CON ---
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 Her chemistries showed elevated Glucose, and pt has a h/o DM2. CbC was normal except for the platelets which were 574K on admission ten went up to 574, but today they are down to 535. She has no evidence of any thromboembolism. PMH; h/o CAD with stent placement, htn and DM2. She is not a smoker and has no h/o increased alcohol intake. Past Patient History - Past Medical History & Family History Past Medical History?: Yes - Past Social History Smoking Status: Never Smoked - CARDIAC Hx Atrial Fibrillation: Yes Hx Hypercholesterolemia: Yes Hx Hypertension: Yes Other/Comment: pherepheral neuropathy - NEUROLOGICAL HX Cerebrovascular Accident: Yes - HEENT Hx Cataracts: Yes (both eyes) Other/Comment: ppytosis rt eyetrydium excision with graft left. pytosis rt eye - ENDOCRINE/METABOLIC Hx Diabetes Mellitus Type 2: Yes - HEMATOLOGICAL/ONCOLOGICAL Hx AIDS: No Hx Anemia: Yes Hx Blood Transfusions: Yes Hx Human Immunodeficiency Virus (HIV): No - MUSCULOSKELETAL/RHEUMATOLOGICAL Hx Arthritis: Yes (hands) Hx Falls: Yes Hx Fractures: Yes (left patella ,nose) Hx Osteoporosis: Yes - PSYCHIATRIC Hx Depression: Yes (effexor) Hx Substance Use: No - SURGICAL HISTORY Hx Angioplasty: Yes Other/Comment: trigger finger left hand - ANESTHESIA Hx Anesthesia: No Hx Anesthesia Reactions: No Meds Allergies/Adverse Reactions: Allergies Allergy/AdvReac Type Severity Reaction Status Date / Time tuberculin,PPD,multi-puncture Allergy ANAPHYLAXIS Verified 11/21/17 01:12 levetiracetam [From [facility]] AdvReac DIZZINESS Verified 11/21/17 01:12 - Medications Medications: Current Medications Alendronate Sodium (Fosamax) 70 mg PO SUN [facility] Last Admin: 12/07/17 10:00 Dose: 70 mg Apixaban (Eliquis) 2.5 mg PO BID [facility] PRN Reason: Protocol Last Admin: 12/12/17 09:02 Dose: 2.5 mg Atorvastatin Calcium (Lipitor) 40 mg PO [facility] Last Admin: 12/11/17 21:28 Dose: 40 mg Diltiazem HCl (Cardizem Cd) 120 mg PO DAILY [facility] Last Admin: 12/12/17 09:03 Dose: 120 mg Diphenhydramine HCl (Benadryl) 50 mg PO HS PRN PRN Reason: Itching / Pruritus Ferrous Sulfate (Feosol) 325 mg PO DAILY [facility] Last Admin: 12/12/17 09:03 Dose: 325 mg Glipizide (Glucotrol Xl) 5 mg PO BID [facility] Last Admin: 12/12/17 09:02 Dose: 5 mg Home Med (Glucosamine Hcl [Glucosamine Hcl]) 750 mg PO BID [facility] Last Admin: 12/12/17 09:02 Dose: 750 mg Insulin Human Regular (Humulin R) 0 units SC 0630 [facility] Last Admin: 12/12/17 06:37 Dose: Not Given Isosorbide Mononitrate (Imdur) 60 mg PO DAILY [facility] Last Admin: 12/12/17 09:02 Dose: 60 mg Lactic Acid (Lac-Hydrin 12% Lotion (225 G)) 1 applic TOP Q12 [facility] Last Admin: 12/12/17 09:05 Dose: 1 applic Latanoprost (Xalatan Opht) 1 drop OS HS [facility] Last Admin: 12/11/17 21:28 Dose: 1 drop Magnesium Oxide (Mag-Ox) 400 mg PO DAILY [facility] Last Admin: 12/12/17 09:03 Dose: 400 mg Metformin HCl (Glucophage) 1,000 mg PO BID [facility] Last Admin: 12/12/17 09:04 Dose: 1,000 mg Metoprolol Tartrate (Lopressor) 25 mg PO Q12 [facility] Last Admin: 12/12/17 09:05 Dose: 25 mg Pantoprazole Sodium (Protonix Ec Tab) 40 mg PO 0630 [facility] Last Admin: 12/12/17 06:38 Dose: 40 mg Prednisone (Prednisone Tab) 10 mg PO DAILY [facility] Stop: 12/20/17 10:31 Last Admin: 12/12/17 09:02 Dose: 10 mg Sitagliptin Phosphate (Januvia) 100 mg PO DAILY [facility] Last Admin: 12/12/17 09:05 Dose: 100 mg Timolol Maleate (Timoptic 0.5% Ophth Soln) 1 drop OU DAILY [facility] Last Admin: 12/12/17 09:04 Dose: 1 drop Venlafaxine HCl (Effexor Xr) 37.5 mg PO DAILY [facility] Last Admin: 12/12/17 09:02 Dose: 37.5 mg Physical Exam - Additional Findings Additional findings: Physical exam; Alert, very pleasant well oriented to time and place neck; supple, no adenopathy Chest; Air entry good , no rales or rhonchi Heart; RSR, no murmur Abd; soft,no mass, no h/s megaly Results - Vital Signs Recent Vital Signs: Last Vital Signs Temp 97.3 F L 12/12/17 08:13 Pulse 74 12/12/17 09:05 Resp 22 12/12/17 08:13 BP 145/90 12/12/17 09:05 Pulse Ox 98 12/12/17 08:13 - Labs Result Diagrams: 12/12/17 05:30 12/09/17 05:30 Labs: Laboratory Results - last 24 hr 12/12/17 12/12/17 05:30 06:37 WBC 9.0 RBC 3.42 L Hgb 9.9 L Hct 30.1 L MCV 88.2 MCH 29.0 MCHC 32.8 L RDW 18.7 H Plt Count 535 H MPV 8.2 Neut % (Auto) 74.8 Lymph % (Auto) 12.2 L [place] % (Auto) 9.4 Eos % (Auto) 3.2 Baso % (Auto) 0.4 Neut # (Auto) 6.7 Lymph # (Auto) 1.1 [place] # (Auto) 0.8 Eos # (Auto) 0.3 Baso # (Auto) 0.0 POC Glucose (mg/dL) 105 Assessment & Plan - Assessment and Plan (Free Text) Assessment: impression; Appears to be a reactive thrombocytosis and is already trending down. Plan: Plan : Monitor CBC for a couple of days. If the platelets continue to trend down she can be discharged. - Date & Time Date: 12/12/17 Time: 10:59
--- NOTE | 2017-12-12 15:25 | CP.PCM.PN ---
Subjective - Date & Time of Evaluation Date of Evaluation: 12/12/17 Time of Evaluation: 14:10 - Subjective Subjective: Mrs. Givens was seen and examined today at bedside. I discussed with her the findings of the CT scan and let her know that she has good resolution of the SAH. She continued to complain of right eye ptosis. Objective - Vital Signs/Intake and Output Vital Signs (last 24 hours): Temp Pulse Resp BP Pulse Ox 97.3 F L 74 22 145/90 98 12/12/17 08:13 12/12/17 09:05 12/12/17 08:13 12/12/17 09:05 12/12/17 08:13 - Medications Medications: Current Medications Alendronate Sodium (Fosamax) 70 mg PO SUN [facility] Last Admin: 12/07/17 10:00 Dose: 70 mg Apixaban (Eliquis) 2.5 mg PO BID [facility] PRN Reason: Protocol Last Admin: 12/12/17 09:02 Dose: 2.5 mg Atorvastatin Calcium (Lipitor) 40 mg PO HS [facility] Last Admin: 12/11/17 21:28 Dose: 40 mg Diltiazem HCl (Cardizem Cd) 120 mg PO DAILY [facility] Last Admin: 12/12/17 09:03 Dose: 120 mg Diphenhydramine HCl (Benadryl) 50 mg PO HS PRN PRN Reason: Itching / Pruritus Ferrous Sulfate (Feosol) 325 mg PO DAILY [facility] Last Admin: 12/12/17 09:03 Dose: 325 mg Glipizide (Glucotrol Xl) 5 mg PO BID [facility] Last Admin: 12/12/17 09:02 Dose: 5 mg Home Med (Glucosamine Hcl [Glucosamine Hcl]) 750 mg PO BID [facility] Last Admin: 12/12/17 09:02 Dose: 750 mg Insulin Human Regular (Humulin R) 0 units SC 0630 [facility] Last Admin: 12/12/17 06:37 Dose: Not Given Isosorbide Mononitrate (Imdur) 60 mg PO DAILY [facility] Last Admin: 12/12/17 09:02 Dose: 60 mg Lactic Acid (Lac-Hydrin 12% Lotion (225 G)) 1 applic TOP Q12 [facility] Last Admin: 12/12/17 09:05 Dose: 1 applic Latanoprost (Xalatan Opht) 1 drop OS HS [facility] Last Admin: 12/11/17 21:28 Dose: 1 drop Magnesium Oxide (Mag-Ox) 400 mg PO DAILY [facility] Last Admin: 12/12/17 09:03 Dose: 400 mg Metformin HCl (Glucophage) 1,000 mg PO BID [facility] Last Admin: 12/12/17 09:04 Dose: 1,000 mg Metoprolol Tartrate (Lopressor) 25 mg PO Q12 [facility] Last Admin: 12/12/17 09:05 Dose: 25 mg Pantoprazole Sodium (Protonix Ec Tab) 40 mg PO 0630 [facility] Last Admin: 12/12/17 06:38 Dose: 40 mg Prednisone (Prednisone Tab) 10 mg PO DAILY [facility] Stop: 12/20/17 10:31 Last Admin: 12/12/17 09:02 Dose: 10 mg Sitagliptin Phosphate (Januvia) 100 mg PO DAILY [facility] Last Admin: 12/12/17 09:05 Dose: 100 mg Timolol Maleate (Timoptic 0.5% [facility]) 1 drop OU DAILY [facility] Last Admin: 12/12/17 09:04 Dose: 1 drop Venlafaxine HCl (Effexor Xr) 37.5 mg PO DAILY [facility] Last Admin: 12/12/17 09:02 Dose: 37.5 mg - Labs Labs: 12/12/17 05:30 12/09/17 05:30 PT 11.6 Seconds (9.8-13.1) 12/07/17 06:20 INR 1.0 (0.9-1.2) 12/07/17 06:20 - Neurological Exam Neurological Exam: Abnormal Gait, Alert, Awake, Oriented x3 Neuro motor strength exam: Left Upper Extremity: 4, Right Upper Extremity: 4, Left Lower Extremity: 4, Right Lower Extremity: 4 Additional comments: Likely CN 3 deficit on the right side. Assessment and Plan (1) Subarachnoid hemorrhage Assessment & Plan: Improved. Continue current management. Neurology will follow. Status: Acute
--- NOTE | 2017-12-12 17:32 | CP.PCM.PN ---
Subjective - Date & Time of Evaluation Date of Evaluation: 12/12/17 Time of Evaluation: 17:31 - Subjective Subjective: Patient seen in the room had a hard day given extra fatigue from prednisone denies sob/cp continue with current care very motivated team conf 12/17/17 for d/c planning Objective - Vital Signs/Intake and Output Vital Signs (last 24 hours): Temp Pulse Resp BP Pulse Ox 97.3 F L 74 22 145/90 98 12/12/17 08:13 12/12/17 09:05 12/12/17 08:13 12/12/17 09:05 12/12/17 08:13 - Medications Medications: Current Medications Alendronate Sodium (Fosamax) 70 mg PO SUN [facility] Last Admin: 12/07/17 10:00 Dose: 70 mg Apixaban (Eliquis) 2.5 mg PO BID [facility] PRN Reason: Protocol Last Admin: 12/12/17 16:39 Dose: 2.5 mg Atorvastatin Calcium (Lipitor) 40 mg PO HS [facility] Last Admin: 12/11/17 21:28 Dose: 40 mg Diltiazem HCl (Cardizem Cd) 120 mg PO DAILY [facility] Last Admin: 12/12/17 09:03 Dose: 120 mg Diphenhydramine HCl (Benadryl) 50 mg PO HS PRN PRN Reason: Itching / Pruritus Ferrous Sulfate (Feosol) 325 mg PO DAILY [facility] Last Admin: 12/12/17 09:03 Dose: 325 mg Glipizide (Glucotrol Xl) 5 mg PO BID [facility] Last Admin: 12/12/17 16:40 Dose: 5 mg Home Med (Glucosamine Hcl [Glucosamine Hcl]) 750 mg PO BID [facility] Last Admin: 12/12/17 16:40 Dose: 750 mg Insulin Human Regular (Humulin R) 0 units SC 0630 [facility] Last Admin: 12/12/17 06:37 Dose: Not Given Isosorbide Mononitrate (Imdur) 60 mg PO DAILY [facility] Last Admin: 12/12/17 09:02 Dose: 60 mg Lactic Acid (Lac-Hydrin 12% Lotion (225 G)) 1 applic TOP Q12 [facility] Last Admin: 12/12/17 09:05 Dose: 1 applic Latanoprost (Xalatan Opht) 1 drop OS HS [facility] Last Admin: 12/11/17 21:28 Dose: 1 drop Magnesium Oxide (Mag-Ox) 400 mg PO DAILY [facility] Last Admin: 12/12/17 09:03 Dose: 400 mg Metformin HCl (Glucophage) 1,000 mg PO BID [facility] Last Admin: 12/12/17 16:40 Dose: 1,000 mg Metoprolol Tartrate (Lopressor) 25 mg PO Q12 [facility] Last Admin: 12/12/17 09:05 Dose: 25 mg Pantoprazole Sodium (Protonix Ec Tab) 40 mg PO 0630 [facility] Last Admin: 12/12/17 06:38 Dose: 40 mg Prednisone (Prednisone Tab) 10 mg PO DAILY [facility] Stop: 12/20/17 10:31 Last Admin: 12/12/17 09:02 Dose: 10 mg Sitagliptin Phosphate (Januvia) 100 mg PO DAILY [facility] Last Admin: 12/12/17 09:05 Dose: 100 mg Timolol Maleate (Timoptic 0.5% [facility]) 1 drop OU DAILY [facility] Last Admin: 12/12/17 09:04 Dose: 1 drop Venlafaxine HCl (Effexor Xr) 37.5 mg PO DAILY [facility] Last Admin: 12/12/17 09:02 Dose: 37.5 mg - Labs Labs: 12/12/17 05:30 12/09/17 05:30 PT 11.6 Seconds (9.8-13.1) 12/07/17 06:20 INR 1.0 (0.9-1.2) 12/07/17 06:20
[2017-12-12] MEDS: Latanoprost 0.005% Opht SOUTION OS SCH (21:56)
--- NOTE | 2017-12-12 23:41 | CP.PCM.PN ---
Subjective - Date & Time of Evaluation Date of Evaluation: 12/12/17 Time of Evaluation: 12:00 - Subjective Subjective: Seen and examined, feels well except c/o R eye droop Objective - Vital Signs/Intake and Output Vital Signs (last 24 hours): Temp Pulse Resp BP Pulse Ox 97.7 F 68 19 154/81 H 99 12/12/17 20:00 12/12/17 21:54 12/12/17 20:00 12/12/17 21:54 12/12/17 20:00 - Medications Medications: Current Medications Alendronate Sodium (Fosamax) 70 mg PO SUN [facility] Last Admin: 12/07/17 10:00 Dose: 70 mg Apixaban (Eliquis) 2.5 mg PO BID [facility] PRN Reason: Protocol Last Admin: 12/12/17 16:39 Dose: 2.5 mg Atorvastatin Calcium (Lipitor) 40 mg PO HS [facility] Last Admin: 12/12/17 21:55 Dose: 40 mg Diltiazem HCl (Cardizem Cd) 120 mg PO DAILY [facility] Last Admin: 12/12/17 09:03 Dose: 120 mg Diphenhydramine HCl (Benadryl) 50 mg PO HS PRN PRN Reason: Itching / Pruritus Ferrous Sulfate (Feosol) 325 mg PO DAILY [facility] Last Admin: 12/12/17 09:03 Dose: 325 mg Glipizide (Glucotrol Xl) 5 mg PO BID [facility] Last Admin: 12/12/17 16:40 Dose: 5 mg Home Med (Glucosamine Hcl [Glucosamine Hcl]) 750 mg PO BID [facility] Last Admin: 12/12/17 16:40 Dose: 750 mg Insulin Human Regular (Humulin R) 0 units SC 0630 [facility] Last Admin: 12/12/17 06:37 Dose: Not Given Isosorbide Mononitrate (Imdur) 60 mg PO DAILY [facility] Last Admin: 12/12/17 09:02 Dose: 60 mg Lactic Acid (Lac-Hydrin 12% Lotion (225 G)) 1 applic TOP Q12 [facility] Last Admin: 12/12/17 21:54 Dose: Not Given Latanoprost (Xalatan Opht) 1 drop OS HS [facility] Last Admin: 12/12/17 21:56 Dose: 1 drop Magnesium Oxide (Mag-Ox) 400 mg PO DAILY [facility] Last Admin: 12/12/17 09:03 Dose: 400 mg Metformin HCl (Glucophage) 1,000 mg PO BID [facility] Last Admin: 12/12/17 16:40 Dose: 1,000 mg Metoprolol Tartrate (Lopressor) 25 mg PO Q12 [facility] Last Admin: 12/12/17 21:54 Dose: 25 mg Pantoprazole Sodium (Protonix Ec Tab) 40 mg PO 0630 [facility] Last Admin: 12/12/17 06:38 Dose: 40 mg Prednisone (Prednisone Tab) 10 mg PO DAILY [facility] Stop: 12/20/17 10:31 Last Admin: 12/12/17 09:02 Dose: 10 mg Sitagliptin Phosphate (Januvia) 100 mg PO DAILY [facility] Last Admin: 12/12/17 09:05 Dose: 100 mg Timolol Maleate (Timoptic 0.5% Oph Soln) 1 drop OU DAILY [facility] Last Admin: 12/12/17 09:04 Dose: 1 drop Venlafaxine HCl (Effexor Xr) 37.5 mg PO DAILY [facility] Last Admin: 12/12/17 09:02 Dose: 37.5 mg - Labs Labs: 12/12/17 05:30 12/09/17 05:30 PT 11.6 Seconds (9.8-13.1) 12/07/17 06:20 INR 1.0 (0.9-1.2) 12/07/17 06:20 - Constitutional Appears: Well, Non-toxic, No Acute Distress - Head Exam Head Exam: ATRAUMATIC, NORMAL INSPECTION - Eye Exam Eye Exam: absent: Conjunctival injection, EOMI, Normal appearance, Nystagmus, Periorbital swelling, Periorbital tenderness, PERRL, Scleral icterus Additional comments: R eye ptosis - ENT Exam ENT Exam: Mucous Membranes Moist - Neck Exam Neck Exam: Full ROM, Normal Inspection - Respiratory Exam Respiratory Exam: Clear to Ausculation Bilateral, NORMAL BREATHING PATTERN - Cardiovascular Exam Cardiovascular Exam: REGULAR RHYTHM - GI/Abdominal Exam GI & Abdominal Exam: Soft, Normal Bowel Sounds - Extremities Exam Extremities Exam: Full ROM, Normal Capillary Refill, Normal Inspection. absent : Calf Tenderness, Joint Swelling, Pedal Edema, Tenderness - Back Exam Back Exam: NORMAL INSPECTION - Neurological Exam Neurological Exam: Alert, Awake, Oriented x3, Reflexes Normal Neuro motor strength exam: Left Upper Extremity: 4, Right Upper Extremity: 4, Left Lower Extremity: 4, Right Lower Extremity: 4 - Psychiatric Exam Psychiatric exam: Normal Affect, Normal Mood - Skin Skin Exam: Dry, Intact, Normal Color, Warm Assessment and Plan (1) Subarachnoid hemorrhage Status: Resolved (2) Ptosis Status: Acute (3) 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
[2017-12-13] MEDS: Insulin Regular 100 units/ml SC SCH (06:58)
[2017-12-13] MEDS: Pantoprazole 40 mg EC Tab PO SCH (06:59)
[2017-12-13 08:08] LABS: MEAN CELL VOLUME 87.5 fl (81.0-99.0); MEAN CORPUSCULAR HEMOGLOBIN 28.9 pg (27.0-31.0); RBC 3.47 Mil/uL (3.80-5.20); RED CELL DISTRIBUTION WIDTH 18.4 % (11.5-14.5); WHITE BLOOD COUNT 7.2 K/uL (4.8-10.8)
[2017-12-13 08:22] LABS: BLOOD UREA NITROGEN 23 mg/dl (7-17); CALCIUM 9.6 mg/dL (8.4-10.2); GFR AFRICAN-AMERICAN > 60; GFR NON-AFRICAN AMERICAN 60
[2017-12-13] MEDS: diltiaZEM 120 mg/24 Hours CD Cap PO SCH (08:47)
[2017-12-13] MEDS: Magnesium Oxide 400 mg Tab UD PO SCH (08:47)
[2017-12-13] MEDS: GLUCOSAMINE HCL 750 MG PO SCH ×2 (08:49→16:33)
[2017-12-13] MEDS: GlipiZIDE 5 mg SR Tab PO SCH ×2 (08:49→16:31)
[2017-12-13] MEDS: Venlafaxine 37.5 mg ER Cap PO SCH (08:50)
[2017-12-13] MEDS: Latanoprost 0.005% Opht SOUTION OS SCH (21:36)
--- NOTE | 2017-12-13 22:49 | CP.PCM.PN ---
Subjective - Date & Time of Evaluation Date of Evaluation: 12/13/17 Time of Evaluation: 17:30 - Subjective Subjective: Feels the same today, skin feels better Objective - Vital Signs/Intake and Output Vital Signs (last 24 hours): Temp Pulse Resp BP Pulse Ox 97.3 F L 72 20 156/77 H 98 12/13/17 07:37 12/13/17 21:35 12/13/17 07:37 12/13/17 21:35 12/13/17 07:37 - Medications Medications: Current Medications Alendronate Sodium (Fosamax) 70 mg PO SUN [facility] Last Admin: 12/07/17 10:00 Dose: 70 mg Apixaban (Eliquis) 2.5 mg PO BID [facility] PRN Reason: Protocol Last Admin: 12/13/17 16:31 Dose: 2.5 mg Atorvastatin Calcium (Lipitor) 40 mg PO [facility] Last Admin: 12/13/17 21:35 Dose: 40 mg Diltiazem HCl (Cardizem Cd) 120 mg PO DAILY [facility] Last Admin: 12/13/17 08:47 Dose: 120 mg Ferrous Sulfate (Feosol) 325 mg PO DAILY [facility] Last Admin: 12/13/17 08:49 Dose: 325 mg Glipizide (Glucotrol Xl) 5 mg PO BID [facility] Last Admin: 12/13/17 16:31 Dose: 5 mg Home Med (Glucosamine Hcl [Glucosamine Hcl]) 750 mg PO BID [facility] Last Admin: 12/13/17 16:33 Dose: 750 mg Insulin Human Regular (Humulin R) 0 units SC 0630 [facility] Last Admin: 12/13/17 06:58 Dose: Not Given Isosorbide Mononitrate (Imdur) 60 mg PO DAILY [facility] Last Admin: 12/13/17 08:48 Dose: 60 mg Lactic Acid (Lac-Hydrin 12% Lotion (225 G)) 1 applic TOP Q12 [facility] Last Admin: 12/13/17 21:35 Dose: Not Given Latanoprost (Xalatan Opht) 1 drop OS HS [facility] Last Admin: 12/13/17 21:36 Dose: 1 drop Magnesium Oxide (Mag-Ox) 400 mg PO DAILY [facility] Last Admin: 12/13/17 08:47 Dose: 400 mg Metformin HCl (Glucophage) 1,000 mg PO BID [facility] Last Admin: 12/13/17 16:32 Dose: 1,000 mg Metoprolol Tartrate (Lopressor) 25 mg PO Q12 [facility] Last Admin: 12/13/17 21:35 Dose: 25 mg Pantoprazole Sodium (Protonix Ec Tab) 40 mg PO 0630 [facility] Last Admin: 12/13/17 06:59 Dose: 40 mg Sitagliptin Phosphate (Januvia) 100 mg PO DAILY [facility] Last Admin: 12/13/17 08:48 Dose: 100 mg Timolol Maleate (Timoptic 0.5% Oph Soln) 1 drop OU DAILY [facility] Last Admin: 12/13/17 08:49 Dose: 1 drop Venlafaxine HCl (Effexor Xr) 37.5 mg PO DAILY [facility] Last Admin: 12/13/17 08:50 Dose: 37.5 mg - Labs Labs: 12/13/17 06:00 12/13/17 06:00 PT 11.6 Seconds (9.8-13.1) 12/07/17 06:20 INR 1.0 (0.9-1.2) 12/07/17 06:20 - Constitutional Appears: Well, No Acute Distress - Head Exam Head Exam: ATRAUMATIC, NORMAL INSPECTION - Eye Exam Additional comments: R eye ptosis - ENT Exam ENT Exam: Mucous Membranes Moist - Respiratory Exam Respiratory Exam: Clear to Ausculation Bilateral - Cardiovascular Exam Cardiovascular Exam: REGULAR RHYTHM - GI/Abdominal Exam GI & Abdominal Exam: Soft, Normal Bowel Sounds - Extremities Exam Extremities Exam: Full ROM, Normal Capillary Refill - Neurological Exam Neurological Exam: Alert, Awake, Oriented x3 - Psychiatric Exam Psychiatric exam: Normal Affect, Normal Mood - Skin Skin Exam: Dry, Intact, Normal Color, Warm Assessment and Plan (1) Subarachnoid hemorrhage Status: Resolved (2) Ptosis Status: Acute (3) 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
[2017-12-14] MEDS: Pantoprazole 40 mg EC Tab PO SCH (06:56)
[2017-12-14] MEDS: Insulin Regular 100 units/ml SC SCH (06:58)
[2017-12-14] MEDS: Venlafaxine 37.5 mg ER Cap PO SCH (08:49)
[2017-12-14] MEDS: GLUCOSAMINE HCL 750 MG PO SCH ×2 (08:49→16:24)
[2017-12-14] MEDS: GlipiZIDE 5 mg SR Tab PO SCH ×2 (08:49→16:24)
[2017-12-14] MEDS: diltiaZEM 120 mg/24 Hours CD Cap PO SCH (08:50)
[2017-12-14] MEDS: ALENDRONATE 70 MG TAB PO SCH (08:51)
[2017-12-14] MEDS: Magnesium Oxide 400 mg Tab UD PO SCH (09:22)
--- NOTE | 2017-12-14 09:33 | CP.PCM.PN ---
Subjective - Date & Time of Evaluation Date of Evaluation: 12/14/17 Time of Evaluation: 09:32 - Subjective Subjective: Pt's platelet count is coming down to 489, so I do feel that this was reactive thrombocytosis and is improving. Will sign off case . Please recall if needed. Objective - Vital Signs/Intake and Output Vital Signs (last 24 hours): Temp Pulse Resp BP Pulse Ox 96.8 F L 77 18 124/75 99 12/14/17 08:09 12/14/17 08:50 12/14/17 08:09 12/14/17 08:50 12/14/17 08:09 - Medications Medications: Current Medications Alendronate Sodium (Fosamax) 70 mg PO SUN [facility] Last Admin: 12/14/17 08:51 Dose: 70 mg Apixaban (Eliquis) 2.5 mg PO BID [facility] PRN Reason: Protocol Last Admin: 12/14/17 08:49 Dose: 2.5 mg Atorvastatin Calcium (Lipitor) 40 mg PO HS [facility] Last Admin: 12/13/17 21:35 Dose: 40 mg Diltiazem HCl (Cardizem Cd) 120 mg PO DAILY [facility] Last Admin: 12/14/17 08:50 Dose: 120 mg Ferrous Sulfate (Feosol) 325 mg PO DAILY [facility] Last Admin: 12/14/17 08:49 Dose: 325 mg Glipizide (Glucotrol Xl) 5 mg PO BID [facility] Last Admin: 12/14/17 08:49 Dose: 5 mg Home Med (Glucosamine Hcl [Glucosamine Hcl]) 750 mg PO BID [facility] Last Admin: 12/14/17 08:49 Dose: 750 mg Insulin Human Regular (Humulin R) 0 units SC 0630 [facility] Last Admin: 12/14/17 06:58 Dose: Not Given Isosorbide Mononitrate (Imdur) 60 mg PO DAILY [facility] Last Admin: 12/14/17 08:50 Dose: 60 mg Lactic Acid (Lac-Hydrin 12% Lotion (225 G)) 1 applic TOP Q12 [facility] Last Admin: 12/14/17 09:19 Dose: Not Given Latanoprost (Xalatan Opht) 1 drop OS HS [facility] Last Admin: 12/13/17 21:36 Dose: 1 drop Magnesium Oxide (Mag-Ox) 400 mg PO DAILY [facility] Last Admin: 12/14/17 09:22 Dose: 400 mg Metformin HCl (Glucophage) 1,000 mg PO BID [facility] Last Admin: 12/14/17 08:49 Dose: 1,000 mg Metoprolol Tartrate (Lopressor) 25 mg PO Q12 [facility] Last Admin: 12/14/17 08:50 Dose: 25 mg Pantoprazole Sodium (Protonix Ec Tab) 40 mg PO 0630 [facility] Last Admin: 12/14/17 06:56 Dose: 40 mg Sitagliptin Phosphate (Januvia) 100 mg PO DAILY [facility] Last Admin: 12/14/17 08:49 Dose: 100 mg [facility] 1 drop OU DAILY [facility] Last Admin: 12/14/17 08:51 Dose: 1 drop Venlafaxine HCl (Effexor Xr) 37.5 mg PO DAILY [facility] Last Admin: 12/14/17 08:49 Dose: 37.5 mg - Labs Labs: 12/13/17 06:00 12/13/17 06:00 PT 11.6 Seconds (9.8-13.1) 12/07/17 06:20 INR 1.0 (0.9-1.2) 12/07/17 06:20
[2017-12-14 09:54] LABS: BASO # 0.1 K/uL (0.0-0.2); BASO % 0.9 % (0.0-2.0); EOS # 0.6 K/uL (0.0-0.7); EOS % 7.7 % (0.0-4.0); HEMOGLOBIN 10.9 g/dL (12.0-16.0); LYMPH # 0.9 K/uL (1.0-4.3); LYMPH % 11.8 % (20.0-40.0); MEAN CELL VOLUME 88.7 fl (81.0-99.0); MEAN CORPUSCULAR HEMOGLOBIN 29.3 pg (27.0-31.0); MEAN PLATELET VOLUME 8.4 fl (7.2-11.7); MONO # 0.6 K/uL (0.0-0.8); MONO % 7.3 % (0.0-10.0); NEUT # 5.7 K/uL (1.8-7.0); NEUT % 72.3 % (50.0-75.0); NRBC % 0.2 % (0.0-0.0); RBC 3.72 Mil/uL (3.80-5.20); RED CELL DISTRIBUTION WIDTH 18.3 % (11.5-14.5); WHITE BLOOD COUNT 7.9 K/uL (4.8-10.8)
--- NOTE | 2017-12-14 16:43 | CP.PCM.PN ---
Subjective - Date & Time of Evaluation Date of Evaluation: 12/14/17 Time of Evaluation: 16:42 - Subjective Subjective: Patient seen walking up and down the hallway with a relative, talking about their rehab NAD ambulating with hand held assist >200' continue current care Objective - Vital Signs/Intake and Output Vital Signs (last 24 hours): Temp Pulse Resp BP Pulse Ox 96.8 F L 77 18 124/75 99 12/14/17 08:09 12/14/17 08:50 12/14/17 08:09 12/14/17 08:50 12/14/17 08:09 - Medications Medications: Current Medications Alendronate Sodium (Fosamax) 70 mg PO SUN@0630 [facility] Apixaban (Eliquis) 2.5 mg PO BID [facility] PRN Reason: Protocol Last Admin: 12/14/17 16:24 Dose: 2.5 mg Atorvastatin Calcium (Lipitor) 40 mg PO [facility] Last Admin: 12/13/17 21:35 Dose: 40 mg Diltiazem HCl (Cardizem Cd) 120 mg PO DAILY [facility] Last Admin: 12/14/17 08:50 Dose: 120 mg Ferrous Sulfate (Feosol) 325 mg PO DAILY [facility] Last Admin: 12/14/17 08:49 Dose: 325 mg Glipizide (Glucotrol Xl) 5 mg PO BID [facility] Last Admin: 12/14/17 16:24 Dose: 5 mg Home Med (Glucosamine Hcl [Glucosamine Hcl]) 750 mg PO BID [facility] Last Admin: 12/14/17 16:24 Dose: 750 mg Insulin Human Regular (Humulin R) 0 units SC 0630 [facility] Last Admin: 12/14/17 06:58 Dose: Not Given Isosorbide Mononitrate (Imdur) 60 mg PO DAILY [facility] Last Admin: 12/14/17 08:50 Dose: 60 mg Lactic Acid (Lac-Hydrin 12% Lotion (225 G)) 1 applic TOP Q12 [facility] Last Admin: 12/14/17 09:19 Dose: Not Given Latanoprost (Xalatan Opht) 1 drop OS HS [facility] Last Admin: 12/13/17 21:36 Dose: 1 drop Magnesium Oxide (Mag-Ox) 400 mg PO DAILY [facility] Last Admin: 12/14/17 09:22 Dose: 400 mg Metformin HCl (Glucophage) 1,000 mg PO BID [facility] Last Admin: 12/14/17 16:24 Dose: 1,000 mg Metoprolol Tartrate (Lopressor) 25 mg PO Q12 [facility] Last Admin: 12/14/17 08:50 Dose: 25 mg Pantoprazole Sodium (Protonix Ec Tab) 40 mg PO 0630 [facility] Last Admin: 12/14/17 06:56 Dose: 40 mg Sitagliptin Phosphate (Januvia) 100 mg PO DAILY [facility] Last Admin: 12/14/17 08:49 Dose: 100 mg Timolol Maleate (Timoptic 0.5% [facility]) 1 drop OU DAILY [facility] Last Admin: 12/14/17 08:51 Dose: 1 drop Venlafaxine HCl (Effexor Xr) 37.5 mg PO DAILY [facility] Last Admin: 12/14/17 08:49 Dose: 37.5 mg - Labs Labs: 12/14/17 06:40 12/13/17 06:00 PT 11.6 Seconds (9.8-13.1) 12/07/17 06:20 INR 1.0 (0.9-1.2) 12/07/17 06:20
[2017-12-14] MEDS: Latanoprost 0.005% Opht SOUTION OS SCH (21:15)
--- NOTE | 2017-12-14 21:24 | CP.PCM.PN ---
Subjective - Date & Time of Evaluation Date of Evaluation: 12/14/17 Time of Evaluation: 17:00 - Subjective Subjective: Feels better today, eager to go home, eating and tolerating Objective - Vital Signs/Intake and Output Vital Signs (last 24 hours): Temp Pulse Resp BP Pulse Ox 97.0 F L 67 20 130/79 98 12/14/17 20:13 12/14/17 20:14 12/14/17 20:13 12/14/17 20:14 12/14/17 20:13 - Medications Medications: Current Medications Alendronate Sodium (Fosamax) 70 mg PO SUN@0630 [facility] Apixaban (Eliquis) 2.5 mg PO BID [facility] PRN Reason: Protocol Last Admin: 12/14/17 16:24 Dose: 2.5 mg Atorvastatin Calcium (Lipitor) 40 mg PO [facility] Last Admin: 12/14/17 21:15 Dose: 40 mg Diltiazem HCl (Cardizem Cd) 120 mg PO DAILY [facility] Last Admin: 12/14/17 08:50 Dose: 120 mg Ferrous Sulfate (Feosol) 325 mg PO DAILY [facility] Last Admin: 12/14/17 08:49 Dose: 325 mg Glipizide (Glucotrol Xl) 5 mg PO BID [facility] Last Admin: 12/14/17 16:24 Dose: 5 mg Home Med (Glucosamine Hcl [Glucosamine Hcl]) 750 mg PO BID [facility] Last Admin: 12/14/17 16:24 Dose: 750 mg Insulin Human Regular (Humulin R) 0 units SC 0630 [facility] Last Admin: 12/14/17 06:58 Dose: Not Given Isosorbide Mononitrate (Imdur) 60 mg PO DAILY [facility] Last Admin: 12/14/17 08:50 Dose: 60 mg Lactic Acid (Lac-Hydrin 12% Lotion (225 G)) 1 applic TOP Q12 [facility] Last Admin: 12/14/17 20:14 Dose: Not Given Latanoprost (Xalatan Opht) 1 drop OS HS [facility] Last Admin: 12/14/17 21:15 Dose: 1 drop Magnesium Oxide (Mag-Ox) 400 mg PO DAILY [facility] Last Admin: 12/14/17 09:22 Dose: 400 mg Metformin HCl (Glucophage) 1,000 mg PO BID [facility] Last Admin: 12/14/17 16:24 Dose: 1,000 mg Metoprolol Tartrate (Lopressor) 25 mg PO Q12 [facility] Last Admin: 12/14/17 20:14 Dose: 25 mg Pantoprazole Sodium (Protonix Ec Tab) 40 mg PO 0630 [facility] Last Admin: 12/14/17 06:56 Dose: 40 mg Sitagliptin Phosphate (Januvia) 100 mg PO DAILY [facility] Last Admin: 12/14/17 08:49 Dose: 100 mg Timolol Maleate (Timoptic 0.5% Ophth Soln) 1 drop OU DAILY [facility] Last Admin: 12/14/17 08:51 Dose: 1 drop Venlafaxine HCl (Effexor Xr) 37.5 mg PO DAILY [facility] Last Admin: 12/14/17 08:49 Dose: 37.5 mg - Labs Labs: 12/14/17 06:40 12/13/17 06:00 PT 11.6 Seconds (9.8-13.1) 12/07/17 06:20 INR 1.0 (0.9-1.2) 12/07/17 06:20 - Constitutional Appears: Well, Non-toxic, No Acute Distress - Head Exam Head Exam: ATRAUMATIC, NORMAL INSPECTION - Eye Exam Additional comments: R ptosis slightly improved - ENT Exam ENT Exam: Mucous Membranes Moist - Neck Exam Neck Exam: Full ROM, Normal Inspection - Respiratory Exam Respiratory Exam: Clear to Ausculation Bilateral, NORMAL BREATHING PATTERN - Cardiovascular Exam Cardiovascular Exam: REGULAR RHYTHM - GI/Abdominal Exam GI & Abdominal Exam: Soft, Normal Bowel Sounds - Extremities Exam Extremities Exam: Full ROM, Normal Capillary Refill, Normal Inspection - Back Exam Back Exam: NORMAL INSPECTION - Neurological Exam Neurological Exam: Alert, Awake, Oriented x3 - Psychiatric Exam Psychiatric exam: Normal Affect, Normal Mood - Skin Skin Exam: Dry, Normal Color, Warm Assessment and Plan (1) Subarachnoid hemorrhage Status: Resolved (2) Ptosis Status: Acute (3) 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
[2017-12-15] MEDS: Pantoprazole 40 mg EC Tab PO SCH (06:21)
[2017-12-15] MEDS: Insulin Regular 100 units/ml SC SCH (07:00)
[2017-12-15] MEDS: GLUCOSAMINE HCL 750 MG PO SCH ×2 (08:52→17:07)
[2017-12-15] MEDS: diltiaZEM 120 mg/24 Hours CD Cap PO SCH (08:53)
[2017-12-15] MEDS: Magnesium Oxide 400 mg Tab UD PO SCH ×2 (08:54→09:16)
[2017-12-15] MEDS: GlipiZIDE 5 mg SR Tab PO SCH (08:54)
[2017-12-15] MEDS: Venlafaxine 37.5 mg ER Cap PO SCH (08:55)
--- NOTE | 2017-12-15 08:57 | CON ---
DATE: HISTORY OF PRESENT ILLNESS: Mrs. Givens is an 82-year-old white female, who I was called in to see for consultation because of ptosis of the right lid. PHYSICAL EXAMINATION HEENT: Visual acuity was 2200 in each eye. Lid exam showed a marked ptosis in the right eye. 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 Lens exam showed in both eyes. 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 I reassured her that with time, hopefully the third nerve will get better, but there was nothing we could do at the moment. I told her to come see me when she is discharged in my office. Hilton Arreaga MD
--- NOTE | 2017-12-15 11:58 | CP.PCM.PN ---
Subjective - Date & Time of Evaluation Date of Evaluation: 12/15/17 Time of Evaluation: 11:53 - Subjective Subjective: Ms. Givens was seen and examined at the bedside. She is alert, oriented in all spheres. She is able to safety transfer safely from bed to wheelchair. She denies any headache, dizziness, lightheadedness, nausea, or vomiting. Her eyelids on her right is closed and unable to maintain it open, being followed by opthalmology. There was no untoward events overnight. Objective - Vital Signs/Intake and Output Vital Signs (last 24 hours): Temp Pulse Resp BP Pulse Ox 98.0 F 81 20 128/72 97 12/15/17 08:55 12/15/17 08:55 12/15/17 08:55 12/15/17 08:55 12/15/17 08:55 - Medications Medications: Current Medications Alendronate Sodium (Fosamax) 70 mg PO SUN@0630 [facility] Apixaban (Eliquis) 2.5 mg PO BID [facility] PRN Reason: Protocol Last Admin: 12/15/17 08:53 Dose: 2.5 mg Atorvastatin Calcium (Lipitor) 40 mg PO HS [facility] Last Admin: 12/14/17 21:15 Dose: 40 mg Diltiazem HCl (Cardizem Cd) 120 mg PO DAILY [facility] Last Admin: 12/15/17 08:53 Dose: 120 mg Ferrous Sulfate (Feosol) 325 mg PO DAILY [facility] Last Admin: 12/15/17 08:53 Dose: 325 mg Home Med (Glucosamine Hcl [Glucosamine Hcl]) 750 mg PO BID [facility] Last Admin: 12/15/17 08:52 Dose: 750 mg Hydrocortisone (Hydrocortisone Lotion 2.5%) 1 applic TP BID PRN PRN Reason: Itching / Pruritus Insulin Human Regular (Humulin R) 0 units SC 0630 [facility] Last Admin: 12/15/17 07:00 Dose: 3 units Isosorbide Mononitrate (Imdur) 60 mg PO DAILY [facility] Last Admin: 12/15/17 08:55 Dose: 60 mg Latanoprost (Xalatan Opht) 1 drop OS HS [facility] Last Admin: 12/14/17 21:15 Dose: 1 drop Metformin HCl (Glucophage) 1,000 mg PO BID [facility] Last Admin: 12/15/17 08:55 Dose: 1,000 mg Metoprolol Tartrate (Lopressor) 25 mg PO Q12 [facility] Last Admin: 12/15/17 08:54 Dose: 25 mg Pantoprazole Sodium (Protonix Ec Tab) 40 mg PO 0630 [facility] Last Admin: 12/15/17 06:21 Dose: 40 mg Sitagliptin Phosphate (Januvia) 100 mg PO DAILY [facility] Last Admin: 12/15/17 08:53 Dose: 100 mg Timolol Maleate (Timoptic 0.5% Ophth [facility]n) 1 drop OU DAILY [facility] Last Admin: 12/15/17 08:52 Dose: 1 drop Venlafaxine HCl (Effexor Xr) 37.5 mg PO DAILY [facility] Last Admin: 12/15/17 08:55 Dose: 37.5 mg - Labs Labs: 12/14/17 06:40 12/13/17 06:00 PT 11.6 Seconds (9.8-13.1) 12/07/17 06:20 INR 1.0 (0.9-1.2) 12/07/17 06:20 - Constitutional Appears: No Acute Distress - Head Exam Head Exam: NORMAL INSPECTION - Neurological Exam Neurological Exam: Alert, Awake Neuro motor strength exam: Left Upper Extremity: 4, Right Upper Extremity: 4, Left Lower Extremity: 4, Right Lower Extremity: 4 Additional comments: She is alert, oriented, follows commands. Sensation is intact. Assessment and Plan (1) Subarachnoid hemorrhage Assessment & Plan: Case discussed with Dr. Carney, continue all current medical, physical, occupational therapies. Recommend to follow up with either Dr. Carney/ Dany 2 weeks post discharge at [address] [place] [address]. [address] [facility] [address]. Tel. # [phone]. Status: Resolved
[2017-12-15 20:12] VITALS: O2SAT 99
[2017-12-15] MEDS: Latanoprost 0.005% Opht SOUTION OS SCH (21:30)
[2017-12-16] MEDS: Pantoprazole 40 mg EC Tab PO SCH (06:47)
[2017-12-16] MEDS: Insulin Regular 100 units/ml SC SCH (06:48)
[2017-12-16 08:49] VITALS: BP 140/72; PULSE 60; RESP 21; TEMP 98
[2017-12-16] MEDS: GLUCOSAMINE HCL 750 MG PO SCH (09:04)
[2017-12-16] MEDS: Venlafaxine 37.5 mg ER Cap PO SCH (09:06)
[2017-12-16] MEDS ORDERED: GlipiZIDE 2.5 mg SR Tab PO SCH (10:30)
[2017-12-16] MEDS: diltiaZEM 120 mg/24 Hours CD Cap PO SCH (10:46)
--- NOTE | 2017-12-16 14:00 | CP.PCM.PN ---
Subjective - Date & Time of Evaluation Date of Evaluation: 12/16/17 Time of Evaluation: 13:59 - Subjective Subjective: Patient seen in room and daughter present questions answered for d/c plans no pain and will follow up with opthomology on discharge Objective - Vital Signs/Intake and Output Vital Signs (last 24 hours): Temp Pulse Resp BP Pulse Ox 98.0 F 60 21 140/72 99 12/16/17 08:48 12/16/17 10:46 12/16/17 08:48 12/16/17 10:46 12/16/17 08:48 - Medications Medications: Current Medications Alendronate Sodium (Fosamax) 70 mg PO SUN@0630 [facility] Apixaban (Eliquis) 2.5 mg PO BID [facility] PRN Reason: Protocol Last Admin: 12/16/17 09:06 Dose: 2.5 mg Atorvastatin Calcium (Lipitor) 40 mg PO HS [facility] Last Admin: 12/15/17 21:30 Dose: 40 mg Diltiazem HCl (Cardizem Cd) 120 mg PO DAILY [facility] Last Admin: 12/16/17 10:46 Dose: 120 mg Ferrous Sulfate (Feosol) 325 mg PO DAILY [facility] Last Admin: 12/16/17 09:05 Dose: 325 mg Glipizide (Glucotrol Xl) 2.5 mg PO BRK [facility] Last Admin: 12/16/17 11:30 Dose: 2.5 mg Home Med (Glucosamine Hcl [Glucosamine Hcl]) 750 mg PO BID [facility] Last Admin: 12/16/17 09:04 Dose: 750 mg Hydrocortisone (Hydrocortisone Lotion 2.5%) 1 applic TP BID PRN PRN Reason: Itching / Pruritus Insulin Human Regular (Humulin R) 0 units SC 30 [facility] Last Admin: 12/16/17 06:48 Dose: Not Given Isosorbide Mononitrate (Imdur) 60 mg PO DAILY [facility] Last Admin: 12/16/17 09:04 Dose: 60 mg Latanoprost (Xalatan Opht) 1 drop OS HS [facility] Last Admin: 12/15/17 21:30 Dose: 1 drop Metformin HCl (Glucophage) 1,000 mg PO BID [facility] Last Admin: 12/16/17 09:04 Dose: 1,000 mg Metoprolol Tartrate (Lopressor) 25 mg PO Q12 [facility] Last Admin: 12/16/17 09:05 Dose: 25 mg Pantoprazole Sodium (Protonix Ec Tab) 40 mg PO 0630 [facility] Last Admin: 12/16/17 06:47 Dose: 40 mg Sitagliptin Phosphate (Januvia) 100 mg PO DAILY [facility] Last Admin: 12/16/17 09:06 Dose: 100 mg Timolol Maleate (Timoptic 0.5% Oph Soln) 1 drop OU DAILY [facility] Last Admin: 12/16/17 09:08 Dose: 1 drop Venlafaxine HCl (Effexor Xr) 37.5 mg PO DAILY [facility] Last Admin: 12/16/17 09:06 Dose: 37.5 mg - Labs Labs: 12/14/17 06:40 12/13/17 06:00 PT 11.6 Seconds (9.8-13.1) 12/07/17 06:20 INR 1.0 (0.9-1.2) 12/07/17 06:20
[2017-12-21] MEDS ORDERED: ALENDRONATE 70 MG TAB PO SCH (06:30)
== END 2017-12-16 15:25 | disposition home or self-care (01) | DRG 57 ==
PROVIDERS: ADMIT Family Medicine; ATTEND Family Medicine
PROC: F07Z9FZ Gait Training/Functional Ambulation Treatment using Assistive, Adaptive, Supportive or Protective Equipment (ICD-10-PCS; principal; 2017-12-06)
PROC: F07Z5ZZ Bed Mobility Treatment (ICD-10-PCS; 2017-12-06)
PROC: F07Z8ZZ Transfer Training Treatment (ICD-10-PCS; 2017-12-06)
PROC: F08Z1FZ Dressing Techniques Treatment using Assistive, Adaptive, Supportive or Protective Equipment (ICD-10-PCS; 2017-12-06)
PROC: F07L6ZZ Therapeutic Exercise Treatment of Musculoskeletal System - Lower Back / Lower Extremity (ICD-10-PCS; 2017-12-06)
DX: I69.098 Other sequelae following nontraumatic subarachnoid hemorrhage (principal); H49.01 Third [oculomotor] nerve palsy, right eye; H35.30 Unspecified macular degeneration; I10 Essential (primary) hypertension; M81.0 Age-related osteoporosis without current pathological fracture; E78.00 Pure hypercholesterolemia, unspecified; I25.10 Atherosclerotic heart disease of native coronary artery without angina pectoris; Z95.5 Presence of coronary angioplasty implant and graft; I48.91 Unspecified atrial fibrillation; Z79.01 Long term (current) use of anticoagulants; D47.3 Essential (hemorrhagic) thrombocythemia; E11.42 Type 2 diabetes mellitus with diabetic polyneuropathy; R26.9 Unspecified abnormalities of gait and mobility; L27.0 Generalized skin eruption due to drugs and medicaments taken internally; T50.905A Adverse effect of unspecified drugs, medicaments and biological substances, initial encounter